=== PATIENT | male | born 1955 | race African-American/Black ===

== ENCOUNTER 2020-09-15 13:49 | Inpatient (IN) | payer MEDICARE, MEDICAID, SELFPAY ==
[2020-09-15] VITALS (44 sets, daily range): BP systolic 88–150; BP diastolic 43–114; PULSE 72–118; RESP 12–36; TEMP 34.8–36.4; O2SAT 68–100; BMI 25.8
--- NOTE | ~2020-09-15 | XR_ITS ---
EXAMINATION: XR chest ET placement DATE: 09/15/2020 16:50 INDICATION: Intubation. TECHNIQUE: A single frontal view of the chest was obtained. COMPARISON: Chest CT 09/15/2020 FINDINGS: There is mild atelectasis in the mid and lower lung zones. There is a diffuse interstitial pattern, consistent with mild pulmonary edema. No pleural effusion or pneumothorax. Cardiomegaly is n oted. The endotracheal tube tip is 4.3 cm above the royer. IMPRESSION: 1. Mild pulmonary edema. 2. Mild atelectasis in the mid and lower lung zones. 3. Cardiomegaly. Reviewed, dictated and finalized at location A.
--- NOTE | ~2020-09-15 | XR_ITS ---
EXAMINATION: XR chest 1V portable INDICATION: Respiratory failure TECHNIQUE: Portable AP chest at 0513 hours COMPARISON: 09/17/2020 FINDINGS: The endotracheal tube ends approximately 3.8 cm above the royer. Nasogastric tube is in th e stomach. Diffuse interstitial opacities persist in all lung zones, right greater than left, without significant change. Stable right basilar airspace opacities are noted. There is no pneumothorax. A s mall right pleural effusion persists. The left pleural effusion is no longer evident. Cardiomegaly is noted. IMPRESSION: 1. Cardiomegaly with stable pulmonary edema. 2. Stable right basilar airspace opacity, consistent with atelectasis versus pneumonia. Reviewed, dictated and finalized at location A. IMPRESSION: 1. Cardiomegaly with stable pulmonary edema. 2. Stable right basilar airspace opacity, consistent with atelectasis versus pn eumonia.
--- NOTE | ~2020-09-15 | XR_ITS ---
XR chest 1V portable 09/19/2020 05:26 Indication: Respiratory failure Procedure: AP portable chest Comparison: Comparison to multiple prior studies sequentially, with oldest reviewed study dated 08/2020. Findings: Cardiomegaly. Diffuse bilateral airspace disease. Small pleural effusions. No pneumothorax. Interval removal of endotracheal and NG tubes. Impression: 1: Progression of diffuse bilateral airspace disease, most likely edema versus pneumonia. 2: Small pleural effusions. 3: Cardiomegaly. Reviewed, dictated and finalized at location A. Impression: 1: Progression of diffuse bilateral airspace disease, most likely edema versus pneumonia. 2: Small pleural effusions. 3: Cardiomegaly.
--- NOTE | ~2020-09-15 | XR_ITS ---
EXAMINATION: XR chest 1V portable INDICATION: Respiratory failure TECHNIQUE: Portable AP chest at 0506 hours COMPARISON: 09/16/2020 FINDINGS: The endotracheal tube ends approximately 4.3 cm above the royer. The nasogastric tube is f ollowed as far as the stomach. Its tip is beyond the inferior margin of the radiograph. Diffuse inter stitial opacities persist with slight worsening. There are improved airspace opacities of the lower r ight lung base. A small right pleural effusion is decreased in size. There is a small left pleural ef fusion. No pneumothorax is identified. Cardiomegaly is noted. IMPRESSION: 1. Cardiomegaly with mild worsening of pulmonary edema. 2. Decreased right pleural effusion and new small left pleural effusion. 3. Improving right basilar airspace opacities, likely resolving atelectasis. Reviewed, dictated and finalized at location A.
--- NOTE | ~2020-09-15 | XR_ITS ---
EXAMINATION: XR abdomen NG/feed tube insert EXAM DATE: 09/16/2020 15:01 INDICATION: Orogastric tube insertion. TECHNIQUE: Frontal projection(s) of the abdomen for interpretation. Comparison is made to prior exami nation from 09/15/2020. FINDINGS: Feeding tube tip and side-port project over gastric bubble, adequate. Some scattered bibas ilar airspace disease with mild interval progression. And a small right pleural effusion has develope d. Nonobstructive upper abdominal bowel gas pattern. IMPRESSION: 1. Feeding tube in position. 2. Scattered bibasilar atelectasis or developing infection. 3. Development of small right pleural effusion. Reviewed, dictated and finalized at location B.
--- NOTE | ~2020-09-15 | CT_ITS ---
EXAMINATION: CTA chest PE abdomen pel DATE: 09/15/2020 16:04 INDICATION: Chest pain. Low abdominal pain. TECHNIQUE: Computed tomography angiography (CTA) of the chest was performed with 100 mL Omnipaque-350 intravenous contrast timed to evaluate the pulmonary arteries. Coronal maximum intensity projection 3D-reconstructions were created by the technologist. Computed tomography (CT) of the abdomen and pelv is was performed with intravenous contrast. Automated exposure control and iterative reconstruction t echnique were employed. The dose-length product was 609.79 mGy-cm. COMPARISON: CT abdomen 09/19/2006 FINDINGS: CTA chest: The lungs demonstrate smooth septal thickening, consistent with mild pulmonary edema. Ther e is mild atelectasis bilaterally. There are trace pleural effusions. Cardiomegaly is noted. No peric ardial effusion. There are coronary artery calcifications. There are calcifications of the aortic june ve. The central pulmonary arteries are enlarged, consistent with pulmonary arterial hypertension. The re is no pulmonary embolus. CT abdomen and pelvis: There is peripheral low attenuation in segment IVb of the liver. There is manager storage venkatesh pneumobilia, likely secondary to sphincterotomy. 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 The pancreas demonstrates heterogeneous attenuation and calcifications and adjacent fat stranding, consistent with zulyj-tt-mijnbbb pancreatitis. The spleen and adrenal gl ands are normal. The kidneys demonstrate striated nephrograms bilaterally with parenchymal volume los s. The prostate is mildly enlarged. There are no dilated loops of bowel. The appendix is normal. Ther e is mild gastrohepatic lymphadenopathy, likely reactive. There is trace pelvic ascites. There is mil d lumbar spondylosis. IMPRESSION: 1. No pulmonary embolus. 2. Mild pulmonary edema. 3. Acute and chronic pancreatitis. 4. Bilateral striated nephrograms with parenchymal volume loss, consistent with subacute infarcts jessi nichole pyelonephritis. 5. Ill-defined peripheral low-attenuation in the segment IVb of the liver, which may be infarct, hepa titis, or steatosis. 6. Mild gastrohepatic lymphadenopathy, likely reactive. Reviewed, dictated and finalized at location A. IMPRESSION: 1. No pulmonary embolus. 2. Mild pulmonary edema. 3. Acute and chronic pancreatitis. 4. Bilateral striated nephrograms with parenchymal volume loss, consistent with subacute infarcts versus pyelonephritis. 5. Ill-defined peripheral low-attenuation in the segment IVb of the liver, whic h may be infarct, hepatitis, or steatosis. 6. Mild gastrohepatic lymphadenopathy, likely reactive.
--- NOTE | ~2020-09-15 | XR_ITS ---
EXAMINATION: XR chest 1V portable INDICATION: Shortness of breath and weakness TECHNIQUE: Portable AP chest at 1512 hours COMPARISON: 09/19/2006 FINDINGS: There is chronic atelectasis of the lung bases. The heart size is upper limits of normal fo r technique. There is no pleural effusion or pneumothorax. IMPRESSION: 1. Chronic atelectasis of the lung bases. Reviewed, dictated and finalized at location A.
--- NOTE | ~2020-09-15 | XR_ITS ---
EXAMINATION: XR chest 1V portable INDICATION: Respiratory failure TECHNIQUE: Portable AP chest at 0505 hours COMPARISON: 09/15/2020 FINDINGS: The endotracheal tube ends approximately 3.5 cm above the royer. The nasogastric tube is f ollowed as far as the stomach. Its tip is beyond the inferior margin of the radiograph. A diffuse int erstitial pattern persists with slight worsening. Airspace opacity has developed at the right costoph renic angle. There is a small right pleural effusion. No pneumothorax is identified. Cardiomediastina l is noted. IMPRESSION: 1. Mild pulmonary edema with interval worsening. 2. Small right pleural effusion with right basilar airspace opacity, atelectasis versus pneumonia. Reviewed, dictated and finalized at location A. IMPRESSION: 1. Mild pulmonary edema with interval worsening. 2. Small right pleural effusion with right basilar airspace opacity, atelectasi s versus pneumonia.
--- NOTE | ~2020-09-15 | US_ITS ---
EXAMINATION: US abdomen limited EXAM DATE: 09/16/2020 09:38 INDICATION: Elevated liver function tests. TECHNIQUE: Multiple grayscale and Doppler images of the abdomen right upper quadrant were obtained (kirsten y a technologist who performed the scan) and subsequently reviewed. Correlation is made to CT abdomen from yesterday. FINDINGS: The pancreatic head and body are normal in appearance. The pancreatic tail is not visualized. There is echogenic liver parenchyma with poor penetration, hepatic steatosis. There are no focal liver le sions identified. There is no evidence of intrahepatic biliary duct dilation. Serpiginous anechoic structures at the benjamín hepatis probably collateralization from chronic portal vein thrombosis. Doppl er waveform within the portal vein demonstrates low resistance bidirectional flow. No thrombus identi fied on this study. No right-sided hydronephrosis. Common bile duct measures 3 mm, which is normal. The gallbladder fossa is unremarkable. IMPRESSION: 1. Serpiginous portal triad collateralization likely sequela from chronic prior portal vein thrombos is. 2. Abnormal bidirectional portal venous Doppler signal. Portal hypertension. 3. Hepatic steatosis. Reviewed, dictated and finalized at location B. IMPRESSION: 1. Serpiginous portal triad collateralization likely sequela from chronic prio r portal vein thrombosis. 2. Abnormal bidirectional portal venous Doppler signal. Portal hypertension. 3. Hepatic steatosis.
--- NOTE | ~2020-09-15 | XR_ITS ---
MODIFIED ESOPHAGRAM HISTORY: Evaluate for aspiration. TECHNIQUE: Modified barium esophagram was performed by speech pathologist under radiologist fluorosco pic guidance. This was recorded on tape. The exam was reviewed on 09/20/2020 10:57 CDT. The DAP for this procedure was 2.7 Gycm2. Fluoroscopy time is 3.6 minutes. One fluoroscopic image. FINDINGS: Lateral projection of the cervical spine demonstrates normal cervical alignment. There is normal swallowing function without penetration or aspiration. Persistent residual noted in the pirif orm sinuses and vallecula.. IMPRESSION: 1: Normal swallowing function without aspiration or penetration. 2: Please refer to speech pathologist report for additional detail. Reviewed, dictated and finalized at location A.
--- NOTE | ~2020-09-15 | XR_ITS ---
EXAMINATION: XR abdomen NG/feed tube insert DATE: 09/15/2020 20:17 INDICATION: Orogastric tube placement. TECHNIQUE: A supine view of the abdomen was obtained. COMPARISON: CT abdomen and pelvis 09/15/2020 FINDINGS: The lower abdomen is excluded. There are no dilated loops of bowel. The nasogastric tube ti p is in the stomach. There is mild atelectasis in left lower lung zone. There are interstitial opacit ies in the lungs, consistent with mild pulmonary edema. IMPRESSION: 1. Nasogastric tube tip in the stomach. 2. Mild pulmonary edema. Reviewed, dictated and finalized at location A.
--- NOTE | ~2020-09-15 | CT_ITS ---
EXAMINATION: CT brain wo con DATE: 09/15/2020 18:55 INDICATION: Unresponsive. TECHNIQUE: Computed tomography (CT) of the head was performed without intravenous contrast. The mA wa s adjusted according to patient size. Iterative reconstruction technique was employed. The dose-lengt h product was 681.00 mGy-cm. COMPARISON: None FINDINGS: Motion artifact is noted. There are scattered areas of low attenuation in the cerebral whit e matter. There is no intracranial hemorrhage, acute infarction, or abnormal intracranial mass lesion . The ventricles are normal in size. The orbits are normal. There is mucosal thickening in the parana nicolasa sinuses. The mastoid air cells are normal. IMPRESSION: 1. Moderate nonspecific cerebral white matter disease, which likely represents chronic small vessel i schemic disease. Reviewed, dictated and finalized at location A. IMPRESSION: 1. Moderate nonspecific cerebral white matter disease, which likely represents chronic small vessel ischemic disease.
--- NOTE | 2020-09-15 14:08 | ECG_ITS ---
Measurements Intervals [place] Rate: 103 P: 56 DE: 143 QRS: -35 QRSD: 94 T: 94 QT: 366 QTc: 480 Interpretive Statements SINUS TACHYCARDIA LEFT AXIS DEVIATION INCOMPLETE RIGHT BUNDLE BRANCH BLOCK BORDERLINE ST-T WAVE ABNORMALITY- DIFFUSE LEADS BASELINE ARTIFACT- I, II, AVR, AVL, AVF, V1-V2, V4-V6 BORDERLINE ECG Electronically Signed On 09-15-2020 14:46:47 CDT by Romulo Carrero D.O.
[2020-09-15 14:36] LABS: Anion Gap 31 mmol/L (8-16); Blood Urea Nitrogen 19 mg/dL (9-20); Calcium 9.5 mg/dL (8.4-10.2); Carbon Dioxide 6 mmol/L (22-30); Chloride 101 mmol/L (98-107); Estimated CRCL calculation 45 ml/min; Estimated Glomerular Filt Rate > 60; Glucose 97 mg/dL (75-110); Potassium 4.4 mmol/L (3.4-5.0); Sodium 138 mmol/L (137-145)
[2020-09-15 14:37] LABS: INR 2.2
[2020-09-15 14:38] LABS: Partial Thromboplastin Time 31.2 SECONDS (22.3-36.8)
--- NOTE | 2020-09-15 14:42 | ED.SOB ---
HPI - SOB/Dyspnea General Chief Complaint: Shortness of Breath/Dyspnea Stated Complaint: sob Time Seen by Provider: 09/15/20 13:53 Source: patient Mode of arrival: ambulatory Limitations: no limitations History of Present Illness HPI Narrative: This is a 65 year old male who presents for evaluation shortness of breath. On his arrival to triage he was found to have oxygen saturation 72% on room air. He states he has been short of breath for at least 2 weeks. He states he would have chest pain when he was performing activity at work. He denies having pain now. He also reports nonproductive cough and leg swelling. He has not been evaluated by a doctor in several years. He is unsure of fever or chills. He denies abdominal pain but reports intermittent nausea and vomiting. He states he had coffee ground emesis 4 days ago but denies any since. He denies melena. Denies issues urinating. HE also notes leg swelling. Related Data Home Medications Medication Instructions Recorded Confirmed No Home Medications 09/15/20 09/15/20 Allergies Allergy/AdvReac Type Severity Reaction Status Date / Time No Known Allergies Allergy Unknown Verified 09/15/20 14:05 Review of Systems Review of Systems: All systems reviewed & are unremarkable except as noted in HPI and below Constitutional: Constitutional: Denies chills and Denies fever(s) Cardiovascular: Cardiovascular: Reports chest pain and Denies radiating jaw, neck or arm pain Respiratory: Respiratory: Reports cough and Reports dyspnea Gastrointestinal: Gastrointestinal: Reports nausea and Reports vomiting Neurologic: Denies headache(s) [facility] Past Medical History Medical History (Updated 09/15/20 @ 21:56 by Lois Nix MD) PUD (peptic ulcer disease) Surgical History Surgical History (Updated 09/15/20 @ 14:43 by Lois Nix MD) H/O resection of small bowel Family History Family History (Updated 09/15/20 @ 20:42 by Leesa Glover RN) Other Unknown family medical history Social History Social History Smoking status: Unknown if ever smoked Alcohol intake: current Drinks per week: 28 Substance use: unknown Substance use type: unknown Gender identity (if verbalized by the patient): Male Spiritual care concerns: No Exam Const: General: no acute distress (mild), alert and ill appearing Orientation/consciousness: patient oriented x3 HENMT: Head: normocephalic and atraumatic Face and sinus: face symmetric Mouth: Yes lip normal, Yes oropharynx normal and Yes moist mucous membranes Eyes: Pupils: Equal, round and reactive pupils present EOM: EOMs intact bilaterally Chest: Chest palpation & inspection: normal inspection of the chest Resp: Effort & Inspection: not labored, no retractions, tachypneic and no use of accessory muscles Auscultation: clear to auscultation bilaterally Other: able to talk in complete sentences. Cardio: Rate: tachycardic Rhythm: regular rhythm Heart sounds: no murmurs GI: GI Palp: Yes Soft to palpation, Yes Tenderness to palpation present (GI) (epigastric, LUQ ), No Guarding due to palpation present (GI) and No Rigid due to palpation Auscultation: normal bowel sounds Other: brown stool guaic positive Skin: General skin exam: normal color Rashes: no rashes Neuro: General: patient oriented x3, moves all extremities and CN's II-XI intact bilaterally Psych: Mental Status: mental status grossly normal Affect: normal affect Course Reevaluation(s) Reevaluation #1: Patient appears to be breathing better. He is no longer tachypneic. I explained to patient and his brother that he has hemoglobin of 3 as likely cause of his critical condition. He is acidotic from. Pulse oximeter is not reading well but on ABG oxygenation appears to be okay. He is alert and oriented x 3. Date: 09/15/20 Time: 15:15 Reevaluation #2: Patient returned from CT scan obtunded. He was mumbling with arms c
[2020-09-15 14:44] LABS: Alveolar/Arterial O2 Gradient 452.4 mmHg; Base Excess ABG -19.2 mEq/l (+/-2.0); Fractional Inspired Oxygen 100 %; Oxygen Saturation ABG 99.5 % (95.0-100.0); Oxyhemoglobin 98.2 % THb (90.0-100.0); PO2 ABG 247.9 mmHg (80.0-100.0); PO2 FiO2 Ratio Arterial Blood 2.48 %; Reduced Hemoglobin 0.8 %THb (0-5.0)
[2020-09-15 14:45] LABS: PCO2 ABG 12.7 mmHg (35.0-45.0)
[2020-09-15 14:46] LABS: Device NON-REBREATHER MASK; Site Drawn RIGHT BRACHIAL; Total Hemoglobin 3.1 g/dL (12.0-18.0)
--- NOTE | 2020-09-15 14:48 | PC.NURSE ---
called lab, José, added on Hepatic, Lip, PT INR PTT [id number]
[2020-09-15 14:49] LABS: Lactic Acid Reflex 21.2 mmol/L (0.7-2.1)
[2020-09-15 14:54] LABS: NT Pro B Type Natriuretic Pept 3740 pg/mL (5-100); Troponin I 0.095 ng/mL (0.000-0.034)
[2020-09-15 14:58] LABS: Basophils Percent Auto 0.1 % (0.2-1.2); Immature Granulocyte Absolute 0.26 K/mm3 (0.00-0.031); Immature Granulocyte Percent A 1.6 % (0-0.5); Lymphocytes Absolute Auto 1.11 K/mm3 (0.9-3.2); Lymphocytes Percent Auto 6.9 % (18.3-44.2); Mean Corpuscular HGB Conc 22.3 g/dl (32-36); Mean Corpuscular Hemoglobin 17.8 pg (26-34); Mean Corpuscular Volume 79.6 fl (80-100); Mean Platelet Volume 10.3 fl (7.4-10.4); Monocytes Absolute Auto 1.1 K/mm3 (0.1-0.6); Neutrophils Absolute Auto 13.5 K/mm3 (1.3-6.7); Neutrophils Percent Auto 84.4 % (45.5-73.1); Nucleated Red Blood Cells Absolute Auto 0.3 K/mm3 (0.0-0.012); Nucleated Red Blood Cells Perc 2.1 % (0.0-0.2); Platelet Count Result 129 k/mm3 (150-375); Red Blood Count 1.52 M/mm3 (4.6-6.20); Red Cell Distribution Width 29.2 % (11.5-14.5)
[2020-09-15 15:07] LABS: Hematocrit 12.1 % (42.0-52.0); Hemoglobin 2.7 g/dL (14.0-18.0); INR 2.4; Prothrombin Time 26.8 Seconds (11.1-14.7)
[2020-09-15 15:08] LABS: Acanthocytes 1+ (NORMAL); Burr Cells 2+ (NORMAL); Hypochromasia 3+ (NORMAL); Partial Thromboplastin Time 26.3 SECONDS (22.3-36.8); Platelet Estimate Adequate (Adequate)
[2020-09-15 15:10] LABS: Albumin Level 3.6 g/dL (3.5-5.1); Alkaline Phosphatase 140 U/L (38-126); Bilirubin Direct 0.1 mg/dL (0-0.3); Lipase 513 U/L (23-300)
[2020-09-15 15:12] LABS: pH ABG 7.293 (7.350-7.450)
[2020-09-15 15:22] LABS: Alanine Aminotransferase 173 U/L (4-50); Aspartate Amino Transferase 385 U/L (17-59)
[2020-09-15] MEDS: PANTOPRAZOLE SODIUM IV 40 MG VIAL IV PUSH (15:30)
--- NOTE | 2020-09-15 16:10 | PC.NURSE ---
PT BACK FROM CT SCAN. BECAME RIGID AND GAZE TO LEFT WITH MOANING. DR OROSCO EMERGENTLY TO BEDSIDE.
--- NOTE | 2020-09-15 16:14 | PC.NURSE ---
EPI 1AMP GIVEN DEXTROSE 1AMP GIVEN
[2020-09-15] MEDS: SODIUM CHLORIDE 0.9% IV 1,000 ML 999 ML (16:15)
--- NOTE | 2020-09-15 16:15 | PC.NURSE ---
CPR INITIATED PER DR OROSCO REQUEST D/T PT'S EXTREME BRADYCARDIC EVENT.
--- NOTE | 2020-09-15 16:16 | PC.NURSE ---
1 AMP BICARB GIVEN
--- NOTE | 2020-09-15 16:16 | PC.NURSE ---
CPR IN PROGRESS
--- NOTE | 2020-09-15 16:17 | PC.NURSE ---
+PULSE WITH FEMORAL CHECK. CPR HELD. DR OROSCO AT BEDSIDE PREPARING TO INTUBATE.
--- NOTE | 2020-09-15 16:18 | PC.NURSE ---
8.0 ETT 26 @ LIP. +COLOR CHANGE.
--- NOTE | 2020-09-15 16:19 | PC.NURSE ---
PRBC BLOOD TO BEDSIDE TO INITIATE EMERGENTLY
[2020-09-15] MEDS: SODIUM CHLORIDE 0.9% IV 250 ML 30 ML IV CONT ×2 (16:25→20:00)
--- NOTE | 2020-09-15 16:30 | PC.NURSE ---
PT NOTED TO HAVE EYES DEVIATING TO THE L. DECORTICATE POSTURING FOR APPROX [address] OROSCO MADE AWARE.
[2020-09-15] MEDS: LORazepam INJ (*CRX) 2 MG/ML VIAL (16:37)
--- NOTE | 2020-09-15 16:40 | PC.NURSE ---
MAY CATH PLACED. SCANT AMOUNT URINE NOTED IN THE TUBE. PT LAURA WELL
--- NOTE | 2020-09-15 16:50 | PC.NURSE ---
PXCR IN PROGRESS AT THIS TIME.
[2020-09-15 16:55] LABS: Alveolar/Arterial O2 Gradient 90.1 mmHg; Base Excess ABG -28.6 mEq/l (+/-2.0); Fractional Inspired Oxygen 50 %; HCO3 ABG 2.7 mEq/l (22.0-26.0); Oxygen Content ABG 8.6 %vol (16.0-22.0); Oxygen Saturation ABG 98.9 % (95.0-100.0); Oxyhemoglobin 97.2 % THb (90.0-100.0); PO2 FiO2 Ratio Arterial Blood 4.96 %
[2020-09-15 16:57] LABS: Device VENTILATOR; Modified Allen's Test Pass; PCO2 ABG 16.4 mmHg (35.0-45.0); Site Drawn LEFT RADIAL; Total Hemoglobin 5.8 g/dL (12.0-18.0); pH ABG 6.833 (7.350-7.450)
[2020-09-15 16:58] LABS: Arterial Blood Gas PEEP 5 cmH2O; Arterial Blood Gas Tidal Volume 550 ml; Arterial Blood Gas Vent Mode CMV; Arterial Blood Gas Ventilator rate 14 /MIN
[2020-09-15 17:23] LABS: Reflex Lactic Acid Yes or No Add Lactic
[2020-09-15] MEDS: SODIUM BICARBONATE 8.4% 50 MEQ/50 ML SYRINGE IV PUSH ×3 (17:25→22:00)
--- NOTE | 2020-09-15 17:40 | PC.NURSE ---
CORA AT BEDSIDE TO PLACE TLC TO R FEMORAL.
--- NOTE | 2020-09-15 17:45 | P.PCNBED_ITS ---
Procedures Central Line Placement Right Femoral: Central Line Date: 09/15/20 <CHERRY Sheppard Last Filed: 09/15/20 18:21> Central Line Time: 17:45 <CHERRY Sheppard Last Filed: 09/15/20 18:21> Performed Emergently - Given emergent patient condition, temporal constraints may have precluded informed consent.: Yes <CHERRY Sheppard Last Filed: 09/15/20 18:21> Consent: Line placed under emergency circumstances. <SARAHI Sheppard Last Filed: 09/15/20 18:21> Time Out Performed: Yes <CHERRY Sheppard Last Filed: 09/15/20 18:21> Patient Position: supine <CHERRY Sheppard Last Filed: 09/15/20 18:21> Patient placed on monitor/pulse ox: Yes <CHERRY Sheppard Last Filed: 09/15/20 18:21> Provider Prep: mask, sterile gown, sterile gloves, Max. sterile barrier precautions, cap and hand hygiene with conventional soap/water or alcohol based hand rub <CHERRY Sheppard Last Filed: 09/15/20 18:21> Central line prep: 2% Chlorhexidine scrub <CHERRY Sheppard Last Filed: 09/15/20 18:21> Local anesthesia used: lidocaine 1% <CHERRY Sheppard Last Filed: 09/15/20 18:21> Amount of anesthesia used (ml): 5 <CHERRY Sheppard Last Filed: 09/15/20 18:21> Sterile US Technique with sterile gel/sterile probe covers: Yes <CHERRY Sheppard Last Filed: 09/15/20 18:21> Central line lumen inserted: triple <CHERRY Sheppard Last Filed: 09/15/20 18:21> Finnish: 7 <CHERRY Sheppard Last Filed: 09/15/20 18:21> Length (cm): 20 <CHERRY Sheppard Last Filed: 09/15/20 18:21> Post Procedure: sutured in place, good blood return, all ports aspirated, flushed, capped, transparent dressing, securement product and aseptic technique maintained throughout procedure <CHERRY Sheppard Last Filed: 09/15/20 18:21> Post procedure x-ray: other (n/a with femoral placement) <CHERRY Sheppard Last Filed: 09/15/20 18:21> Patient tolerated procedure: well <CHERRY Sheppard Last Filed: 09/15/20 18:21> Complications: none <CHERRY Sheppard Last Filed: 09/15/20 18:21> Additional comments: Line placed while patient was still in the emergency department. Attending ED physician, Dr. Lois Nix, available if needed. <CHERRY Sheppard Last Filed: 09/15/20 18:21>
[2020-09-15] MEDS: PHYTONADIONE ADULT INJ 10 MG in DEXTROSE 5% IN WATER 50 ML 100 MG IVPB (17:54)
--- NOTE | 2020-09-15 18:00 | PM.IMHP ---
H&P: HPI History of Present Illness Date/Time: 09/15/20 18:00 Chief Complaint: Shortness of breath. Narrative: This is a 65-year-old male who has not been to a doctor for several years with history of alcohol abuse, pancreatitis, and peptic ulcer disease who presented to the emergency department earlier today via private vehicle from home accompanied by his brother for evaluation of significant shortness of breath over the last 2 days. On arrival to triage his SpO2 was 72% on room air and he admitted that he had not been feeling well with increasing shortness of breath for the last 2 weeks. Reportedly he was having some chest pain while doing activities at work as well although he was not complaining of any chest pain today. He denied overt abdominal pain but has been having intermittent nausea and vomiting with reported coffee-ground emesis 4 days ago but none since that time. He was placed on oxygen had several labs drawn with pertinent results to include a hemoglobin and hematocrit of 2.7 and 12.1% respectively, lactic acid level of 21.2, prolonged coag studies, and an ABG with a pH of 7.293, pCO2 12.9, and bicarb 6.0. The patient returned from CT scan obtunded. He then became bradycardic and a pulse was unable to be palpated and CPR was initiated. He received 1 amp of epinephrine, an amp of D50, and 1 amp of bicarb with ROSC achieved within 3 minutes. He was intubated and shortly thereafter he had witnessed seizure-like activity. It is my understanding that he may have had alcohol withdrawal seizures before. Review of Systems Review of Systems: Narrative: A review of systems is unable to be obtained given his current clinical condition as above. [facility] Past Medical History Medical History (Updated 09/15/20 @ 23:42 by Jia Ochoa PA-C) Alcohol abuse Gastroesophageal reflux disease History of tobacco use Pancreatitis (~04/2003) Peptic ulcer disease Surgical History Surgical History (Updated 09/15/20 @ 23:28 by Jia Ochoa PA-C) History of chest tube placement History of esophagogastroduodenoscopy (~04/2003) EGD showed gastritis and edema of the duodenum with prominent veins in the gastric body though no true varices. History of resection of small bowel Related to peptic ulcer disease. Family History Family History Other Unknown family medical history Social History Social History (Updated 09/15/20 @ 23:30 by Jia Ochoa PA-C) Social History: The patient lives in [place]. EMR review shows that he previously smoked a pack of cigarettes per day although I am not certain whether he is currently smoking. He has a longstanding history of alcohol abuse, reportedly drinking 28 alcoholic beverages a week. Prior history of marijuana use. He has a brother who is his emergency contact. Meds Home Medications and Allergies Home Medications Medication Instructions Recorded Confirmed Type No Home Medications 09/15/20 09/15/20 History Allergies Allergy/AdvReac Type Severity Reaction Status Date / Time No Known Allergies Allergy Unknown Verified 09/15/20 14:05 Vital Signs Vital Signs - 24 hr 09/15/20 13:56 09/15/20 14:00 09/15/20 14:16 Temperature 96.6 F L Pulse Rate 115 H 103 H 101 H Respiratory Rate 36 H 23 H Blood Pressure 121/43 L 123/45 L Pulse Oximetry 72 L 85 L 09/15/20 14:31 09/15/20 15:01 09/15/20 15:17 Temperature Pulse Rate 103 H 104 H 102 H Respiratory Rate 31 H 24 H 26 H Blood Pressure 125/58 L 121/61 111/45 L Pulse Oximetry 09/15/20 15:35 09/15/20 15:39 09/15/20 16:20 Temperature 97 F L Pulse Rate 102 H 109 H 118 H Respiratory Rate 28 H 23 H 18 Blood Pressure 97/81 L 115/66 150/114 H Pulse Oximetry 09/15/20 16:25 09/15/20 16:45 09/15/20 16:46 Temperature 97 F L Pulse Rate 98 99 96 Respiratory Rate 22 H 21 H Blood Pressure 111/91 H 111/91 H Pulse Oximetry 100 10
[2020-09-15] MEDS: SODIUM BICARBONATE 8.4% 50 MEQ/50 ML VIAL (18:04)
[2020-09-15] MEDS: OCTREOTIDE ACETATE 50 MCG/ML VIAL IV PUSH (18:05)
[2020-09-15 18:24] LABS: Ammonia 56 umol/L (9-30)
[2020-09-15] MEDS: FENTANYL 2,500MCG/NS250ML(*CRX 2,500 MCG/250 ML BAG IV CONT (18:32)
[2020-09-15 18:35] LABS: Lactic Acid 21.4 mmol/L (0.7-2.1)
[2020-09-15] MEDS: MIDAZOLAM 100MG/NS 100ML(*CRX) 100 MG/100 ML BAG IV CONT (18:35)
--- NOTE | 2020-09-15 18:45 | PC.NURSE ---
PT TO CT FOR SCAN
[2020-09-15 19:00] LABS: Glucose Point of Care 63 (65-105)
--- NOTE | 2020-09-15 19:50 | ADMGEN ---
This patient, Gasper Correia, was admitted to Intensive Care Unit-2. Patient/family oriented to hospital policies and general routines including ID bracelet, bed and alarms, visiting hours, pain management, procedures, bathroom and other care routines, personal items, smoking policy, room service/diet, and visiting hours. Information on how to activate the Rapid Response Team has been discussed. Patient/Family are encouraged to report perceived risks to care and to ask questions if they do not understand what they are told or what they should do.
[2020-09-15 20:05] LABS: Fractional Inspired Oxygen 40 %; HCO3 ABG 9.5 mEq/l (22.0-26.0); Oxygen Content ABG 8.6 %vol (16.0-22.0); Oxygen Saturation ABG 97.6 % (95.0-100.0); Oxyhemoglobin 95.8 % THb (90.0-100.0); PO2 ABG 111.2 mmHg (80.0-100.0); PO2 FiO2 Ratio Arterial Blood 2.78 %
[2020-09-15 20:07] LABS: Device VENTILATOR; Modified Allen's Test Pass; PCO2 ABG 21.7 mmHg (35.0-45.0); Site Drawn RIGHT RADIAL; Total Hemoglobin 6.2 g/dL (12.0-18.0); pH ABG 7.261 (7.350-7.450)
[2020-09-15 20:08] LABS: Arterial Blood Gas PEEP 5 cmH2O; Arterial Blood Gas Tidal Volume 550 ml; Arterial Blood Gas Vent Mode CMV; Arterial Blood Gas Ventilator rate 14 /MIN
[2020-09-15 20:37] LABS: Partial Thromboplastin Time 35.2 SECONDS (22.3-36.8)
[2020-09-15 20:38] LABS: Anion Gap 26 mmol/L (8-16); Blood Urea Nitrogen 20 mg/dL (9-20); Calcium 8.5 mg/dL (8.4-10.2); Carbon Dioxide 12 mmol/L (22-30); Chloride 101 mmol/L (98-107); Estimated CRCL calculation 42 ml/min; Estimated Glomerular Filt Rate 57; Glucose 213 mg/dL (75-110); Magnesium 1.9 mg/dL (1.6-2.3); Potassium 3.9 mmol/L (3.4-5.0); Sodium 139 mmol/L (137-145)
[2020-09-15 20:50] LABS: Troponin I 0.161 ng/mL (0.000-0.034)
[2020-09-15] MEDS: SODIUM BICARBONATE 8.4% 150 MEQ in DEXTROSE 5% 1,000 ML 950 ML 50 MEQ IV CONT (21:25)
[2020-09-15] MEDS: CENTRAL LINE FLUSH 10 ML IV PUSH (22:07)
[2020-09-15 23:03] LABS: Lactic Acid Reflex 14.2 mmol/L (0.7-2.1)
[2020-09-16] VITALS (44 sets, daily range): BP systolic 89–117; BP diastolic 60–79; PULSE 72–100; RESP 12–27; TEMP 36.6–37.5; O2SAT 92–100; BMI 24.7
[2020-09-16] MEDS: THIAMINE HCL 200 MG/2 ML VIAL 100 MG IV PUSH ×2 (00:31→07:16)
[2020-09-16 03:44] LABS: Glucose Point of Care 321 (65-105)
[2020-09-16] MEDS: CENTRAL LINE FLUSH 10 ML IV PUSH ×4 (04:43→20:42)
[2020-09-16 04:45] LABS: Alveolar/Arterial O2 Gradient 179.5 mmHg; Base Excess ABG 3.1 mEq/l (+/-2.0); Fractional Inspired Oxygen 40 %; HCO3 ABG 24.9 mEq/l (22.0-26.0); Oxygen Content ABG 10.6 %vol (16.0-22.0); Oxygen Saturation ABG 96.9 % (95.0-100.0); Oxyhemoglobin 94.4 % THb (90.0-100.0); PCO2 ABG 27.2 mmHg (35.0-45.0); PO2 ABG 74.4 mmHg (80.0-100.0); PO2 FiO2 Ratio Arterial Blood 1.86 %
[2020-09-16 04:46] LABS: Device VENTILATOR; Modified Allen's Test Pass; Site Drawn RIGHT RADIAL; Total Hemoglobin 7.9 g/dL (12.0-18.0); pH ABG 7.579 (7.350-7.450)
[2020-09-16 04:47] LABS: Arterial Blood Gas PEEP 5 cmH2O; Arterial Blood Gas Tidal Volume 450 ml; Arterial Blood Gas Vent Mode CMV; Arterial Blood Gas Ventilator rate 20 /MIN
[2020-09-16 05:02] LABS: Basophils Percent Auto 0.3 % (0.2-1.2); Eosinophils Percent Auto 0.3 % (0-4.4); Hemoglobin 7.6 g/dL (14.0-18.0); Immature Granulocyte Absolute 0.12 K/mm3 (0.00-0.031); Immature Granulocyte Percent A 0.8 % (0-0.5); Immature Platelet Fraction Pct 5.3 % (0.9-11.2); Lymphocytes Absolute Auto 0.47 K/mm3 (0.9-3.2); Lymphocytes Percent Auto 3.2 % (18.3-44.2); Mean Corpuscular Hemoglobin 27.1 pg (26-34); Mean Corpuscular Volume 82.1 fl (80-100); Mean Platelet Volume 9.8 fl (7.4-10.4); Monocytes Absolute Auto 0.6 K/mm3 (0.1-0.6); Monocytes Percent Auto 4.1 % (2.6-8.5); Neutrophils Absolute Auto 13.3 K/mm3 (1.3-6.7); Neutrophils Percent Auto 91.3 % (45.5-73.1); Nucleated Red Blood Cells Absolute Auto 0.2 K/mm3 (0.0-0.012); Nucleated Red Blood Cells Perc 1.6 % (0.0-0.2); Platelet Count Result 65 k/mm3 (150-375); White Blood Count 14.6 K/mm3 (4.5-10.0)
[2020-09-16 05:12] LABS: Add Urine Microscopic? YES; Appearance Urine Cloudy (Clear); Bilirubin Urine Negative (Negative); Blood Urine 3+ (Negative); Color Urine Amber (Yellow); Glucose Urine UA Negative (Negative); Ketones Urine Trace mg/dL (Negative); Leukocyte Esterase Ur Negative LEU/UL (Negative); Mucus Urine Rare /lpf; Nitrate Urine Negative (Negative); Protein Urine 1+ mg/dL (Negative); RBC Urine 51-75 /hpf (0-2); Squamous Epithelial Cell Urine Rare /hpf (Few); WBC Urine 31-50 /hpf
[2020-09-16 05:17] LABS: Alanine Aminotransferase 200 U/L (4-50); Albumin Level 2.6 g/dL (3.5-5.1); Alkaline Phosphatase 102 U/L (38-126); Anion Gap 11 mmol/L (8-16); Aspartate Amino Transferase 625 U/L (17-59); Bilirubin,Total 2.3 mg/dL (0.2-1.3); Blood Urea Nitrogen 26 mg/dL (9-20); Calcium 8.2 mg/dL (8.4-10.2); Carbon Dioxide 29 mmol/L (22-30); Chloride 98 mmol/L (98-107); Creatine Kinase 121 U/L (55-170); Estimated CRCL calculation 45 ml/min; Estimated Glomerular Filt Rate > 60; Glucose 326 mg/dL (75-110); Lipase 1211 U/L (23-300); Magnesium 1.6 mg/dL (1.6-2.3); Potassium 3.3 mmol/L (3.4-5.0); Sodium 138 mmol/L (137-145)
[2020-09-16 05:19] LABS: Specific Grav Ur 1.047 (1.001-1.035)
[2020-09-16 05:27] LABS: Lactic Acid Reflex 4.6 mmol/L (0.7-2.1)
[2020-09-16 05:34] LABS: INR 1.8; Partial Thromboplastin Time 35.4 SECONDS (22.3-36.8); Prothrombin Time 21.3 Seconds (11.1-14.7)
[2020-09-16 05:50] LABS: Fibrinogen 152 mg/dl (215-510)
[2020-09-16 05:51] LABS: D Dimer 4.21 ug/mL (<0.48)
[2020-09-16 06:12] LABS: Hepatitis B Surface Antigen Negative (Negative)
[2020-09-16 06:17] LABS: HAV RESULT Negative (Negative); Hepatitis B Core IgM Result Negative (Negative)
[2020-09-16 06:29] LABS: Hepatitis C Virus Antibody Negative (Negative)
[2020-09-16] MEDS: FOLIC ACID 1 MG/0.2 ML INJ IV PUSH (07:15)
[2020-09-16 08:00] LABS: Reflex Lactic Acid Yes or No Add Lactic
[2020-09-16 08:14] LABS: Glucose Point of Care 404 (65-105)
[2020-09-16] MEDS: POTASSIUM CHLORIDE 20 MEQ PACKET (FOR LIQUID) 40 MEQ FEED TUBE (08:23)
[2020-09-16] MEDS: FUROSEMIDE INJ 40 MG/4 ML VIAL IV PUSH (08:23)
[2020-09-16] MEDS: SODIUM CHLORIDE 0.9% IV 250 ML 30 ML IV CONT (08:26)
[2020-09-16 08:34] LABS: Lactic Acid 2.4 mmol/L (0.7-2.1)
[2020-09-16] MEDS: INSULIN HUMAN REGULAR (*BKC) 100 UNITS/ML 10 UNITS IV PUSH (08:47)
[2020-09-16] MEDS: LACTULOSE 20 GM/30 ML UDC PO ×3 (08:56→23:15)
[2020-09-16] MEDS: PANTOPRAZOLE SODIUM IV 40 MG VIAL IV PUSH ×2 (08:56→20:42)
--- NOTE | 2020-09-16 09:15 | WPDCNINT ---
Assessment and Plan Assessment and plan (1) GI bleeding: Code(s): K92.2 - Gastrointestinal hemorrhage, unspecified Status: Acute Assessment and Plan: Patient with a history of peptic ulcer disease with reports of hematemesis 4 days ago, variceal bleed is also possibility Status post transfusion of 4 units PRBCs yesterday Monitor hemoglobin every 6 hours and transfuse as needed Continue IV Protonix and IV octreotide drip. Dr. Mac (Gastroenterology) consulted and plan for EGD today (2) Hemorrhagic shock: Code(s): R57.8 - Other shock Status: Acute Assessment and Plan: Initially patient was hypotensive and blood pressure is improved with blood transfusion and IV fluids Continue to monitor (3) Cardiac arrest: Code(s): I46.9 - Cardiac arrest, cause unspecified Status: Acute Assessment and Plan: Likely multifactorial in etiology to include profound acidosis and hemorrhagic shock. ROSC achieved within approximately 3 minute after receiving 1 amp each of epinephrine, sodium bicarbonate, and dextrose. He was making purposeful movement post intubation Pending Echocardiogram (4) Acute respiratory failure: Code(s): J96.00 - Acute respiratory failure, unspecified whether with hypoxia or hypercapnia Status: Acute Assessment and Plan: Chest x-ray ABG and ventilator settings reviewed Ventilator adjusted Lasix IV for pulmonary edema (5) Metabolic acidosis: Code(s): E87.2 - Acidosis Status: Acute Assessment and Plan: Patient is profoundly acidotic due to hypoperfusion and tissue hypoxemia given severe anemia. On IV bicarb infusion and given IV bicarb Acidosis has improved and IV bicarb has been discontinued (6) Alcohol abuse: Code(s): F10.10 - Alcohol abuse, uncomplicated Status: Acute Assessment and Plan: Patient reportedly had witnessed seizure activity post intubation and may have had an alcohol withdrawal seizure in the past. Currently sedated with Versed infusion Folate and thiamine supplementation. (7) Acute on chronic pancreatitis: Code(s): K85.90 - Acute pancreatitis without necrosis or infection, unspecified; K86.1 - Other chronic pancreatitis Status: Acute Assessment and Plan: Noted on CT today with a lipase of 513. Lipase elevation may be related to peptic ulcers as well. NPO at this time Monitor lipase (8) Abnormal abdominal CT scan: Code(s): R93.5 - Abnormal findings on diagnostic imaging of other abdominal regions, including retroperitoneum Status: Acute Assessment and Plan: In addition to acute on chronic pancreatitis there were also findings of subacute infarcts versus pyelonephritis in both kidneys as well as ill-defined peripheral low attenuation in segment 4B of the liver which may be infarct, hepatitis, or steatosis. Mild gastrohepatic lymphadenopathy also noted, likely reactive from pancreatitis and possible underlying peptic ulcers. No rule for anticoagulation if these are infarcts given profound anemia and GI bleed. (9) Elevated troponin: Code(s): R77.8 - Other specified abnormalities of plasma proteins Status: Acute Assessment and Plan: Likely secondary to shock anemia hemorrhage and sepsis Borderline ST waves in all leads, no ST elevation. Echocardiogram ordered (10) Transaminitis: Code(s): R74.01 - Elevation of levels of liver transaminase levels Status: Acute Assessment and Plan: Shock liver vs hepatitis or even possible infarct noted on CT today. Hepatitis panel negative Right upper quadrant ultrasound ordered and pending Continue to trend LFTs. (11) Coagulopathy: Code(s): D68.9 - Coagulation defect, unspecified Status: Acute Assessment and Plan: Likely secondary to deliver dysfunction. Patient received 3 units of FFP yesterday 10 mg of vitamin
[2020-09-16 11:08] LABS: Hematocrit 24.7 % (42.0-52.0); Hemoglobin 8.1 g/dL (14.0-18.0)
[2020-09-16 11:38] LABS: Glucose Point of Care 239 (65-105)
[2020-09-16] MEDS: INSULIN ASPART (*BKC) 100 UNITS/ML SUB-Q ×2 (11:41→15:33)
--- NOTE | 2020-09-16 14:17 | SUR.OPER ---
3 bottom teeth loose prior to EGD. 2 teeth came out after EGD with only 1 retrieved. used scope to look for tooth, it was not found in the mouth.
--- NOTE | 2020-09-16 14:48 | WPDGICN ---
Assessment and Plan Assessment and plan (1) GI bleeding: Code(s): K92.2 - Gastrointestinal hemorrhage, unspecified Status: Acute Assessment and Plan: s/p blood transfusion and iv protonix with octreotide he is an alcoholic, differential could be varices, ulcers, esophagitis, etc will proceed with urgent EGD to assess source of bleeding (2) Coffee ground emesis: Code(s): K92.0 - Hematemesis Status: Acute Assessment and Plan: noted by OGT, low BP improved after medical treatment (3) Severe anemia: Code(s): D64.9 - Anemia, unspecified Status: Acute Assessment and Plan: supportive care in icu with blood products, protonix, octreotide, etc EGD domonique continue to monitor counts (4) Shock liver: Code(s): K72.00 - Acute and subacute hepatic failure without coma Status: Acute Assessment and Plan: worsening liver enzymes probably due to severe anemia and shock, also underlying liver disease CT scan reviewed will get hepatitis panel he is an alcoholic (5) Hemorrhagic shock: Code(s): R57.8 - Other shock Status: Acute (6) Alcohol abuse: Code(s): F10.10 - Alcohol abuse, uncomplicated Status: Acute (7) Transaminitis: Code(s): R74.01 - Elevation of levels of liver transaminase levels Status: Acute (8) Seizure-like activity: Code(s): R56.9 - Unspecified convulsions Status: Acute Assessment and Plan: icu care thiamine, mvi, risk for DT's (9) Coagulopathy: Code(s): D68.9 - Coagulation defect, unspecified Status: Acute (10) Hepatic encephalopathy: Code(s): K72.90 - Hepatic failure, unspecified without coma Status: Acute (11) Metabolic acidosis: Code(s): E87.2 - Acidosis Status: Acute (12) Acute respiratory failure: Code(s): J96.00 - Acute respiratory failure, unspecified whether with hypoxia or hypercapnia Status: Acute Assessment and Plan: currently intubated (13) Cardiac arrest: Code(s): I46.9 - Cardiac arrest, cause unspecified Status: Acute Assessment and Plan: he received CPR yesterday prognosis is guarded GI Consult Note Consult date/time: 09/16/20 07:30 Reason for consult: GIB, coffee ground emesis, alcoholic HPI: Gasper Correia is a 65 year old male who is intubated in ICU (history obtained from records, no family right now). It seems that he has not been to a doctor for several years and he is an alcoholic (drinks 1 pint every other day based on RN report) with previous history of pancreatitis. Apparently he came with his brother for evaluation of significant shortness of breath over the last 2 days. He was hypoxic on arrival, also had chest pain with intermittent nausea and coffee ground emesis. He was found to have severe anemia with hb 2.7, platelet 65, inr 1.8, BUN 26, bili 2.3, transaminase 170-200, creat 1.5, lactic acid level of 21.2, ABG with a pH of 7.293, pCO2 12.9, and bicarb 6.0. He became bradycardic with no palpable pulse, received CPR with 1 amp of epinephrine, an amp of D50, and 1 amp of bicarb with ROSC achieved within 3 minutes. He was intubated and shortly thereafter he had witnessed seizure-like activity. OGT was placed that showed coffee ground material, also received blood transfusion and hb 7, lactic 2.4 now. He is on iv octreotide, protonix. He is not on pressors now. CT scan a/p reviewed No pulmonary embolus, mild pulmonary edema, Acute and chronic pancreatitis, bilateral striated nephrograms with parenchymal volume loss, consistent with subacute infarcts versus pyelonephritis. Review of Systems Review of Systems: ROS unobtainable: Yes unobtainable due to endotracheal tube, unobtainable due to medical condition and unobtainable due to mental status [facility] Past Medical History Medical History (Updated 09/16/20 @ 15:43 by Vahe Mac MD) Alcohol abuse Coffee ground emesis Gastr
--- NOTE | 2020-09-16 15:29 | PM.IMPN ---
Progress Note: A&P Assessment and Plan (1) Hemorrhagic shock: Code(s): R57.8 - Other shock Status: Acute Assessment and Plan: Hemoglobin and hematocrit are much better 2 improved to 8 (2) GI bleeding: Code(s): K92.2 - Gastrointestinal hemorrhage, unspecified Status: Acute Assessment and Plan: Patient with a history of peptic ulcer disease with reports of hematemesis 4 days ago. sp 4 units of blood On Protonix and octreotide drips. (Gastroenterology) consulted. (3) Cardiac arrest: Code(s): I46.9 - Cardiac arrest, cause unspecified Status: Acute Assessment and Plan: Likely multifactorial in etiology to include profound acidosis and hemorrhagic shock. (4) Acute respiratory failure: Code(s): J96.00 - Acute respiratory failure, unspecified whether with hypoxia or hypercapnia Status: Acute Assessment and Plan: Patient intubated post arrest. Vent management per Dr. Krishnamurthy (trade mark attorney). (5) Metabolic acidosis: Code(s): E87.2 - Acidosis Status: Acute Assessment and Plan: Patient is profoundly acidotic due to hypoperfusion and tissue hypoxemia given severe anemia. (6) Alcohol abuse: Code(s): F10.10 - Alcohol abuse, uncomplicated Status: Acute Assessment and Plan: Patient reportedly had witnessed seizure activity post intubation (7) Acute on chronic pancreatitis: Code(s): K85.90 - Acute pancreatitis without necrosis or infection, unspecified; K86.1 - Other chronic pancreatitis Status: Acute Assessment and Plan: lipase is 1211. Lipase elevation may be related to peptic ulcers as well. (8) Abnormal abdominal CT scan: Code(s): R93.5 - Abnormal findings on diagnostic imaging of other abdominal regions, including retroperitoneum Status: Acute Assessment and Plan: In addition to acute on chronic pancreatitis there were also findings of subacute infarcts versus pyelonephritis in both kidneys (9) Elevated troponin: Code(s): R77.8 - Other specified abnormalities of plasma proteins Status: Acute Assessment and Plan: Borderline ST waves in all leads, no ST elevation. (10) Transaminitis: Code(s): R74.01 - Elevation of levels of liver transaminase levels Status: Acute Assessment and Plan: Shock liver vs hepatitis or even possible infarct noted on CT today. (11) Coagulopathy: Code(s): D68.9 - Coagulation defect, unspecified Status: Acute Assessment and Plan: Repeat coags in a.m. (12) Seizure-like activity: Code(s): R56.9 - Unspecified convulsions Status: Acute Assessment and Plan: As above patient may have had an alcohol withdrawal seizure in the past. pt to have EEG today Subjective Date/time seen: 09/16/20 15:29 Review of Systems Review of Systems: All systems reviewed & are unremarkable except as noted in HPI and below Exam Narrative: Exam Narrative: General: Acutely ill-appearing male intubated. Neck: Supple. No JVD. Respiratory: Intubated and on mechanical ventilation. decreased BS BL Cardiovascular: Regular rate and rhythm with S1-S2. Gastrointestinal: Abdomen is soft, nontender, and nondistended with positive bowel sounds. Upper abdominal vertical midline scar. Genitourinary: Stephenson catheter contains dark yellow urine. Skin: Warm and dry. No rash or lesions on limited exam. Extremities: No cyanosis or clubbing. Neurological: Unresponsive and intubated. Psychiatric: Sedated Objective Data Vital Signs Vital Signs: Vital Signs - 24 hr 09/15/20 15:35 09/15/20 15:39 09/15/20 16:20 Temperature 36.1 C L Pulse Rate 102 H 109 H 118 H Respiratory Rate 28 H 23 H 18 Blood Pressure 97/81 L 115/66 150/114 H Pulse Oximetry 09/15/20 16:25 09/15/20 16:45 09/15/20 16:46 Temperature 36.1 C L Pulse Rate 9
[2020-09-16 15:34] LABS: Glucose Point of Care 271 (65-105)
[2020-09-16 16:36] LABS: Hematocrit 24.1 % (42.0-52.0); Hemoglobin 7.8 g/dL (14.0-18.0)
[2020-09-16 19:42] LABS: Glucose Point of Care 170 (65-105)
[2020-09-16 22:37] LABS: Hemoglobin 8.4 g/dL (14.0-18.0)
[2020-09-16 23:13] LABS: Glucose Point of Care 157 (65-105)
--- NOTE | 2020-09-16 23:56 | ECHO_ITS ---
Patient Info Name: Gasper Correia Age: 65 years : 1955 Gender: Male Ht: 68 in Wt: 169 lbs BSA: 1.93 m2 HR: 73 bpm BP: 91 / 61 mmHg Technical Quality: Good Exam Date: 09/16/2020 8:17 AM Exam Location: [facility] Patient Status: Inpatient Admit Date: 09/15/2020 Staff Ordering Physician: Jia Ochoa PA-C Brick Washer: Bhaskar August RDCS, RT Attending Provider: Gerry Thakur MD Referring Physician: Gabriela BATES; Exam Type: CA echo doppler color flow Study Info Indications I50.9 - Heart failure, unspecified Complete two-dimensional, color flow and Doppler transthoracic echocardiogram is performed. Strain analysis performed. Summary 1. Complete two-dimensional, color flow and Doppler transthoracic echocardiogram is performed. 2. Left ventricular chamber dimension is normal. 3. Left ventricular systolic function is normal, estimated at 60-65%. 4. Left ventricular septal wall motion is abnormal with septal motion related to bundle branch block. 5. The left ventricular diastolic function is abnormal. 6. E/e' 14 is mildly elevated. 7. Left atrial chamber dimension is mildly enlarged. 8. Right atrial chamber dimension is mildly enlarged. 9. There is moderate aortic valve sclerosis. 10. There is mild aortic valve stenosis with a peak velocity of 195 cm/s, mean gradient of 8 mmHg, and aortic valve area of 1.5 cm2. 11. There is mild to moderate mitral valve regurgitation. 12. There is mild tricuspid valve regurgitation. 13. Moderate pulmonary hypertension, estimated pulmonary arterial systolic pressure is 55 mmHg. 14. Dilated inferior vena cava with <50% collapse upon inspiration consistent with significantly elevated right atrial pressure, 15 mmHg. Left Ventricle E/e' 14 is mildly elevated. Left ventricular chamber dimension is normal. Left ventricular systolic function is normal, estimated at 60-65%. Left ventricular septal wall motion is abnormal with septal motion related to bundle branch block. The left ventricular diastolic function is abnormal. Right Ventricle Right ventricular systolic function is normal with normal TAPSE 1.7 cm.. Right ventricular chamber dimension is normal. Left Atria Left atrial chamber dimension is mildly enlarged. Right Atria Right atrial chamber dimension is mildly enlarged. Aortic Valve The aortic valve is trileaflet. There is moderate aortic valve sclerosis. There is mild aortic valve stenosis with a peak velocity of 195 cm/s, mean gradient of 8 mmHg, and aortic valve area of 1.5 cm2. There is no aortic valve regurgitation. Pulmonic Valve There is no pulmonic regurgitation. Mitral Valve There is no mitral valve stenosis. There is mild to moderate mitral valve regurgitation. Tricuspid Valve There is mild tricuspid valve regurgitation. Moderate pulmonary hypertension, estimated pulmonary arterial systolic pressure is 55 mmHg. Pericardium/Pleural There is no pericardial effusion. Inferior Vena Cava Dilated inferior vena cava with <50% collapse upon inspiration consistent with significantly elevated right atrial pressure, 15 mmHg. Aorta The aortic root size at the sinus of Valsalva is normal. Left Ventricular Outflow Tract Name Value Normal LVOT 2D
[2020-09-17] VITALS (30 sets, daily range): BP systolic 84–112; BP diastolic 59–77; PULSE 60–81; RESP 12–18; TEMP 36.4–37.2; O2SAT 96–100; BMI 24.9
[2020-09-17 03:08] LABS: Glucose Point of Care 139 (65-105)
[2020-09-17 05:04] LABS: Base Excess ABG 7.9 mEq/l (+/-2.0); Carboxyhemoglobin 0.3 % THb (0-2.0); Fractional Inspired Oxygen 40 %; HCO3 ABG 30.4 mEq/l (22.0-26.0); Methemoglobin ABG 0.4 %THb (0-1.5); Oxygen Content ABG 12.5 %vol (16.0-22.0); Oxygen Saturation ABG 97.5 % (95.0-100.0); Oxyhemoglobin 95.5 % THb (90.0-100.0); PCO2 ABG 34.3 mmHg (35.0-45.0); PO2 ABG 84.8 mmHg (80.0-100.0); PO2 FiO2 Ratio Arterial Blood 2.12 %; Reduced Hemoglobin 3.8 %THb (0-5.0); Total Hemoglobin 9.2 g/dL (12.0-18.0); pH ABG 7.566 (7.350-7.450)
[2020-09-17 05:05] LABS: Device VENTILATOR; Modified Allen's Test Pass; Site Drawn RIGHT RADIAL
[2020-09-17 05:06] LABS: Arterial Blood Gas PEEP 5 cmH2O; Arterial Blood Gas Tidal Volume 400 ml; Arterial Blood Gas Vent Mode CMV; Arterial Blood Gas Ventilator rate 16 /MIN
[2020-09-17] MEDS: CENTRAL LINE FLUSH 10 ML IV PUSH ×4 (05:36→20:04)
[2020-09-17 05:39] LABS: Hematocrit 26.3 % (42.0-52.0); Hemoglobin 8.4 g/dL (14.0-18.0); Immature Platelet Fraction Pct 6.2 % (0.9-11.2); Mean Corpuscular HGB Conc 31.9 g/dl (32-36); Mean Corpuscular Hemoglobin 26.8 pg (26-34); Mean Corpuscular Volume 83.8 fl (80-100); Platelet Count Result 47 k/mm3 (150-375); Red Blood Count 3.14 M/mm3 (4.6-6.20); Red Cell Distribution Width 21.9 % (11.5-14.5); White Blood Count 14.6 K/mm3 (4.5-10.0)
[2020-09-17 05:47] LABS: INR 1.8; Prothrombin Time 21.3 Seconds (11.1-14.7)
[2020-09-17 05:48] LABS: Partial Thromboplastin Time 35.1 SECONDS (22.3-36.8)
[2020-09-17 05:57] LABS: Alanine Aminotransferase 235 U/L (4-50); Albumin Level 2.4 g/dL (3.5-5.1); Alkaline Phosphatase 116 U/L (38-126); Anion Gap 2 mmol/L (8-16); Aspartate Amino Transferase 267 U/L (17-59); Bilirubin,Total 2.4 mg/dL (0.2-1.3); Blood Urea Nitrogen 19 mg/dL (9-20); Calcium 8.1 mg/dL (8.4-10.2); Carbon Dioxide 36 mmol/L (22-30); Chloride 100 mmol/L (98-107); Estimated CRCL calculation 69 ml/min; Estimated Glomerular Filt Rate > 60; Glucose 167 mg/dL (75-110); Magnesium 1.5 mg/dL (1.6-2.3); Potassium 2.8 mmol/L (3.4-5.0); Sodium 138 mmol/L (137-145)
[2020-09-17] MEDS: POTASSIUM CHLORIDE 20 MEQ PACKET (FOR LIQUID) 40 MEQ FEED TUBE (06:19)
[2020-09-17 08:32] LABS: Glucose Point of Care 115 (65-105)
[2020-09-17] MEDS: acetaZOLAMIDE SODIUM FOR INJ 500 MG VIAL IV PUSH (08:38)
[2020-09-17] MEDS: LACTULOSE 20 GM/30 ML UDC PO ×2 (08:38→17:58)
[2020-09-17] MEDS: MAGNESIUM SULF 2 GM/WATER 50ML 2 GM/50 ML BAG IVPB (08:38)
[2020-09-17] MEDS: FOLIC ACID 1 MG/0.2 ML INJ IV PUSH (08:38)
[2020-09-17] MEDS: THIAMINE HCL 200 MG/2 ML VIAL IV PUSH (08:39)
[2020-09-17] MEDS: PANTOPRAZOLE SODIUM IV 40 MG VIAL IV PUSH ×2 (08:39→20:05)
--- NOTE | 2020-09-17 09:33 | WPDINTPN ---
Progress Note: A&P Assessment and Plan (1) GI bleeding: Code(s): K92.2 - Gastrointestinal hemorrhage, unspecified Status: Acute Assessment and Plan: Patient with a history of peptic ulcer disease with reports of hematemesis 4 days ago, variceal bleed is also possibility Status post transfusion of 4 units PRBCs and hemoglobin now stable Patient underwent EGD which showed reflux esophagitis, gastritis, duodenitis Continue IV Protonix IV octreotide drip was discontinued Monitor hemoglobin but less frequently now (2) Hemorrhagic shock: Code(s): R57.8 - Other shock Status: Acute Assessment and Plan: Initially patient was hypotensive and blood pressure is improved with blood transfusion and IV fluids Continue to monitor (3) Cardiac arrest: Code(s): I46.9 - Cardiac arrest, cause unspecified Status: Acute Assessment and Plan: Likely multifactorial in etiology to include profound acidosis and hemorrhagic shock. ROSC achieved within approximately 3 minute after receiving 1 amp each of epinephrine, sodium bicarbonate, and dextrose. He was making purposeful movement post intubation Pending Echocardiogram (4) Acute respiratory failure: Code(s): J96.00 - Acute respiratory failure, unspecified whether with hypoxia or hypercapnia Status: Acute Assessment and Plan: Chest x-ray ABG and ventilator settings reviewed Ventilator adjusted for mixed alkalosis decreased rate to 14 and tidal volume to 350 Diamox and Lasix IV for pulmonary edema (5) Alcohol abuse: Code(s): F10.10 - Alcohol abuse, uncomplicated Status: Acute Assessment and Plan: Patient reportedly had witnessed seizure activity post intubation and may have had an alcohol withdrawal seizure in the past. Currently sedated with Versed infusion Folate and thiamine supplementation. (6) Acute on chronic pancreatitis: Code(s): K85.90 - Acute pancreatitis without necrosis or infection, unspecified; K86.1 - Other chronic pancreatitis Status: Acute Assessment and Plan: Noted on CT today with a lipase of 513. Lipase elevation may be related to peptic ulcers as well. NPO at this time Monitor lipase (7) Elevated troponin: Code(s): R77.8 - Other specified abnormalities of plasma proteins Status: Acute Assessment and Plan: Likely secondary to shock anemia hemorrhage and sepsis Borderline ST waves in all leads, no ST elevation. Echocardiogram ordered and is pending (8) Transaminitis: Code(s): R74.01 - Elevation of levels of liver transaminase levels Status: Acute Assessment and Plan: Shock liver vs hepatitis or even possible infarct noted on CT today. Hepatitis panel negative Right upper quadrant ultrasound IMPRESSION: 1. Serpiginous portal triad collateralization likely sequela from chronic prior portal vein thrombosis. 2. Abnormal bidirectional portal venous Doppler signal. Portal hypertension. 3. Hepatic steatosis. Continue to trend LFTs. (9) Coagulopathy: Code(s): D68.9 - Coagulation defect, unspecified Status: Acute Assessment and Plan: Likely secondary to deliver dysfunction. Patient received total 5 units of FFP and 10 mg of vitamin K was given Monitor coags (10) Seizure-like activity: Code(s): R56.9 - Unspecified convulsions Status: Acute Assessment and Plan: As above patient may have had an alcohol withdrawal seizure in the past. Continue seizure precautions. Currently sedated with Versed infusion Will consider EEG depending on neuro status. Head CT was negative Sedation holiday today (11) Sepsis: Code(s): A41.9 - Sepsis, unspecified organism Status: Acute Assessment and Plan: No clear source but patient met criteria for sepsis on presentation Patient was started on empiric vancomycin and cefepime which will be continu
--- NOTE | 2020-09-17 11:14 | PCDIET ---
Nutrition Assessment Complete: Inadequate oral intake related to inability to consume foods orally and GI bleed and mechanical vent as evidence by NPO order Total intake will meet estimated nutrition needs Goal: New goal established Additional Notes: If GI okay with enteral nutrition, recommend starting Vital 1.2 at 20ml/hr today for the next 24hrs. If tolerated, recommend advancing 10ml/hr Q 4 hrs to goal of 65ml/hr to provide 1716kcals, 107g protein and 1160ml of free water over 22hrs. If enteral nutrition is not appropriate in the next 24 hrs, recommend starting TPN with goal of 80ml/hr to provide 1863kcals, 96g protein, and 2170ml of free water. Following for feeding initiation, wt, labs, BMs, skin every T/F
[2020-09-17 12:53] LABS: Glucose Point of Care 144 (65-105)
[2020-09-17] MEDS: FUROSEMIDE INJ 40 MG/4 ML VIAL IV PUSH (13:54)
[2020-09-17] MEDS: POTASSIUM CHLORIDE 20 MEQ PACKET (FOR LIQUID) FEED TUBE (13:54)
[2020-09-17 14:20] LABS: Alveolar/Arterial O2 Gradient 125.8 mmHg; Fractional Inspired Oxygen 40 %; HCO3 ABG 29.1 mEq/l (22.0-26.0); Oxygen Content ABG 13.2 %vol (16.0-22.0); Oxygen Saturation ABG 98.3 % (95.0-100.0); Oxyhemoglobin 96.5 % THb (90.0-100.0); PCO2 ABG 40.9 mmHg (35.0-45.0); PO2 ABG 112.4 mmHg (80.0-100.0); PO2 FiO2 Ratio Arterial Blood 2.81 %; Total Hemoglobin 9.6 g/dL (12.0-18.0)
[2020-09-17 14:22] LABS: Device VENTILATOR; Modified Allen's Test Pass; Site Drawn LEFT RADIAL
[2020-09-17 14:23] LABS: Arterial Blood Gas PEEP 5 cmH2O; Arterial Blood Gas Pressure Support 5 cmH2O; Arterial Blood Gas Vent Mode SPONTANEOUS
--- NOTE | 2020-09-17 16:06 | PM.IMPN ---
Progress Note: A&P Assessment and Plan (1) Hemorrhagic shock: Code(s): R57.8 - Other shock Status: Acute Assessment and Plan: Hemoglobin and hematocrit is stable (2) GI bleeding: Code(s): K92.2 - Gastrointestinal hemorrhage, unspecified Status: Acute Assessment and Plan: Patient with a history of peptic ulcer disease with reports of hematemesis 4 days ago. sp 4 units of blood On Protonix and octreotide drips. (Gastroenterology) consulted. sp EGD (3) Cardiac arrest: Code(s): I46.9 - Cardiac arrest, cause unspecified Status: Acute Assessment and Plan: Likely multifactorial in etiology to include profound acidosis and hemorrhagic shock. (4) Acute respiratory failure: Code(s): J96.00 - Acute respiratory failure, unspecified whether with hypoxia or hypercapnia Status: Acute Assessment and Plan: Patient intubated post arrest. Vent management per Dr. Krishnamurthy (binder and wrapper packer). (5) Metabolic acidosis: Code(s): E87.2 - Acidosis Status: Acute Assessment and Plan: Patient is profoundly acidotic due to hypoperfusion and tissue hypoxemia given severe anemia. (6) Alcohol abuse: Code(s): F10.10 - Alcohol abuse, uncomplicated Status: Acute Assessment and Plan: Patient reportedly had witnessed seizure activity post intubation (7) Acute on chronic pancreatitis: Code(s): K85.90 - Acute pancreatitis without necrosis or infection, unspecified; K86.1 - Other chronic pancreatitis Status: Acute Assessment and Plan: Lipase elevation may be related to peptic ulcers as well. (8) Abnormal abdominal CT scan: Code(s): R93.5 - Abnormal findings on diagnostic imaging of other abdominal regions, including retroperitoneum Status: Acute Assessment and Plan: In addition to acute on chronic pancreatitis there were also findings of subacute infarcts versus pyelonephritis in both kidneys (9) Elevated troponin: Code(s): R77.8 - Other specified abnormalities of plasma proteins Status: Acute Assessment and Plan: Borderline ST waves in all leads, no ST elevation. (10) Transaminitis: Code(s): R74.01 - Elevation of levels of liver transaminase levels Status: Acute Assessment and Plan: Shock liver vs hepatitis or even possible infarct noted on CT today. (11) Coagulopathy: Code(s): D68.9 - Coagulation defect, unspecified Status: Acute Assessment and Plan: Repeat coags in a.m. (12) Seizure-like activity: Code(s): R56.9 - Unspecified convulsions Status: Acute Assessment and Plan: As above patient may have had an alcohol withdrawal seizure in the past. sp EEG Subjective Date/time seen: 09/17/20 16:06 Interval history: NO compliants stable on ventilator but still critical admitted with Hemorrhagic shock, CHF (congestive heart failure), GI bleeding, H/o Alcohol abuse. SP EGD and EEG, Weaning off, hopeful extubation tomorrow. No further GI bleeding Review of Systems Review of Systems: ROS unobtainable: Yes unobtainable due to endotracheal tube Exam Narrative: Exam Narrative: General: Acutely ill-appearing male intubated. Neck: Supple. No JVD. Respiratory: Intubated and on mechanical ventilation. decreased BS BL Cardiovascular: Regular rate and rhythm with S1-S2. Gastrointestinal: Abdomen is soft, nontender, and nondistended with positive bowel sounds. Upper abdominal vertical midline scar. Genitourinary: Stephenson catheter contains dark yellow urine. Skin: Warm and dry. No rash or lesions on limited exam. Extremities: No cyanosis or clubbing. Neurological: Unresponsive and intubated. Psychiatric: Sedated Objective Data Vital Signs Vital Signs: Vital Signs - 24 hr 09/16/20 17:15 09/16/20 17:16 09/16/20 17:59 Temperature Pulse Rate 81 79 81
--- NOTE | 2020-09-17 16:18 | WPDGIPROGNO ---
Progress Note: A&P Assessment and Plan (1) Gastric ulcer: Code(s): K25.9 - Gastric ulcer, unspecified as acute or chronic, without hemorrhage or perforation Status: Acute Assessment and Plan: continue with iv protonix bid egd yesterday, hb stable after blood transfusion (2) GI bleeding: Code(s): K92.2 - Gastrointestinal hemorrhage, unspecified Status: Acute Assessment and Plan: no more bleeding ok to start tube feeding by OGT (3) Severe anemia: Code(s): D64.9 - Anemia, unspecified Status: Acute Assessment and Plan: responded to blood transfusion and now stable (4) Shock liver: Code(s): K72.00 - Acute and subacute hepatic failure without coma Status: Acute Assessment and Plan: multifactorial, transaminases better today- he may have underlying liver disease (also alcoholic) hepatitis panel negative (5) Hepatic encephalopathy: Code(s): K72.90 - Hepatic failure, unspecified without coma Status: Acute Assessment and Plan: had cardiac arrest, 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 (6) Coagulopathy: Code(s): D68.9 - Coagulation defect, unspecified Status: Acute (7) Acute respiratory failure: Code(s): J96.00 - Acute respiratory failure, unspecified whether with hypoxia or hypercapnia Status: Acute Assessment and Plan: still intubated (8) Cardiac arrest: Code(s): I46.9 - Cardiac arrest, cause unspecified Status: Acute (9) Alcohol abuse: Code(s): F10.10 - Alcohol abuse, uncomplicated Status: Acute Subjective Date/time seen: 09/17/20 16:18 Interval history: no more report of bleeding, EGD yesterday showed diffuse non-bleeding ulcers still intubated without sedation and minimal response Review of Systems Review of Systems: All systems reviewed & are unremarkable except as noted in HPI and below Exam Const: General: ill appearing acutely Other: intubated HENMT: Other: 3 lower front tooth loose, ETT and OGT in place Eyes: Sclera: sclerae normal Neck: Neck: supple Resp: Auscultation: diminished lung sounds Cardio: Rate: regular rate GI: Inspection: non-distended GI Palp: No Guarding due to palpation present (GI) Auscultation: normal bowel sounds Urinary Catheter: Urinary Catheter: patent and draining Skin: General skin exam: no rashes or lesions noted Neuro: Other: minimal response Extrem: General: normal to inspection Objective Data Vital Signs Vital Signs: Vital Signs - 24 hr 09/16/20 17:15 09/16/20 17:16 09/16/20 17:59 Temperature Pulse Rate 81 79 81 Respiratory Rate 20 Blood Pressure Pulse Oximetry 97 09/16/20 18:00 09/16/20 19:45 09/16/20 20:00 Temperature 99.5 F Pulse Rate 84 80 80 Respiratory Rate 20 16 Blood Pressure 100/71 113/75 Pulse Oximetry 97 96 96 09/16/20 22:00 09/16/20 22:30 09/17/20 00:00 Temperature 99 F 98.8 F Pulse Rate 78 76 74 Respiratory Rate 14 14 Blood Pressure 117/79 112/77 Pulse Oximetry 100 99 100 09/17/20 01:45 09/17/20 01:56 09/17/20 02:00 Temperature 98.9 F Pulse Rate 70 69 69 Respiratory Rate 16 18 Blood Pressure 108/77 Pulse Oximetry 97 100 09/17/20 04:00 09/17/20 05:00 09/17/20 05:40 Temperature 98.5 F Pulse Rate 69 68 69 Respiratory Rate 16 18 Blood Pressure 110/73 Pulse Oximetry 100 100 09/17/20 05:41 09/17/20 06:00 09/17/20 08:00 Temperature 98.5 F 98.4 F Pulse Rate 60 67 66 Respiratory Rate 14 16 14 Blood Pressure 108/68 99/66 L Pulse Oximetry 100 100 09/17/20 08:22 09/17/20 08:23 09/17/20 10:00 Temperature 98.2 F Pulse Rate 77 71 81 Respiratory Rate 14 14 16 Blood Pressure 95/65 L Pulse Oximetry 100 100 09/17/20 10:40 09/17/20 12:00 09/17/20 13:28 Temperature Pulse Rate 77 74 75 Respiratory Rate Blood Pressure Pulse Oximetry 100 100 Intake/Output Intake/Output: Intake & Outpu
[2020-09-17 17:58] LABS: Glucose Point of Care 148 (65-105)
[2020-09-17 18:57] LABS: Hematocrit 27.4 % (42.0-52.0); Hemoglobin 8.7 g/dL (14.0-18.0); Mean Corpuscular HGB Conc 31.8 g/dl (32-36); Mean Corpuscular Hemoglobin 26.9 pg (26-34); Mean Corpuscular Volume 84.8 fl (80-100); Platelet Count Result 39 k/mm3 (150-375); Red Blood Count 3.23 M/mm3 (4.6-6.20); Red Cell Distribution Width 22.4 % (11.5-14.5)
[2020-09-17 19:07] LABS: Anion Gap 2 mmol/L (8-16); Blood Urea Nitrogen 18 mg/dL (9-20); Calcium 8.3 mg/dL (8.4-10.2); Carbon Dioxide 34 mmol/L (22-30); Chloride 102 mmol/L (98-107); Estimated CRCL calculation 62 ml/min; Estimated Glomerular Filt Rate > 60; Glucose 167 mg/dL (75-110); Magnesium 1.9 mg/dL (1.6-2.3); Potassium 3.2 mmol/L (3.4-5.0); Sodium 138 mmol/L (137-145)
[2020-09-17 20:07] LABS: Glucose Point of Care 144 (65-105)
[2020-09-17] MEDS: PROPOFOL IV EMULSION 100 ML 2.23 MG IV CONT (23:09)
[2020-09-18] VITALS (27 sets, daily range): BP systolic 90–138; BP diastolic 52–91; PULSE 61–96; RESP 13–26; TEMP 36.4–36.7; O2SAT 95–100
[2020-09-18] MEDS: LACTULOSE 20 GM/30 ML UDC PO ×2 (00:13→07:50)
[2020-09-18 00:16] LABS: Glucose Point of Care 160 (65-105)
[2020-09-18] MEDS: CENTRAL LINE FLUSH 10 ML IV PUSH ×4 (04:11→20:13)
[2020-09-18 04:35] LABS: Hematocrit 27.7 % (42.0-52.0); Hemoglobin 8.6 g/dL (14.0-18.0); Immature Platelet Fraction Pct 5.9 % (0.9-11.2); Mean Corpuscular Hemoglobin 27.1 pg (26-34); Mean Corpuscular Volume 87.4 fl (80-100); Platelet Count Result 38 k/mm3 (150-375); Red Blood Count 3.17 M/mm3 (4.6-6.20); Red Cell Distribution Width 22.4 % (11.5-14.5); White Blood Count 12.8 K/mm3 (4.5-10.0)
[2020-09-18 04:39] LABS: Alveolar/Arterial O2 Gradient 85.3 mmHg; Base Excess ABG 4.4 mEq/l (+/-2.0); Carboxyhemoglobin 0.3 % THb (0-2.0); Fractional Inspired Oxygen 30 %; HCO3 ABG 28.6 mEq/l (22.0-26.0); Methemoglobin ABG 0.5 %THb (0-1.5); Oxygen Content ABG 12.4 %vol (16.0-22.0); Oxygen Saturation ABG 96.4 % (95.0-100.0); Oxyhemoglobin 95.1 % THb (90.0-100.0); PO2 ABG 80.4 mmHg (80.0-100.0); PO2 FiO2 Ratio Arterial Blood 2.68 %; Reduced Hemoglobin 4.1 %THb (0-5.0); Total Hemoglobin 9.2 g/dL (12.0-18.0); pH ABG 7.461 (7.350-7.450)
[2020-09-18 04:40] LABS: Device VENTILATOR; Modified Allen's Test Pass; Site Drawn LEFT BRACHIAL
[2020-09-18 04:42] LABS: Ammonia < 9 umol/L (9-30)
[2020-09-18 04:43] LABS: Arterial Blood Gas PEEP 14 cmH2O; Arterial Blood Gas Tidal Volume 350 ml; Arterial Blood Gas Vent Mode CMV; Arterial Blood Gas Ventilator rate 14 /MIN
[2020-09-18 04:45] LABS: Alanine Aminotransferase 168 U/L (4-50); Albumin Level 2.4 g/dL (3.5-5.1); Alkaline Phosphatase 127 U/L (38-126); Anion Gap 2 mmol/L (8-16); Aspartate Amino Transferase 79 U/L (17-59); Bilirubin,Total 1.9 mg/dL (0.2-1.3); Blood Urea Nitrogen 16 mg/dL (9-20); Calcium 8.3 mg/dL (8.4-10.2); Carbon Dioxide 32 mmol/L (22-30); Chloride 105 mmol/L (98-107); Estimated CRCL calculation 62 ml/min; Estimated Glomerular Filt Rate > 60; Glucose 161 mg/dL (75-110); Lipase 229 U/L (23-300); Magnesium 1.9 mg/dL (1.6-2.3); Sodium 139 mmol/L (137-145)
[2020-09-18 07:48] LABS: Glucose Point of Care 171 (65-105)
[2020-09-18] MEDS: POTASSIUM CHLORIDE 20 MEQ PACKET (FOR LIQUID) 40 MEQ FEED TUBE (07:50)
[2020-09-18] MEDS: FUROSEMIDE INJ 40 MG/4 ML VIAL IV PUSH (07:50)
[2020-09-18] MEDS: PANTOPRAZOLE SODIUM IV 40 MG VIAL IV PUSH ×2 (07:51→20:13)
[2020-09-18] MEDS: THIAMINE HCL 200 MG/2 ML VIAL IV PUSH (07:51)
[2020-09-18] MEDS: FOLIC ACID 1 MG/0.2 ML INJ IV PUSH (07:51)
--- NOTE | 2020-09-18 08:19 | WPDCDIQUERY2 ---
CDI Query Clarification Request -Sepsis and No clear source but patient met criteria for sepsis on presentation has been documented -No infection documented -Infection must be present or suspected to meet sepsis criteria. Please clarify suspected source of infection or if sepsis has been ruled out.
[2020-09-18 08:56] LABS: Alveolar/Arterial O2 Gradient 145.5 mmHg; Base Excess ABG 3.5 mEq/l (+/-2.0); Fractional Inspired Oxygen 40 %; HCO3 ABG 27.5 mEq/l (22.0-26.0); Oxygen Content ABG 13.7 %vol (16.0-22.0); Oxygen Saturation ABG 97.5 % (95.0-100.0); Oxyhemoglobin 95.8 % THb (90.0-100.0); PCO2 ABG 39.7 mmHg (35.0-45.0); PO2 FiO2 Ratio Arterial Blood 2.35 %; Total Hemoglobin 10.1 g/dL (12.0-18.0); pH ABG 7.459 (7.350-7.450)
[2020-09-18 08:58] LABS: Device VENTILATOR; Modified Allen's Test Pass; Site Drawn LEFT RADIAL
[2020-09-18 08:59] LABS: Arterial Blood Gas PEEP 5 cmH2O; Arterial Blood Gas Pressure Support 5 cmH2O; Arterial Blood Gas Vent Mode SPONTANEOUS
--- NOTE | 2020-09-18 09:01 | WPDINTPN ---
Progress Note: A&P Assessment and Plan (1) GI bleeding: Code(s): K92.2 - Gastrointestinal hemorrhage, unspecified Status: Acute Assessment and Plan: Patient with a history of peptic ulcer disease with reports of hematemesis 4 days ago, variceal bleed is also possibility Status post transfusion of 4 units PRBCs and hemoglobin now stable Patient underwent EGD which showed reflux esophagitis, gastritis, duodenitis Continue IV Protonix IV octreotide drip was discontinued Monitor hemoglobin but less frequently now (2) Hemorrhagic shock: Code(s): R57.8 - Other shock Status: Acute Assessment and Plan: Initially patient was hypotensive and blood pressure is improved with blood transfusion and IV fluids Continue to monitor (3) Cardiac arrest: Code(s): I46.9 - Cardiac arrest, cause unspecified Status: Acute Assessment and Plan: Likely multifactorial in etiology to include profound acidosis and hemorrhagic shock. ROSC achieved within approximately 3 minute after receiving 1 amp each of epinephrine, sodium bicarbonate, and dextrose. He was making purposeful movement post intubation Echocardiogram Summary 1. Complete two-dimensional, color flow and Doppler transthoracic echocardiogram is performed. 2. Left ventricular chamber dimension is normal. 3. Left ventricular systolic function is normal, estimated at 60-65%. 4. Left ventricular septal wall motion is abnormal with septal motion related to bundle branch block. 5. The left ventricular diastolic function is abnormal. 6. E/e' 14 is mildly elevated. 7. Left atrial chamber dimension is mildly enlarged. 8. Right atrial chamber dimension is mildly enlarged. 9. There is moderate aortic valve sclerosis. 10. There is mild aortic valve stenosis with a peak velocity of 195 cm/s, mean gradient of 8 mmHg, and aortic valve area of 1.5 cm2. 11. There is mild to moderate mitral valve regurgitation. 12. There is mild tricuspid valve regurgitation. 13. Moderate pulmonary hypertension, estimated pulmonary arterial systolic pressure is 55 mmHg. 14. Dilated inferior vena cava with <50% collapse upon inspiration consistent with significantly elevated right atrial pressure, 15 mmHg. (4) Acute respiratory failure: Code(s): J96.00 - Acute respiratory failure, unspecified whether with hypoxia or hypercapnia Status: Acute Assessment and Plan: Chest x-ray ABG and ventilator settings reviewed Patient did well on weaning trial yesterday but was not extubated due to not being awake enough Patient placed on weaning trial again today. 5/5 PSV SBT done for more than 1 hour. RSBI, ABGI and Vitals acceptable. Pt awake and following commands. Will extubate and monitor. NPO for now. Patient has pulmonary edema on his chest x-ray and was given Lasix but may need Bipap PRN Continue Lasix IV for pulmonary edema (5) Alcohol abuse: Code(s): F10.10 - Alcohol abuse, uncomplicated Status: Acute Assessment and Plan: Patient reportedly had witnessed seizure activity post intubation and may have had an alcohol withdrawal seizure in the past. Currently sedated with Versed infusion Folate and thiamine supplementation. (6) Acute on chronic pancreatitis: Code(s): K85.90 - Acute pancreatitis without necrosis or infection, unspecified; K86.1 - Other chronic pancreatitis Status: Acute Assessment and Plan: Noted on CT today with a lipase of 513. Lipase elevation may be related to peptic ulcers as well. NPO at this time lipase level has normalized (7) Elevated troponin: Code(s): R77.8 - Other specified abnormalities of plasma proteins Status: Acute Assessment and Plan: Likely secondary to shock anemia hemorrhage and sepsis Borderline ST waves in all leads, no ST elevation. Echocardiogram ordered and reviewed (8) Transaminitis: Code(s): R74.01 - Elev
--- NOTE | 2020-09-18 11:47 | PCDIET ---
Nutrition Follow-Up Complete: Inadequate oral intake related to inability to consume foods orally and GI bleed and mechanical vent as evidence by NPO order Total intake will meet estimated nutrition needs Goal: Goal not met. Continue goal. Pt current nutrition is Vital 1.2 at 20ml/hr Nutrition recommendation: Recommend diet advancement to Low Na diet upon swallowing eval if appropriate Last recorded weight is 75.2 kg, up from assessed wt of 73.7kg (-418 I/O) Bowel Motility: No BM noted Labs Reviewed:WBC trending down 12.8, Glucose 161, AST/ALT 168/127 Meds Noted: Lactulose, Folic Acid, KCL, Protonix, Thiamin Additional Notes: Pt extubated. Pt was tolerating Vital 1.2 at 20. Recommend PO intake when appropriate of a low Na diet due to CHF. We will follow for adequate intake. If PO average intake below 50%, will offer Ensure compact BID to help meet needs. Following PO intake, wt, labs, BMs, skin every three days.
--- NOTE | 2020-09-18 12:32 | PM.IMPN ---
Progress Note: A&P Assessment and Plan (1) Hemorrhagic shock: Code(s): R57.8 - Other shock Status: Acute Assessment and Plan: Hemoglobin and hematocrit is stable at 8.6 acute blood loss anaemia (2) GI bleeding: Code(s): K92.2 - Gastrointestinal hemorrhage, unspecified Status: Acute Assessment and Plan: Patient with a history of peptic ulcer disease with reports of hematemesis 4 days ago. sp 4 units of blood On Protonix and octreotide drips. (Gastroenterology) consulted. sp EGD gi bleeding has stopped (3) Cardiac arrest: Code(s): I46.9 - Cardiac arrest, cause unspecified Status: Acute Assessment and Plan: Likely multifactorial in etiology to include profound acidosis and hemorrhagic shock. (4) Acute respiratory failure: Code(s): J96.00 - Acute respiratory failure, unspecified whether with hypoxia or hypercapnia Status: Resolved Assessment and Plan: Patient intubated post arrest. Vent management per Dr. Krishnamurthy (strategic account director). Extubated today. (5) Metabolic acidosis: Code(s): E87.2 - Acidosis Status: Resolved Assessment and Plan: Patient is profoundly acidotic due to hypoperfusion and tissue hypoxemia given severe anemia. (6) Alcohol abuse: Code(s): F10.10 - Alcohol abuse, uncomplicated Status: Acute Assessment and Plan: Patient reportedly had witnessed seizure activity post intubation, sp eeg, pt is on ciwa protocol and has thiamine (7) Acute on chronic pancreatitis: Code(s): K85.90 - Acute pancreatitis without necrosis or infection, unspecified; K86.1 - Other chronic pancreatitis Status: Acute Assessment and Plan: Lipase elevation may be related to peptic ulcers as well. continue protonix (8) Abnormal abdominal CT scan: Code(s): R93.5 - Abnormal findings on diagnostic imaging of other abdominal regions, including retroperitoneum Status: Acute Assessment and Plan: In addition to acute on chronic pancreatitis there were also findings of subacute infarcts versus pyelonephritis in both kidneys (9) Elevated troponin: Code(s): R77.8 - Other specified abnormalities of plasma proteins Status: Acute Assessment and Plan: Borderline ST waves in all leads, no ST elevation. (10) Transaminitis: Code(s): R74.01 - Elevation of levels of liver transaminase levels Status: Acute Assessment and Plan: Shock liver vs hepatitis or even possible infarct noted on CT today. (11) Coagulopathy: Code(s): D68.9 - Coagulation defect, unspecified Status: Acute Assessment and Plan: Repeat coags in a.m. plts and inr (12) Seizure-like activity: Code(s): R56.9 - Unspecified convulsions Status: Acute Assessment and Plan: As above patient may have had an alcohol withdrawal seizure in the past. sp EEG (13) Thrombocytopenia: Code(s): D69.6 - Thrombocytopenia, unspecified Status: Acute Assessment and Plan: platelets are low post bleed continue to monitor inr and plts Subjective Date/time seen: 09/18/20 12:32 Interval history: Pt admitted with Hemorrhagic shock, CHF (congestive heart failure), GI bleeding, H/o Alcohol abuse. Pt was extubated today but looks drowsy and still tired. No further GI bleeding. Review of Systems Review of Systems: All systems reviewed & are unremarkable except as noted in HPI and below Exam Narrative: Exam Narrative: General: Acutely ill-appearing male tired in the icu bed Neck: Supple. No JVD. Respiratory: Decreased BS BL Cardiovascular: Regular rate and rhythm with S1-S2. Gastrointestinal: Abdomen is soft, nontender, and nondistended with positive bowel sounds. Upper abdominal vertical midline scar. Genitourinary: Stephenson catheter contains dark yellow urine. Skin: Warm and dry. No rash o
[2020-09-18 13:40] LABS: Glucose Point of Care 209 (65-105)
[2020-09-18 13:40] LABS: Glucose Point of Care 182 (65-105)
--- NOTE | 2020-09-18 13:51 | WPDGIPROGNO ---
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 avoid more alcohol (3) Severe anemia: Code(s): D64.9 - Anemia, unspecified Status: Acute Assessment and Plan: hb low but stable after transfusion (4) Acute respiratory failure: Code(s): J96.00 - Acute respiratory failure, unspecified whether with hypoxia or hypercapnia Status: Resolved Assessment and Plan: extubated Subjective Date/time seen: 09/18/20 13:51 Interval history: extubated today, still drowsy, no signs of bleeding Review of Systems Review of Systems: All systems reviewed & are unremarkable except as noted in HPI and below Exam Const: Other: drowsy HENMT: General nose exam: Normal nares present Eyes: General: appearance normal, both eyes and all related structures Neck: Neck: supple Resp: Auscultation: diminished lung sounds Cardio: Rate: regular rate GI: Inspection: non-distended GI Palp: Yes Soft to palpation and No Firmness to palpation present (GI) Auscultation: normal bowel sounds Skin: General skin exam: no rashes or lesions noted Neuro: Other: drowsy Extrem: General: normal to inspection Objective Data Vital Signs Vital Signs: Vital Signs - 24 hr 09/17/20 14:00 09/17/20 16:00 09/17/20 16:45 Temperature 97.6 F 97.8 F Pulse Rate 74 77 75 Respiratory Rate 12 16 Blood Pressure 102/72 105/75 Pulse Oximetry 100 100 100 09/17/20 17:28 09/17/20 18:00 09/17/20 20:00 Temperature 98.3 F 98.2 F Pulse Rate 73 68 69 Respiratory Rate 14 16 Blood Pressure 95/66 L 94/68 L Pulse Oximetry 99 100 96 09/17/20 20:06 09/17/20 21:23 09/17/20 23:09 Temperature 98.1 F Pulse Rate 69 69 72 Respiratory Rate 16 14 Blood Pressure 96/66 L Pulse Oximetry 97 97 09/17/20 23:10 09/17/20 23:30 09/17/20 23:47 Temperature 98.2 F Pulse Rate 75 69 Respiratory Rate 14 Blood Pressure 84/59 L Pulse Oximetry 99 97 98 09/17/20 23:48 09/18/20 00:00 09/18/20 02:00 Temperature Pulse Rate 67 67 63 Respiratory Rate 14 14 Blood Pressure 95/52 L Pulse Oximetry 98 09/18/20 02:15 09/18/20 03:00 09/18/20 03:27 Temperature Pulse Rate 63 Respiratory Rate Blood Pressure Pulse Oximetry 99 98 97 09/18/20 03:32 09/18/20 03:37 09/18/20 04:00 Temperature 97.5 F L Pulse Rate 64 63 63 Respiratory Rate 14 14 Blood Pressure 99/65 L Pulse Oximetry 98 09/18/20 05:15 09/18/20 05:16 09/18/20 05:40 Temperature Pulse Rate 61 63 63 Respiratory Rate 13 14 Blood Pressure 90/62 L Pulse Oximetry 99 100 09/18/20 05:43 09/18/20 05:44 09/18/20 07:02 Temperature Pulse Rate 96 61 67 Respiratory Rate 14 Blood Pressure Pulse Oximetry 09/18/20 08:00 09/18/20 08:09 09/18/20 09:15 Temperature 97.6 F Pulse Rate 71 76 Respiratory Rate 22 H Blood Pressure 99/70 L Pulse Oximetry 98 97 95 09/18/20 10:00 Temperature 98.0 F Pulse Rate 76 Respiratory Rate 22 H Blood Pressure 99/67 L Pulse Oximetry 95 Intake/Output Intake/Output: Intake & Output 09/15/20 09/16/20 09/17/20 09/18/20 23:59 23:59 23:59 23:59 Intake Total 2863 1982.7 576.7 432 Output Total 1775 2400 850 Balance 2863 207.7 -1823.3 -418 Meds/Results Medications: Active Medications Generic Name Dose Route Start Last Admin Trade Name Freq PRN Reason Stop Dose Admin Acetaminophen 650 mg 09/16/20 19:01 Acetaminophen 325 Mg Tablet PO Q4H PRN Fever >101 Dextrose 12.5 gm 09/16/20 08:00 Dextrose 50% 25 Gm/50 Ml Syringe IV PUSH PRN PRN Hypoglycemia Protocol Folic
--- NOTE | 2020-09-18 14:31 | PCCPR ---
[facility] flyer was given to patient.
[2020-09-18 16:28] LABS: Glucose Point of Care 174 (65-105); Glucose Point of Care 203 (65-105)
[2020-09-18 20:18] LABS: Glucose Point of Care 177 (65-105)
[2020-09-18 23:22] LABS: Glucose Point of Care 145 (65-105)
[2020-09-19] VITALS (17 sets, daily range): BP systolic 110–138; BP diastolic 75–107; PULSE 75–111; RESP 16–28; TEMP 35.8–36.8; O2SAT 94–98
[2020-09-19] MEDS: CENTRAL LINE FLUSH 10 ML IV PUSH (03:46)
[2020-09-19 04:33] LABS: Alveolar/Arterial O2 Gradient 46.6 mmHg; Carboxyhemoglobin 0.3 % THb (0-2.0); Fractional Inspired Oxygen 24 %; HCO3 ABG 26.6 mEq/l (22.0-26.0); Methemoglobin ABG 0.3 %THb (0-1.5); Oxygen Content ABG 12.6 %vol (16.0-22.0); Oxygen Saturation ABG 95.4 % (95.0-100.0); PCO2 ABG 41.4 mmHg (35.0-45.0); PO2 ABG 75.3 mmHg (80.0-100.0); PO2 FiO2 Ratio Arterial Blood 3.14 %; Reduced Hemoglobin 5.4 %THb (0-5.0); Total Hemoglobin 9.5 g/dL (12.0-18.0); pH ABG 7.425 (7.350-7.450)
[2020-09-19 04:34] LABS: Device NASAL CANNULA; Modified Allen's Test Pass; Site Drawn LEFT RADIAL
[2020-09-19 05:42] LABS: Alanine Aminotransferase 132 U/L (4-50); Albumin Level 2.6 g/dL (3.5-5.1); Alkaline Phosphatase 139 U/L (38-126); Anion Gap 2 mmol/L (8-16); Aspartate Amino Transferase 42 U/L (17-59); Bilirubin,Total 1.5 mg/dL (0.2-1.3); Blood Urea Nitrogen 12 mg/dL (9-20); Calcium 8.8 mg/dL (8.4-10.2); Carbon Dioxide 28 mmol/L (22-30); Chloride 110 mmol/L (98-107); Estimated CRCL calculation 77 ml/min; Estimated Glomerular Filt Rate > 60; Glucose 161 mg/dL (75-110); Magnesium 1.7 mg/dL (1.6-2.3); Potassium 3.6 mmol/L (3.4-5.0); Sodium 140 mmol/L (137-145)
[2020-09-19 05:49] LABS: Hematocrit 27.4 % (42.0-52.0); Hemoglobin 8.3 g/dL (14.0-18.0); Immature Platelet Fraction Pct 6.7 % (0.9-11.2); Mean Corpuscular HGB Conc 30.3 g/dl (32-36); Mean Corpuscular Hemoglobin 26.4 pg (26-34); Mean Corpuscular Volume 87.3 fl (80-100); Platelet Count Result 38 k/mm3 (150-375); Red Blood Count 3.14 M/mm3 (4.6-6.20); Red Cell Distribution Width 22.2 % (11.5-14.5); White Blood Count 10.4 K/mm3 (4.5-10.0)
[2020-09-19] MEDS: THIAMINE HCL 200 MG/2 ML VIAL IV PUSH (08:25)
[2020-09-19] MEDS: PANTOPRAZOLE SODIUM IV 40 MG VIAL IV PUSH ×2 (08:25→20:18)
[2020-09-19] MEDS: FOLIC ACID 1 MG/0.2 ML INJ IV PUSH (08:25)
--- NOTE | 2020-09-19 10:16 | WPDINTPN ---
Progress Note: A&P Assessment and Plan (1) GI bleeding: Code(s): K92.2 - Gastrointestinal hemorrhage, unspecified Status: Acute Assessment and Plan: Patient with a history of peptic ulcer disease with reports of hematemesis 4 days ago, variceal bleed is also possibility Status post transfusion of 4 units PRBCs and hemoglobin now stable Patient underwent EGD which showed reflux esophagitis, gastritis, duodenitis Continue IV Protonix IV octreotide drip was discontinued Monitor hemoglobin daily (2) Hemorrhagic shock: Code(s): R57.8 - Other shock Status: Acute Assessment and Plan: Initially patient was hypotensive and blood pressure is improved with blood transfusion and IV fluids Continue to monitor (3) Cardiac arrest: Code(s): I46.9 - Cardiac arrest, cause unspecified Status: Acute Assessment and Plan: Likely multifactorial in etiology to include profound acidosis and hemorrhagic shock. ROSC achieved within approximately 3 minute after receiving 1 amp each of epinephrine, sodium bicarbonate, and dextrose. He was making purposeful movement post intubation Echocardiogram Summary 1. Complete two-dimensional, color flow and Doppler transthoracic echocardiogram is performed. 2. Left ventricular chamber dimension is normal. 3. Left ventricular systolic function is normal, estimated at 60-65%. 4. Left ventricular septal wall motion is abnormal with septal motion related to bundle branch block. 5. The left ventricular diastolic function is abnormal. 6. E/e' 14 is mildly elevated. 7. Left atrial chamber dimension is mildly enlarged. 8. Right atrial chamber dimension is mildly enlarged. 9. There is moderate aortic valve sclerosis. 10. There is mild aortic valve stenosis with a peak velocity of 195 cm/s, mean gradient of 8 mmHg, and aortic valve area of 1.5 cm2. 11. There is mild to moderate mitral valve regurgitation. 12. There is mild tricuspid valve regurgitation. 13. Moderate pulmonary hypertension, estimated pulmonary arterial systolic pressure is 55 mmHg. 14. Dilated inferior vena cava with <50% collapse upon inspiration consistent with significantly elevated right atrial pressure, 15 mmHg. (4) Acute respiratory failure: Code(s): J96.00 - Acute respiratory failure, unspecified whether with hypoxia or hypercapnia Status: Resolved Assessment and Plan: Patient was extubated yesterday after successful weaning trial. Now saturating well on nasal cannula Incentive spirometry and up in chair today Received Lasix for pulmonary edema (5) Alcohol abuse: Code(s): F10.10 - Alcohol abuse, uncomplicated Status: Acute Assessment and Plan: Patient reportedly had witnessed seizure activity post intubation and may have had an alcohol withdrawal seizure in the past. Currently sedated with Versed infusion Folate and thiamine supplementation. (6) Acute on chronic pancreatitis: Code(s): K85.90 - Acute pancreatitis without necrosis or infection, unspecified; K86.1 - Other chronic pancreatitis Status: Acute Assessment and Plan: Noted on CT today with a lipase of 513. Lipase elevation may be related to peptic ulcers as well. NPO at this time lipase level has normalized (7) Elevated troponin: Code(s): R77.8 - Other specified abnormalities of plasma proteins Status: Acute Assessment and Plan: Likely secondary to shock anemia hemorrhage and sepsis Borderline ST waves in all leads, no ST elevation. Echocardiogram ordered and reviewed (8) Transaminitis: Code(s): R74.01 - Elevation of levels of liver transaminase levels Status: Acute Assessment and Plan: Shock liver vs hepatitis or even possible infarct noted on CT today. Hepatitis panel negative Right upper quadrant ultrasound IMPRESSION: 1. Serpiginous portal triad collateralization likely sequela fr
[2020-09-19 12:36] LABS: Glucose Point of Care 124 (65-105)
--- NOTE | 2020-09-19 12:47 | PM.IMPN ---
Progress Note: A&P Assessment and Plan (1) Hemorrhagic shock: Code(s): R57.8 - Other shock Status: Acute Assessment and Plan: Hemoglobin and hematocrit is stable at 8.3 acute blood loss anaemia (2) GI bleeding: Code(s): K92.2 - Gastrointestinal hemorrhage, unspecified Status: Acute Assessment and Plan: Patient with a history of peptic ulcer disease with reports of hematemesis 4 days ago. sp 4 units of blood On Protonix iv (Gastroenterology) consulted. sp EGD Gi bleeding has stopped (3) Cardiac arrest: Code(s): I46.9 - Cardiac arrest, cause unspecified Status: Acute Assessment and Plan: Likely multifactorial in etiology to include profound acidosis and hemorrhagic shock. (4) Acute respiratory failure: Code(s): J96.00 - Acute respiratory failure, unspecified whether with hypoxia or hypercapnia Status: Resolved Assessment and Plan: Patient intubated post arrest. Vent management per Dr. Krishnamurthy (sustainability analyst). Extubated yesterday (5) Metabolic acidosis: Code(s): E87.2 - Acidosis Status: Resolved Assessment and Plan: Patient is profoundly acidotic due to hypoperfusion and tissue hypoxemia given severe anemia. (6) Alcohol abuse: Code(s): F10.10 - Alcohol abuse, uncomplicated Status: Acute Assessment and Plan: Patient reportedly had witnessed seizure activity post intubation, CT head is negative. pt is on ciwa protocol and has thiamine (7) Acute on chronic pancreatitis: Code(s): K85.90 - Acute pancreatitis without necrosis or infection, unspecified; K86.1 - Other chronic pancreatitis Status: Acute Assessment and Plan: Lipase elevation may be related to peptic ulcers as well. continue protonix (8) Abnormal abdominal CT scan: Code(s): R93.5 - Abnormal findings on diagnostic imaging of other abdominal regions, including retroperitoneum Status: Acute Assessment and Plan: In addition to acute on chronic pancreatitis there were also findings of subacute infarcts versus pyelonephritis in both kidneys (9) Elevated troponin: Code(s): R77.8 - Other specified abnormalities of plasma proteins Status: Acute Assessment and Plan: Borderline ST waves in all leads, no ST elevation. (10) Transaminitis: Code(s): R74.01 - Elevation of levels of liver transaminase levels Status: Acute Assessment and Plan: Shock liver vs hepatitis or even possible infarct noted on CT today. (11) Coagulopathy: Code(s): D68.9 - Coagulation defect, unspecified Status: Acute Assessment and Plan: Repeat coags in a.m. plts and inr (12) Seizure-like activity: Code(s): R56.9 - Unspecified convulsions Status: Acute Assessment and Plan: As above patient may have had an alcohol withdrawal seizure in the past. CT head negative, EEG never done. (13) Thrombocytopenia: Code(s): D69.6 - Thrombocytopenia, unspecified Status: Acute Assessment and Plan: Platelets are low post bleed continue to monitor inr and plts Subjective Date/time seen: 09/19/20 12:47 Interval history: Pt admitted with Hemorrhagic shock, CHF (congestive heart failure), GI bleeding, H/o Alcohol abuse. Pt was extubated yesterday, more alert today stable for transfer to the medical floor. No further bleeding, cough or seizures. Bp is stable. Review of Systems Review of Systems: All systems reviewed & are unremarkable except as noted in HPI and below Exam Narrative: Exam Narrative: General: Acutely ill-appearing male tired Neck: Supple. No JVD. Respiratory: Decreased BS BL Cardiovascular: Regular rate and rhythm with S1-S2. Gastrointestinal: Abdomen is soft, nontender, and nondistended with positive bowel sounds. Upper abdominal vertical midline scar. Genitourinary: Stephenson c
--- NOTE | 2020-09-19 14:50 | PC.NURSE ---
Received patient from ICU via bed with staff. Patient settled in room. No distress noted. No c/o pain. Patient arouses easily to name. nurse monitoring placed on patient. K rider infusing.
--- NOTE | 2020-09-19 15:05 | STIPEVAL ---
Thank you for referring Gasper Correia to Speech Therapy.? The Speech Evaluation is available in the medical record. Referring Physician Date Admitting Provider: Gerry Thakur MD Attending Provider: Gerry Thakur MD Referring Provider:
--- NOTE | 2020-09-19 15:54 | PC.NURSE ---
This patient, Gasper Correia, was transferred to [ 254] on 09/19/20 at 1554. Personal belongings sent with patient. Report given to [SONIA Faulkner ]. Appropriate documentation sent with patient.
[2020-09-19 18:15] LABS: Glucose Point of Care 158 (65-105)
[2020-09-19 20:23] LABS: Glucose Point of Care 183 (65-105)
[2020-09-19] MEDS: LORazepam (*CRX) 0.5 MG TABLET PO (23:58)
[2020-09-20] VITALS (14 sets, daily range): BP systolic 122–141; BP diastolic 77–84; PULSE 84–100; RESP 18–21; TEMP 36.2–38.1; O2SAT 93–100
[2020-09-20 05:59] LABS: INR 1.3; Prothrombin Time 16.4 Seconds (11.1-14.7)
[2020-09-20 06:06] LABS: Hematocrit 29.3 % (42.0-52.0); Hemoglobin 8.8 g/dL (14.0-18.0); Mean Corpuscular Hemoglobin 26.8 pg (26-34); Mean Corpuscular Volume 89.3 fl (80-100); Platelet Count Result 55 k/mm3 (150-375); Red Blood Count 3.28 M/mm3 (4.6-6.20); Red Cell Distribution Width 22.1 % (11.5-14.5); White Blood Count 12.7 K/mm3 (4.5-10.0)
[2020-09-20 06:17] LABS: Alanine Aminotransferase 100 U/L (4-50); Albumin Level 2.8 g/dL (3.5-5.1); Alkaline Phosphatase 161 U/L (38-126); Anion Gap 5 mmol/L (8-16); Aspartate Amino Transferase 40 U/L (17-59); Bilirubin,Total 1.5 mg/dL (0.2-1.3); Blood Urea Nitrogen 11 mg/dL (9-20); Calcium 9.1 mg/dL (8.4-10.2); Carbon Dioxide 25 mmol/L (22-30); Chloride 109 mmol/L (98-107); Estimated CRCL calculation 77 ml/min; Estimated Glomerular Filt Rate > 60; Glucose 160 mg/dL (75-110); Magnesium 1.7 mg/dL (1.6-2.3); Potassium 3.8 mmol/L (3.4-5.0); Sodium 139 mmol/L (137-145)
[2020-09-20 07:56] LABS: Glucose Point of Care 146 (65-105)
[2020-09-20] MEDS: PANTOPRAZOLE SODIUM IV 40 MG VIAL IV PUSH (09:38)
[2020-09-20] MEDS: LACTULOSE 20 GM/30 ML UDC PO (09:38)
[2020-09-20] MEDS: THIAMINE HCL 200 MG/2 ML VIAL IV PUSH (09:38)
--- NOTE | 2020-09-20 09:38 | PC.NURSE ---
call to pharmacy for missing dose of folic acid
--- NOTE | 2020-09-20 12:00 | PCSTNOTE ---
Please refer to the Modified Barium Swallow Evaluation in the EMR.
--- NOTE | 2020-09-20 12:29 | PM.IMPN ---
Progress Note: A&P Assessment and Plan (1) Hemorrhagic shock: Code(s): R57.8 - Other shock Status: Acute Assessment and Plan: Hemoglobin and hematocrit is stable at 8.8 acute blood loss anaemia (2) GI bleeding: Code(s): K92.2 - Gastrointestinal hemorrhage, unspecified Status: Resolved Assessment and Plan: Patient with a history of peptic ulcer disease with reports of hematemesis 4 days ago. sp 4 units of blood On Protonix iv change to oral (Gastroenterology) consulted. sp EGD Gi bleeding has stopped (3) Cardiac arrest: Code(s): I46.9 - Cardiac arrest, cause unspecified Status: Resolved Assessment and Plan: Likely multifactorial in etiology to include profound acidosis and hemorrhagic shock. (4) Acute respiratory failure: Code(s): J96.00 - Acute respiratory failure, unspecified whether with hypoxia or hypercapnia Status: Resolved Assessment and Plan: Patient intubated post arrest. Vent management per Dr. Krishnamurthy (cloud [employer] architect). Extubated yesterday (5) Metabolic acidosis: Code(s): E87.2 - Acidosis Status: Resolved Assessment and Plan: Patient is profoundly acidotic due to hypoperfusion and tissue hypoxemia given severe anemia. (6) Alcohol abuse: Code(s): F10.10 - Alcohol abuse, uncomplicated Status: Acute Assessment and Plan: Patient reportedly had witnessed seizure activity post intubation, CT head is negative. pt is on ciwa protocol and has thiamine (7) Acute on chronic pancreatitis: Code(s): K85.90 - Acute pancreatitis without necrosis or infection, unspecified; K86.1 - Other chronic pancreatitis Status: Acute Assessment and Plan: Lipase elevation may be related to peptic ulcers as well. continue protonix, continue to order lipase. (8) Abnormal abdominal CT scan: Code(s): R93.5 - Abnormal findings on diagnostic imaging of other abdominal regions, including retroperitoneum Status: Acute Assessment and Plan: In addition to acute on chronic pancreatitis there were also findings of subacute infarcts versus pyelonephritis in both kidneys (9) Elevated troponin: Code(s): R77.8 - Other specified abnormalities of plasma proteins Status: Acute Assessment and Plan: Borderline ST waves in all leads, no ST elevation. (10) Transaminitis: Code(s): R74.01 - Elevation of levels of liver transaminase levels Status: Acute Assessment and Plan: Shock liver vs hepatitis or even possible infarct noted on CT today. (11) Coagulopathy: Code(s): D68.9 - Coagulation defect, unspecified Status: Acute Assessment and Plan: Repeat coags in a.m. plts and inr (12) Seizure-like activity: Code(s): R56.9 - Unspecified convulsions Status: Acute Assessment and Plan: As above patient may have had an alcohol withdrawal seizure in the past. CT head negative, EEG never done. (13) Thrombocytopenia: Code(s): D69.6 - Thrombocytopenia, unspecified Status: Acute Assessment and Plan: Platelets are low post bleed continue to monitor inr and plts (14) Weakness: Code(s): R53.1 - Weakness Status: Acute Assessment and Plan: Both lower legs weak secondary to deconditioned state. Subjective Date/time seen: 09/20/20 12:30 Interval history: Pt admitted with Hemorrhagic shock, CHF (congestive heart failure), GI bleeding, H/o Alcohol abuse. Pt was extubated. Pt is presently on the medical floor. Pt is having purred diet appears more alert and more talkative today but is very weak. Pt had a fall while trying to stand today. Long discussion with patient regarding quitting drinking alcholol. Review of Systems Review of Systems: All systems reviewed & are unremarkable except as noted in HPI and below Exam Narrative: Exam Narrat
[2020-09-20 12:41] LABS: Glucose Point of Care 212 (65-105)
[2020-09-20] MEDS: INSULIN ASPART (*BKC) 100 UNITS/ML SUB-Q (13:03)
[2020-09-20 16:57] LABS: Glucose Point of Care 74 (65-105)
[2020-09-20 21:11] LABS: Glucose Point of Care 161 (65-105)
[2020-09-21] VITALS (10 sets, daily range): BP systolic 125–135; BP diastolic 80–88; PULSE 83–107; RESP 18–20; TEMP 36.1–36.7; O2SAT 98–99
--- NOTE | 2020-09-21 01:05 | ECG_ITS ---
Measurements Intervals [place] Rate: 102 P: 56 NE: 132 QRS: -52 QRSD: 92 T: 188 QT: 383 QTc: 501 Interpretive Statements SINUS TACHYCARDIA LEFT AXIS DEVIATION T WAVE ABNORMALITY IN ANTEROLATERAL LEADS- CONSIDER ISCHEMIA BASELINE ARTIFACT- I, II, AVR ABNORMAL ECG Electronically Signed On 09-21-2020 7:05:59 CDT by Romulo Carrero D.O.
[2020-09-21] MEDS: OLANZapine 10 MG INJ VIAL 2.5 MG IM (01:35)
--- NOTE | 2020-09-21 03:21 | PC.NURSE ---
Pt is confused. He wants to go home. He is getting agitated and hard to redirect. He keeps trying to get out of bed. He is hallucinating. Watching closely. Bed exit alarm activated.
--- NOTE | 2020-09-21 04:14 | PC.NURSE ---
Pt is trying to get out of bed. He wants to leave. He is confused and anxious. Watching closely. Bed exit alarm activated.
[2020-09-21 05:57] LABS: Hematocrit 28.3 % (42.0-52.0); Hemoglobin 8.5 g/dL (14.0-18.0); Immature Platelet Fraction Pct 10.5 % (0.9-11.2); Mean Corpuscular Hemoglobin 26.8 pg (26-34); Mean Corpuscular Volume 89.3 fl (80-100); Platelet Count Result 80 k/mm3 (150-375); Red Blood Count 3.17 M/mm3 (4.6-6.20); Red Cell Distribution Width 22.6 % (11.5-14.5); White Blood Count 15.8 K/mm3 (4.5-10.0)
[2020-09-21 06:03] LABS: Alanine Aminotransferase 81 U/L (4-50); Albumin Level 2.9 g/dL (3.5-5.1); Alkaline Phosphatase 170 U/L (38-126); Anion Gap 6 mmol/L (8-16); Aspartate Amino Transferase 43 U/L (17-59); Bilirubin,Total 1.3 mg/dL (0.2-1.3); Blood Urea Nitrogen 10 mg/dL (9-20); Calcium 9.1 mg/dL (8.4-10.2); Carbon Dioxide 23 mmol/L (22-30); Chloride 110 mmol/L (98-107); Estimated CRCL calculation 77 ml/min; Estimated Glomerular Filt Rate > 60; Glucose 137 mg/dL (75-110); INR 1.3; Magnesium 1.5 mg/dL (1.6-2.3); Potassium 3.6 mmol/L (3.4-5.0); Prothrombin Time 16.5 Seconds (11.1-14.7); Sodium 139 mmol/L (137-145)
[2020-09-21 06:49] LABS: Glucose Point of Care 134 (65-105)
[2020-09-21 08:02] LABS: Glucose Point of Care 126 (65-105)
[2020-09-21] MEDS: THIAMINE HCL 100 MG TABLET PO (08:37)
[2020-09-21] MEDS: FOLIC ACID 1 MG TABLET PO (08:37)
[2020-09-21] MEDS: PANTOPRAZOLE 40 MG TABLET PO (08:37)
[2020-09-21] MEDS: LACTULOSE 20 GM/30 ML UDC PO (08:37)
[2020-09-21 11:44] LABS: Glucose Point of Care 191 (65-105)
--- NOTE | 2020-09-21 11:56 | PCNFU ---
Nutrition Follow-Up Complete: Inadequate oral intake related to inability to consume foods orally and GI bleed and mechanical vent as evidence by NPO order Goal: total intake will meet estimated nutrition needs Progressing towards goal. WE will continue current goal. Pt current nutrition is Soft and Bite Sized, Level 6 Last recorded weight is 71.5 kg,down from Bowel Motility:BM reported 09/18. Labs Reviewed:Alb 2.9,Glu 137, Hgb 8.5,Hct 28.3. Meds Noted: Thiamine,Folic Acid, Protonix, Novolog, Lactulose. Additional Notes: Nutrition follow up. MBS: Patient upgraded 09/20 to a soft and bite sized, Level 6 diet. Oral Intake fair: 45-75% of meals. Recommend: ensure compact BID providing an additional 220 kcals and 9 gms protein. Monitoring: wt, labs, BMs, every 5 days.
--- NOTE | 2020-09-21 12:18 | PCSTNOTE ---
Please refer to the Modified Barium Swallow Evaluation in the EMR.
--- NOTE | 2020-09-21 12:19 | PCSTNOTE ---
Please refer to the Modified Barium Swallow Evaluation in the EMR.
--- NOTE | 2020-09-21 12:28 | PM.IMPN ---
Progress Note: A&P Assessment and Plan (1) Hemorrhagic shock: Code(s): R57.8 - Other shock Status: Acute Assessment and Plan: Hemoglobin and hematocrit is stable at 8.5 acute blood loss anaemia (2) GI bleeding: Code(s): K92.2 - Gastrointestinal hemorrhage, unspecified Status: Resolved Assessment and Plan: Patient with a history of peptic ulcer disease with reports of hematemesis 4 days ago. sp 4 units of blood On Protonix iv change to oral (Gastroenterology) consulted. sp EGD Gi bleeding has stopped (3) Cardiac arrest: Code(s): I46.9 - Cardiac arrest, cause unspecified Status: Resolved Assessment and Plan: Likely multifactorial in etiology to include profound acidosis and hemorrhagic shock. (4) Acute respiratory failure: Code(s): J96.00 - Acute respiratory failure, unspecified whether with hypoxia or hypercapnia Status: Resolved Assessment and Plan: Patient intubated post arrest. Vent management per Dr. Krishnamurthy (manager leasing). Extubated doing well on room air (5) Metabolic acidosis: Code(s): E87.2 - Acidosis Status: Resolved Assessment and Plan: Patient is profoundly acidotic due to hypoperfusion and tissue hypoxemia given severe anemia. (6) Alcohol abuse: Code(s): F10.10 - Alcohol abuse, uncomplicated Status: Acute Assessment and Plan: Patient reportedly had witnessed seizure activity post intubation, CT head is negative. pt is on ciwa protocol and has thiamine (7) Acute on chronic pancreatitis: Code(s): K85.90 - Acute pancreatitis without necrosis or infection, unspecified; K86.1 - Other chronic pancreatitis Status: Acute Assessment and Plan: Lipase elevation may be related to peptic ulcers as well. continue protonix, continue to order lipase. Pt is tolerating a diet (8) Abnormal abdominal CT scan: Code(s): R93.5 - Abnormal findings on diagnostic imaging of other abdominal regions, including retroperitoneum Status: Acute Assessment and Plan: In addition to acute on chronic pancreatitis there were also findings of subacute infarcts versus pyelonephritis in both kidneys (9) Elevated troponin: Code(s): R77.8 - Other specified abnormalities of plasma proteins Status: Acute Assessment and Plan: Borderline ST waves in all leads, no ST elevation. (10) Transaminitis: Code(s): R74.01 - Elevation of levels of liver transaminase levels Status: Acute Assessment and Plan: Shock liver vs hepatitis or even possible infarct noted on CT today. (11) Coagulopathy: Code(s): D68.9 - Coagulation defect, unspecified Status: Acute Assessment and Plan: Repeat coags in a.m. plts and inr (12) Seizure-like activity: Code(s): R56.9 - Unspecified convulsions Status: Acute Assessment and Plan: As above patient may have had an alcohol withdrawal seizure in the past. CT head negative, EEG never done. (13) Thrombocytopenia: Code(s): D69.6 - Thrombocytopenia, unspecified Status: Acute Assessment and Plan: Platelets are low post bleed continue to monitor inr and plts (14) Weakness: Code(s): R53.1 - Weakness Status: Acute Assessment and Plan: Both lower legs weak secondary to deconditioned state. Continue PT in hospital, pt does not want to go to a placement. (15) Leucocytosis: Code(s): D72.829 - Elevated white blood cell count, unspecified Status: Acute Assessment and Plan: Wcc is high, ? stress reaction pt does not appear with infection Subjective Date/time seen: 09/21/20 12:28 Interval history: Pt admitted with Hemorrhagic shock, CHF (congestive heart failure), GI bleeding, H/o Alcohol abuse. Pt was extubated. Pt is presently on the medical floor. Pt is having purred diet appears more
[2020-09-21 17:32] LABS: Glucose Point of Care 170 (65-105)
[2020-09-21 17:57] LABS: Glucose Point of Care 178 (65-105)
[2020-09-21 19:19] LABS: SARS-CoV-2 RNA PCR Negative
[2020-09-21] MEDS: QUEtiapine FUMARATE 25 MG TABLET PO (20:29)
[2020-09-21 20:37] LABS: Glucose Point of Care 163 (65-105)
[2020-09-21] MEDS: ACETAMINOPHEN 325 MG TABLET 650 MG PO (22:28)
[2020-09-21] MEDS: ALPRAZolam (*CRX) 0.25 MG TABLET PO (22:28)
[2020-09-22 00:37] VITALS: BP 128/80; PULSE 94; RESP 18; TEMP 36.4; O2SAT 99
[2020-09-22 05:11] VITALS: BP 134/80; PULSE 88; RESP 18; TEMP 36.6; O2SAT 96
[2020-09-22 05:44] LABS: Hematocrit 25.4 % (42.0-52.0); Hemoglobin 7.9 g/dL (14.0-18.0); Mean Corpuscular HGB Conc 31.1 g/dl (32-36); Mean Corpuscular Hemoglobin 27.1 pg (26-34); Platelet Count Result 106 k/mm3 (150-375); Red Blood Count 2.92 M/mm3 (4.6-6.20); Red Cell Distribution Width 22.9 % (11.5-14.5); White Blood Count 15.3 K/mm3 (4.5-10.0)
[2020-09-22 05:52] LABS: Anion Gap 5 mmol/L (8-16); Blood Urea Nitrogen 7 mg/dL (9-20); Calcium 9.1 mg/dL (8.4-10.2); Carbon Dioxide 23 mmol/L (22-30); Chloride 110 mmol/L (98-107); Estimated CRCL calculation 87 ml/min; Estimated Glomerular Filt Rate > 60; Glucose 124 mg/dL (75-110); Potassium 3.4 mmol/L (3.4-5.0); Sodium 138 mmol/L (137-145)
[2020-09-22 07:40] LABS: Glucose Point of Care 125 (65-105)
[2020-09-22] MEDS: PANTOPRAZOLE 40 MG TABLET PO (08:04)
[2020-09-22] MEDS: THIAMINE HCL 100 MG TABLET PO (08:04)
[2020-09-22] MEDS: LACTULOSE 20 GM/30 ML UDC PO (08:04)
[2020-09-22] MEDS: FOLIC ACID 1 MG TABLET PO (08:04)
--- NOTE | 2020-09-22 08:26 | PM.IMPN ---
Progress Note: A&P Assessment and Plan (1) Hemorrhagic shock: Code(s): R57.8 - Other shock Status: Acute Assessment and Plan: Secondary to GI bleed was treated with 4 unit blood transfusion Protonix drip octreotide drip IV fluid (2) GI bleeding: Code(s): K92.2 - Gastrointestinal hemorrhage, unspecified Status: Resolved Assessment and Plan: Patient with a history of peptic ulcer disease with reports of hematemesis 4 days ago. sp 4 units of blood On Protonix (Gastroenterology) consulted recommendation appreciated. sp EGD Gi bleeding has stopped (3) Cardiac arrest: Code(s): I46.9 - Cardiac arrest, cause unspecified Status: Resolved Assessment and Plan: Secondary to hemorrhagic shock. (4) Acute respiratory failure: Code(s): J96.00 - Acute respiratory failure, unspecified whether with hypoxia or hypercapnia Status: Resolved Assessment and Plan: Patient intubated post arrest. Extubated doing well on room air (5) Metabolic acidosis: Code(s): E87.2 - Acidosis Status: Resolved Assessment and Plan: Patient is profoundly acidotic due to hypoperfusion and tissue hypoxemia given severe anemia and hemorrhagic shock resolved. (6) Alcohol abuse: Code(s): F10.10 - Alcohol abuse, uncomplicated Status: Acute Assessment and Plan: Patient reportedly had witnessed seizure activity post intubation, CT head is negative. pt is on ciwa protocol and has thiamine Probably related to shock no antiepileptic medication for now continue to monitor seizure precaution (7) Acute on chronic pancreatitis: Code(s): K85.90 - Acute pancreatitis without necrosis or infection, unspecified; K86.1 - Other chronic pancreatitis Status: Acute Assessment and Plan: Treated with IV hydration, (8) Abnormal abdominal CT scan: Code(s): R93.5 - Abnormal findings on diagnostic imaging of other abdominal regions, including retroperitoneum Status: Acute Assessment and Plan: In addition to acute on chronic pancreatitis there were also findings of subacute infarcts versus pyelonephritis in both kidneys (9) Elevated troponin: Code(s): R77.8 - Other specified abnormalities of plasma proteins Status: Acute Assessment and Plan: Borderline ST waves in all leads, no ST elevation. (10) Transaminitis: Code(s): R74.01 - Elevation of levels of liver transaminase levels Status: Acute Assessment and Plan: Shock liver vs hepatitis or even possible infarct noted on CT today. (11) Coagulopathy: Code(s): D68.9 - Coagulation defect, unspecified Status: Acute Assessment and Plan: Continue to monitor (12) Seizure-like activity: Code(s): R56.9 - Unspecified convulsions Status: Acute Assessment and Plan: As above patient may have had an alcohol withdrawal seizure in the past. CT head negative with no driving for 6 months (13) Thrombocytopenia: Code(s): D69.6 - Thrombocytopenia, unspecified Status: Acute Assessment and Plan: Most likely related to chronic alcoholism (14) Weakness: Code(s): R53.1 - Weakness Status: Acute Assessment and Plan: Both lower legs weak secondary to deconditioned state. Continue PT in hospital, pt does not want to go to a placement. (15) Leucocytosis: Code(s): D72.829 - Elevated white blood cell count, unspecified Status: Acute Assessment and Plan: Wcc is high, ? stress reaction pt does not appear with infection continue to monitor Subjective Date/time seen: 09/22/20 08:26 Interval history: Pt admitted with Hemorrhagic shock, CHF (congestive heart failure), GI bleeding, H/o Alcohol abuse. Pt was extubated. Patient had the EGD shows esophagitis gastritis patient had 4 units blood transfusion treated with octreoti
[2020-09-22 10:00] VITALS: BP 125/84; PULSE 103; RESP 18; TEMP 36.8; O2SAT 100
[2020-09-22] MEDS: ACETAMINOPHEN 325 MG TABLET 650 MG PO (11:39)
[2020-09-22 11:50] LABS: Glucose Point of Care 169 (65-105)
[2020-09-22 13:56] LABS: Add Urine Microscopic? YES; Appearance Urine Cloudy (Clear); Bilirubin Urine 1+ (Negative); Blood Urine 3+ (Negative); Color Urine Amber (Yellow); Glucose Urine UA Negative (Negative); Hyaline Casts Urine 15-19 /lpf; Ketones Urine Negative (Negative); Leukocyte Esterase Ur 1+ LEU/UL (Negative); Mucus Urine Few /lpf; Nitrate Urine Negative (Negative); Protein Urine 1+ mg/dL (Negative); RBC Urine >75 /hpf (0-2); Specific Grav Ur 1.024 (1.001-1.035); Squamous Epithelial Cell Urine Rare /hpf (Few); WBC Urine 31-50 /hpf
[2020-09-22 14:00] VITALS: BP 133/87; PULSE 99; RESP 18; TEMP 36.6; O2SAT 100
--- NOTE | 2020-09-22 14:01 | WPDCN ---
Assessment and Plan Assessment and plan (1) Leucocytosis: Code(s): D72.829 - Elevated white blood cell count, unspecified Status: Acute (2) Weakness: Code(s): R53.1 - Weakness Status: Acute (3) Thrombocytopenia: Code(s): D69.6 - Thrombocytopenia, unspecified Status: Acute (4) Gastric ulcer: Code(s): K25.9 - Gastric ulcer, unspecified as acute or chronic, without hemorrhage or perforation Status: Acute (5) Electrolyte abnormality: Code(s): E87.8 - Other disorders of electrolyte and fluid balance, not elsewhere classified Status: Acute (6) Severe anemia: Code(s): D64.9 - Anemia, unspecified Status: Acute (7) Shock liver: Code(s): K72.00 - Acute and subacute hepatic failure without coma Status: Acute (8) Coffee ground emesis: Code(s): K92.0 - Hematemesis Status: Acute (9) Hyperglycemia: Code(s): R73.9 - Hyperglycemia, unspecified Status: Acute (10) Hepatic encephalopathy: Code(s): K72.90 - Hepatic failure, unspecified without coma Status: Acute (11) Sepsis: Code(s): A41.9 - Sepsis, unspecified organism Status: Acute (12) Seizure-like activity: Code(s): R56.9 - Unspecified convulsions Status: Acute (13) Coagulopathy: Code(s): D68.9 - Coagulation defect, unspecified Status: Acute (14) Transaminitis: Code(s): R74.01 - Elevation of levels of liver transaminase levels Status: Acute (15) Elevated troponin: Code(s): R77.8 - Other specified abnormalities of plasma proteins Status: Acute (16) Abnormal abdominal CT scan: Code(s): R93.5 - Abnormal findings on diagnostic imaging of other abdominal regions, including retroperitoneum Status: Acute (17) Acute on chronic pancreatitis: Code(s): K85.90 - Acute pancreatitis without necrosis or infection, unspecified; K86.1 - Other chronic pancreatitis Status: Acute (18) Metabolic acidosis: Code(s): E87.2 - Acidosis Status: Resolved (19) Acute respiratory failure: Code(s): J96.00 - Acute respiratory failure, unspecified whether with hypoxia or hypercapnia Status: Resolved (20) Cardiac arrest: Code(s): I46.9 - Cardiac arrest, cause unspecified Status: Resolved (21) Alcohol abuse: Code(s): F10.10 - Alcohol abuse, uncomplicated Status: Acute (22) Hemorrhagic shock: Code(s): R57.8 - Other shock Status: Acute (23) CHF (congestive heart failure): Code(s): I50.9 - Heart failure, unspecified Status: Acute (24) GI bleeding: Code(s): K92.2 - Gastrointestinal hemorrhage, unspecified Status: Resolved (25) Alcohol abuse: Code(s): F10.10 - Alcohol abuse, uncomplicated Status: Acute Additional Plan 65-year-old gentleman who looks older than his stated age with medically complicated hospital course that includes GI bleeding, cardiac arrest, respiratory failure, acute on chronic pancreatitis, metabolic acidosis, hemorrhagic shock, acute on chronic hallucinations, and generalized weakness. Patient lives with his sister who is epileptic and a brother who recently . Sister will not be able to assist patient if he returns home. Other family members may be able to take turns staying at the house to assist both the brother and sister ( unknown how long this arrangement can go on) Family members state that patient has been having hallucinations for over 6 months. Patient was hallucinating at time of my exam and examiner. Please see my exam for details. Discharge planning and ability to attend to task and not have hallucination that would impact acute rehab program is a concern. Patient would benefit from ongoing PT OT ST but may not meet acute rehab criteria. Other option for Gasper to receive PT OT ST is at SNF. Will continue to follow. Thank you HPI Data of Consult
[2020-09-22 17:44] LABS: Glucose Point of Care 160 (65-105)
[2020-09-22 18:00] VITALS: BP 130/82; PULSE 80; RESP 18; TEMP 36.4; O2SAT 100
[2020-09-22] MEDS: QUEtiapine FUMARATE 25 MG TABLET PO (21:06)
[2020-09-22 22:00] VITALS: BP 148/80; PULSE 100; RESP 20; TEMP 36.4; O2SAT 98
[2020-09-22 23:01] LABS: Glucose Point of Care 133 (65-105)
[2020-09-23 00:45] VITALS: BP 134/77; PULSE 95; RESP 20; TEMP 36.9; O2SAT 100
[2020-09-23 06:00] VITALS: BP 148/78; PULSE 97; RESP 20; TEMP 37.1; O2SAT 98
[2020-09-23] MEDS: FOLIC ACID 1 MG TABLET PO (08:17)
[2020-09-23] MEDS: PANTOPRAZOLE 40 MG TABLET PO (08:17)
[2020-09-23] MEDS: LACTULOSE 20 GM/30 ML UDC PO (08:17)
[2020-09-23] MEDS: THIAMINE HCL 100 MG TABLET PO (08:17)
[2020-09-23 08:21] LABS: Glucose Point of Care 117 (65-105)
--- NOTE | 2020-09-23 09:35 | PM.DS ---
DS: Admitting Diagnosis Admitting Diagnosis Admitting Diagnosis: Acute pancreatitis DS: Discharge Diagnosis Discharge Diagnosis (1) Hemorrhagic shock: Code(s): R57.8 - Other shock Status: Acute Assessment and Plan: Secondary to GI bleed was treated with 4 unit blood transfusion Protonix drip octreotide drip IV fluid patient will be discharged on oral Protonix follow-up with GI in 2 weeks (2) GI bleeding: Code(s): K92.2 - Gastrointestinal hemorrhage, unspecified Status: Resolved Assessment and Plan: Patient with a history of peptic ulcer disease with reports of hematemesis 4 days ago. sp 4 units of blood On Protonix (Gastroenterology) consulted recommendation appreciated. sp EGD Gi bleeding has stopped Follow-up with GI in 2 weeks (3) Cardiac arrest: Code(s): I46.9 - Cardiac arrest, cause unspecified Status: Resolved Assessment and Plan: Secondary to hemorrhagic shock. t (4) Acute respiratory failure: Code(s): J96.00 - Acute respiratory failure, unspecified whether with hypoxia or hypercapnia Status: Resolved Assessment and Plan: Patient intubated post arrest. Extubated doing well on room air (5) Metabolic acidosis: Code(s): E87.2 - Acidosis Status: Resolved Assessment and Plan: Patient is profoundly acidotic due to hypoperfusion and tissue hypoxemia given severe anemia and hemorrhagic shock resolved. (6) Alcohol abuse: Code(s): F10.10 - Alcohol abuse, uncomplicated Status: Acute Assessment and Plan: Patient reportedly had witnessed seizure activity post intubation, CT head is negative. pt is on ciwa protocol and has thiamine Probably related to shock no antiepileptic medication for now continue to monitor seizure precaution (7) Acute on chronic pancreatitis: Code(s): K85.90 - Acute pancreatitis without necrosis or infection, unspecified; K86.1 - Other chronic pancreatitis Status: Acute Assessment and Plan: Treated with IV hydration, (8) Abnormal abdominal CT scan: Code(s): R93.5 - Abnormal findings on diagnostic imaging of other abdominal regions, including retroperitoneum Status: Acute Assessment and Plan: In addition to acute on chronic pancreatitis there were also findings of subacute infarcts versus pyelonephritis in both kidneys (9) Elevated troponin: Code(s): R77.8 - Other specified abnormalities of plasma proteins Status: Acute Assessment and Plan: Borderline ST waves in all leads, no ST elevation. Follow-up with cardiology as outpatient most likely NSTEMI type 2 secondary to demand ischemia secondary to hemorrhagic shock (10) Transaminitis: Code(s): R74.01 - Elevation of levels of liver transaminase levels Status: Acute Assessment and Plan: Shock liver follow-up with GI in 2 weeks (11) Coagulopathy: Code(s): D68.9 - Coagulation defect, unspecified Status: Acute Assessment and Plan: Continue to monitor (12) Seizure-like activity: Code(s): R56.9 - Unspecified convulsions Status: Acute Assessment and Plan: As above patient may have had an alcohol withdrawal seizure in the past. CT head negative with no driving for 6 months (13) Thrombocytopenia: Code(s): D69.6 - Thrombocytopenia, unspecified Status: Acute Assessment and Plan: Most likely related to chronic alcoholism (14) Weakness: Code(s): R53.1 - Weakness Status: Acute Assessment and Plan: Both lower legs weak secondary to deconditioned state. Continue PT in hospital, pt does not want to go to a placement. (15) Leucocytosis: Code(s): D72.829 - Elevated white blood cell count, unspecified Status: Acute Assessment and Plan: Probable UTI patient will be discharged on oral antibiotics hemodynamically stable
[2020-09-23 10:00] VITALS: BP 129/76; PULSE 106; RESP 20; TEMP 36.8; O2SAT 99
[2020-09-23] MEDS: ACETAMINOPHEN 325 MG TABLET 650 MG PO (10:40)
[2020-09-23] MEDS: CEFDINIR 300 MG CAPSULE PO (10:40)
[2020-09-23 11:24] VITALS: O2SAT 99
[2020-09-23 12:25] LABS: Glucose Point of Care 172 (65-105)
--- NOTE | 2020-09-23 16:41 | WPDGIPROGNO ---
Progress Note: A&P Assessment and Plan (1) GI bleeding: Code(s): K92.2 - Gastrointestinal hemorrhage, unspecified Status: Resolved Assessment and Plan: resolved, had severe gastritis hb stable since blood transfusion he can be discharged with ppi bid follow-up office in few more weeks (2) Hemorrhagic shock: Code(s): R57.8 - Other shock Status: Acute Assessment and Plan: resolved (3) Alcohol abuse: Code(s): F10.10 - Alcohol abuse, uncomplicated Status: Acute (4) Cardiac arrest: Code(s): I46.9 - Cardiac arrest, cause unspecified Status: Resolved (5) Seizure-like activity: Code(s): R56.9 - Unspecified convulsions Status: Acute (6) Portal vein thrombosis: Code(s): I81 - Portal vein thrombosis Status: Acute Assessment and Plan: chronic finding no need of anticoagulation (also presented with hemorrhagic shock and severe anemia), alcohol abuse, non-compliance Subjective Date/time seen: 09/23/20 13:00 Interval history: eating ok (passed swallow test), no more bleeding Review of Systems Review of Systems: All systems reviewed & are unremarkable except as noted in HPI and below Exam Const: General: no acute distress Other: awake, alert, chronically ill appearing HENMT: General nose exam: Normal nares present Eyes: General: appearance normal, both eyes and all related structures Neck: Neck: supple Resp: Auscultation: diminished lung sounds Cardio: Rate: regular rate GI: Inspection: non-distended GI Palp: Yes Soft to palpation and No Firmness to palpation present (GI) Auscultation: normal bowel sounds Skin: General skin exam: no rashes or lesions noted Neuro: Speech: normal speech Extrem: General: normal to inspection Psych: Affect: No Hostile affect present Objective Data Vital Signs Vital Signs: Vital Signs - 24 hr 09/22/20 18:00 09/22/20 22:00 09/23/20 00:45 Temperature 97.6 F 97.6 F 98.5 F Pulse Rate 80 100 95 Respiratory Rate 18 20 20 Blood Pressure 130/82 148/80 H 134/77 Pulse Oximetry 100 98 100 09/23/20 06:00 09/23/20 10:00 09/23/20 11:24 Temperature 98.7 F 98.3 F Pulse Rate 97 106 H Respiratory Rate 20 20 Blood Pressure 148/78 H 129/76 Pulse Oximetry 98 99 99 Intake/Output Intake/Output: Intake & Output 09/20/20 09/21/20 09/22/20 09/23/20 23:59 23:59 23:59 23:59 Intake Total 984 638 1227 560 Output Total 300 350 150 Balance 300 430 860 560 Meds/Results Radiology Results: ITS Impressions Chest/Abdomen/Pelvis CTA 09/15/20 16:05 IMPRESSION: 1. No pulmonary embolus. 2. Mild pulmonary edema. 3. Acute and chronic pancreatitis. 4. Bilateral striated nephrograms with parenchymal volume loss, consistent with subacute infarcts versus pyelonephritis. 5. Ill-defined peripheral low-attenuation in the segment IVb of the liver, which may be infarct, hepatitis, or steatosis. 6. Mild gastrohepatic lymphadenopathy, likely reactive. Head CT 09/15/20 18:56 IMPRESSION: 1. Moderate nonspecific cerebral white matter disease, which likely represents chronic small vessel ischemic disease. Abdomen Ultrasound 09/16/20 09:43 IMPRESSION: 1. Serpiginous portal triad collateralization likely sequela from chronic prior portal vein thrombosis. 2. Abnormal bidirectional portal venous Doppler signal. Portal hypertension. 3. Hepatic steatosis. Abdomen X-Ray 09/16/20 15:02 IMPRESSION: 1. Feeding tube in position. 2. Scattered bibasilar atelectasis or developing infection. 3. Development of small right pleural effusion. Chest X-Ray 09/19/20 07:34 Impression: 1: Progression of diffuse bilateral airspace disease, most likely edema versus pneumonia. 2: Small pleural effusions. 3: Cardiomegaly. Modified Barium Swallow 09/20/20 10:57 IMPRESSION: 1: Normal swallowing function without aspiration or penetration. 2: Please refer to speech patholo
--- NOTE | 2020-09-23 16:55 | WPDNEURORHBP ---
Subjective Date/time seen: 09/23/20 16:55 Patient is more alert. Ataxia persists. Functional Status Ambulation Ability Ambulation Assistive Devices: None and Walker, Wheeled Transfers Ability Ability to Transfer In/Out of Chair: Minimum Assistance X 1 Exam Narrative: Exam Narrative: patient is more alert head is normocephalic. Eyes are bulging. Speech is clear with occasional clearing of throat. Coughing is noted. Heart rate and rhythm is regular. Lungs are coarse and distant. Abdomen is soft nontender. Transfers are at contact guard to standby assistance. Gait with a walker is at contact guard supervision. Gait without a walker with hand-held assistance is Min assist with the tendency to lean forward and shuffle. Patient is clearly safer with a walker. Objective Data Vital Signs Vital Signs: Vital Signs - 24 hr 09/22/20 18:00 09/22/20 22:00 09/23/20 00:45 Temperature 36.4 C 36.4 C 36.9 C Pulse Rate 80 100 95 Respiratory Rate 18 20 20 Blood Pressure 130/82 148/80 H 134/77 Pulse Oximetry 100 98 100 09/23/20 06:00 09/23/20 10:00 09/23/20 11:24 Temperature 37.1 C 36.8 C Pulse Rate 97 106 H Respiratory Rate 20 20 Blood Pressure 148/78 H 129/76 Pulse Oximetry 98 99 99 Intake/Output Intake/Output: Intake & Output 09/20/20 09/21/20 09/22/20 09/23/20 23:59 23:59 23:59 23:59 Intake Total 636 503 7368 560 Output Total 300 350 150 Balance 300 430 860 560 Meds/Results Radiology Results: ITS Impressions Chest/Abdomen/Pelvis CTA 09/15/20 16:05 IMPRESSION: 1. No pulmonary embolus. 2. Mild pulmonary edema. 3. Acute and chronic pancreatitis. 4. Bilateral striated nephrograms with parenchymal volume loss, consistent with subacute infarcts versus pyelonephritis. 5. Ill-defined peripheral low-attenuation in the segment IVb of the liver, which may be infarct, hepatitis, or steatosis. 6. Mild gastrohepatic lymphadenopathy, likely reactive. Head CT 09/15/20 18:56 IMPRESSION: 1. Moderate nonspecific cerebral white matter disease, which likely represents chronic small vessel ischemic disease. Abdomen Ultrasound 09/16/20 09:43 IMPRESSION: 1. Serpiginous portal triad collateralization likely sequela from chronic prior portal vein thrombosis. 2. Abnormal bidirectional portal venous Doppler signal. Portal hypertension. 3. Hepatic steatosis. Abdomen X-Ray 09/16/20 15:02 IMPRESSION: 1. Feeding tube in position. 2. Scattered bibasilar atelectasis or developing infection. 3. Development of small right pleural effusion. Chest X-Ray 09/19/20 07:34 Impression: 1: Progression of diffuse bilateral airspace disease, most likely edema versus pneumonia. 2: Small pleural effusions. 3: Cardiomegaly. Modified Barium Swallow 09/20/20 10:57 IMPRESSION: 1: Normal swallowing function without aspiration or penetration. 2: Please refer to speech pathologist report for additional detail. Labs Labs: Laboratory Results - last 24 hr 09/22/20 09/22/20 09/23/20 17:29 22:57 08:16 POC Capillary Glucose 160 H 133 H 117 H 09/23/20 12:13 POC Capillary Glucose 172 H Progress Note: A&P Assessment and Plan (1) Portal vein thrombosis: Code(s): I81 - Portal vein thrombosis Status: Acute (2) Leucocytosis: Code(s): D72.829 - Elevated white blood cell count, unspecified Status: Acute (3) Weakness: Code(s): R53.1 - Weakness Status: Acute (4) Thrombocytopenia: Code(s): D69.6 - Thrombocytopenia, unspecified Status: Acute (5) Gastric ulcer: Code(s): K25.9 - Gastric ulcer, unspecified as acute or chronic, without hemorrhage or perforation Status: Acute (6) Electrolyte abnormality: Code(s): E87.8 - Other disorders of electrolyte and fluid balance, not elsewhere classified Status: Acute (7) Severe anemia: Code(s): D64.9 - Anemia, unspecified Status: Acute (8) Sh
== END 2020-09-23 15:20 | DRG 208 ==
LOC: ANHED 14:27 → ANHICU 20:50 → ANH2MED 09-22 14:20 → ANHICU 09-24 14:25
PROVIDERS: Family Medicine; Internal Medicine; Internal Medicine Gastroenterology; Physician Assistant; Admitting Provider Family Medicine; Emergency Provider General Practice; Visit Provider Internal Medicine
PROC: 0DJ08ZZ Inspection of Upper Intestinal Tract, Via Natural or Artificial Opening Endoscopic (ICD-10-PCS; CPT 43235; principal; 2020-09-16 15:15)
DX: J96.01 Acute respiratory failure with hypoxia (principal); I46.9 Cardiac arrest, cause unspecified; K27.4 Chronic or unspecified peptic ulcer, site unspecified, with hemorrhage; R57.8 Other shock; K85.90 Acute pancreatitis without necrosis or infection, unspecified; I81 Portal vein thrombosis; K72.00 Acute and subacute hepatic failure without coma; E87.2 Acidosis; K86.1 Other chronic pancreatitis; D68.9 Coagulation defect, unspecified; D69.6 Thrombocytopenia, unspecified; Z20.822 Contact with and (suspected) exposure to COVID-19; K29.70 Gastritis, unspecified, without bleeding; K21.00 Gastro-esophageal reflux disease with esophagitis, without bleeding; K29.80 Duodenitis without bleeding; D50.0 Iron deficiency anemia secondary to blood loss (chronic); I50.9 Heart failure, unspecified; F10.10 Alcohol abuse, uncomplicated; E11.9 Type 2 diabetes mellitus without complications; R93.5 Abnormal findings on diagnostic imaging of other abdominal regions, including retroperitoneum; R77.8 Other specified abnormalities of plasma proteins; R74.01 Elevation of levels of liver transaminase levels; R56.9 Unspecified convulsions; E87.8 Other disorders of electrolyte and fluid balance, not elsewhere classified; D72.829 Elevated white blood cell count, unspecified; R53.1 Weakness; R27.0 Ataxia, unspecified; Z91.19 Patient's noncompliance with other medical treatment and regimen
CPT/HCPCS: 36415; 36430; 36600; 70450; 71045; 71275; 74177; 76705; 80048; 80053; 80074; 80076; 81001; 82140; 82375; 82550; 82805; 82948; 83050; 83605; 83690; 83735; 83880; 84443; 84484; 85014; 85018; 85025; 85027; 85055; 85380; 85384; 85610; 85730; 86850; 86900; 86901; 86920; 87040; 87086; 88305; 92526; 92610; 92611; 93005; 93306; 94003; 96361; 96374; 96375; 97110; 97116; 97161; 97166; 97530; 97535; 99285; A9270; C1751; C9113; C9803; J0171; J0692; J1120; J1815; J1940; J2060; J2250; J2354; J2704; J3010; J3370; J3411; J3430; J3475; J3480; J7030; J7050; J7060; J7070; P9016; P9017; Q9967; U0003; U0005

== ENCOUNTER 2020-12-16 20:34 | Observation (INO) | payer MEDICARE, MEDICAID, SELFPAY ==
[2020-12-16] VITALS (7 sets, daily range): BP systolic 132–153; BP diastolic 67–81; PULSE 73–95; RESP 16–23; TEMP 36.1–36.6; O2SAT 93–100; BMI 21.7
[2020-12-16 21:25] LABS: Basophils Percent Auto 0.5 % (0.2-1.2); Eosinophils Absolute Auto 0.1 K/mm3 (0-0.3); Eosinophils Percent Auto 0.8 % (0-4.4); Hematocrit 22.8 % (42.0-52.0); Immature Granulocyte Absolute 0.03 K/mm3 (0.00-0.031); Immature Granulocyte Percent A 0.4 % (0-0.5); Lymphocytes Percent Auto 14.7 % (18.3-44.2); Mean Corpuscular HGB Conc 28.5 g/dl (32-36); Mean Corpuscular Hemoglobin 23.2 pg (26-34); Mean Corpuscular Volume 81.4 fl (80-100); Mean Platelet Volume 9.3 fl (7.4-10.4); Monocytes Absolute Auto 0.9 K/mm3 (0.1-0.6); Monocytes Percent Auto 11.3 % (2.6-8.5); Neutrophils Absolute Auto 5.4 K/mm3 (1.3-6.7); Neutrophils Percent Auto 72.3 % (45.5-73.1); Platelet Count Result 225 k/mm3 (150-375); Red Cell Distribution Width 25.7 % (11.5-14.5); White Blood Count 7.5 K/mm3 (4.5-10.0)
[2020-12-16 21:36] LABS: Hemoglobin 6.5 g/dL (14.0-18.0)
[2020-12-16 21:37] LABS: Platelet Estimate Adequate (Adequate)
[2020-12-16 21:38] LABS: Hypochromasia 1+ (NORMAL); Ovalocytes 1+ (NORMAL)
[2020-12-16 21:44] LABS: Alanine Aminotransferase 9 U/L (4-50); Albumin Level 3.8 g/dL (3.5-5.1); Alkaline Phosphatase 119 U/L (38-126); Anion Gap 11 mmol/L (8-16); Aspartate Amino Transferase 34 U/L (17-59); Bilirubin,Total 0.9 mg/dL (0.2-1.3); Blood Urea Nitrogen 16 mg/dL (9-20); Calcium 8.2 mg/dL (8.4-10.2); Carbon Dioxide 26 mmol/L (22-30); Chloride 95 mmol/L (98-107); Estimated CRCL calculation 57 ml/min; Estimated Glomerular Filt Rate > 60; Glucose 112 mg/dL (65-110); Potassium 2.7 mmol/L (3.4-5.0); Sodium 132 mmol/L (137-145)
--- NOTE | 2020-12-16 22:50 | ED.GENADULT ---
HPI - General Adult General Chief complaint: Recheck/Abnormal Lab/Rx Stated complaint: dr gimenez - anemia Time Seen by Provider: 12/16/20 21:46 History of Present Illness HPI narrative: Patient is a 65-year-old gentleman who presents the emergency department chief complaint of abnormal labs. Patient has history of anemia and had a previous GI bleed that was complicated with a cardiac arrest. The patient states that his primary doctor ordered labs on him and called him this afternoon and told him his hemoglobin was very low and he should go to the emergency department. Patient reports he had a little bit of shortness of breath when he gets up and walks around. Patient denies abdominal pain denies black stools denies being on current blood thinners. Related Data Allergies Allergy/AdvReac Type Severity Reaction Status Date / Time No Known Allergies Allergy Unknown Verified 09/15/20 14:05 Review of Systems Review of Systems: A 10 system review of systems was completed on the patient and is negative except for what is stated in the HPI. Nursing and ancillary documentation was reviewed. [facility] Past Medical History Medical History Alcohol abuse Coffee ground emesis Gastric ulcer Gastroesophageal reflux disease History of tobacco use Pancreatitis (~04/2003) Peptic ulcer disease Portal vein thrombosis Severe anemia Shock liver Surgical History Surgical History History of chest tube placement History of esophagogastroduodenoscopy (~04/2003) EGD showed gastritis and edema of the duodenum with prominent veins in the gastric body though no true varices. History of resection of small bowel Related to peptic ulcer disease. Family History Family History Other Unknown family medical history Social History Social History Social History: The patient lives in [place] with his sister who is epileptic. They both help each other at the house. A brother who lived with them has recently and family members took turns caring for him before he passed. Patient admits to ongoing smoking of a pack per day. Patient admits to drinking up to a fifth to pint of various alcohol per day. He has a longstanding history of alcohol abuse, reportedly drinking 28 alcoholic beverages a week. Prior history of marijuana use. He has a brother who is his emergency contact. Spiritual care concerns: No Exam Narrative: GENERAL: Well-appearing, well-nourished, and in no acute distress. HEAD: Normocephalic, atraumatic. EYES: PERRLA and EOMI. ENT: Nares clear, no rhinorrhea or epistaxis. Mucous membranes moist. NECK: Supple. CHEST: Clear to auscultation. No respiratory distress. HEART: Regular rate and rhythm. No murmur heard. Normal peripheral pulses. ABDOMEN: Soft, nontender, nondistended, normal active bowel sounds. : The patient has guaiac negative stool EXTREMITIES: Normal range of motion. No edema. SKIN: Warm, dry, no rash. NEURO: No focal deficits. Alert and oriented x3. PSYCH: Normal mood and affect. Course Course Emergency Course: Due to the patient's prior history of GI bleeds and cardiac arrest secondary to GI bleed patient is currently guaiac negative the patient will be admitted for observation overnight, patient will receive potassium replacement and a unit of packed red blood cells. Vital Signs Vital signs: Vital Signs Temperature 36.1 C L 12/16/20 21:09 Pulse Rate 95 12/16/20 21:09 Respiratory Rate 16 12/16/20 21:09 Blood Pressure 138/72 12/16/20 21:09 Pulse Oximetry 100 12/16/20 21:09 Temperature 36.6 C 12/16/20 21:26 Pulse Rate 87 12/16/20 21:26 Respiratory Rate 18 12/16/20 21:26 Blood Pressure 139/67 12/16/20 21:26 Pulse Oximetry 9
[2020-12-16 23:05] LABS: Magnesium 1.1 mg/dL (1.6-2.3)
[2020-12-16] MEDS: SODIUM CHLORIDE 0.9% IV 250 ML 30 ML IV CONT (23:29)
[2020-12-17] VITALS (15 sets, daily range): BP systolic 132–159; BP diastolic 65–86; PULSE 66–91; RESP 16–18; TEMP 36.5–37.1; O2SAT 98–100; BMI 21.7
--- NOTE | 2020-12-17 00:01 | PC.NURSE ---
This patient, Gasper Correia, was admitted to Medical Room 348-01. Patient/family oriented to hospital policies and general routines including ID bracelet, bed and alarms, visiting hours, pain management, procedures, bathroom and other care routines, personal items, smoking policy, room service/diet, and visiting hours. Information on how to activate the Rapid Response Team has been discussed. Patient/Family are encouraged to report perceived risks to care and to ask questions if they do not understand what they are told or what they should do.
[2020-12-17] MEDS: MAGNESIUM SULF 2 GM/WATER 50ML 2 GM/50 ML BAG IVPB (01:31)
--- NOTE | 2020-12-17 02:47 | PM.IMHP ---
H&P: HPI History of Present Illness Date/Time: 12/17/20 02:47 Chief Complaint: low hemoglobin Narrative: This is a 65-year-old male with past medical history significant for alcohol dependence, peptic ulcer disease, patient presented to the emergency room after routinely performed lab work showed a hemoglobin of 6.5 his primary care physician asked him to come to the emergency room. UPON ARRIVAL TO THE EMERGENCY ROOM REPEAT LAB WORK WHICH REDEMONSTRATED A HEMOGLOBIN OF 6.5. patient denies any hematemesis but his had couple episodes of melena within the last week or so. patient was supposed to be on pantoprazole for peptic ulcer that was found earlier in September. patient denies any cough sputum production abdominal pain nausea vomiting diarrhea no bright red blood per rectum however he has been feeling increasingly fatigued with low stamina and shortness of breath with minimal exertion. Review of Systems Review of Systems: abnormal lab work Constitutional: Constitutional: Denies chills, Denies fever(s), Reports lethargy, Denies malaise and Denies weakness Eyes: Eyes: Denies change in vision ENT: Denies dysphagia and Denies odynophagia Cardiovascular: Cardiovascular: Denies chest pain, Denies irregular heart rhythm, Denies lightheadedness, Denies radiating jaw, neck or arm pain, Denies palpitations and Reports dyspnea Respiratory: Respiratory: Denies cough Gastrointestinal: Gastrointestinal: Denies abdominal pain, Reports melena, Denies diarrhea, Denies nausea and Denies vomiting Genitourinary: Genitourinary: Reports no additional male genitourinary complaints Musculoskeletal: Musculoskeletal: Reports no additional musculoskeletal complaints Integumentary/Breasts: Skin/Breast: Reports system reviewed and no additional complaints, except as docu Neurologic: Reports system reviewed and no additional complaints, except as documented Psychiatric: Psychiatric: Reports no additional psychiatric complaints Endocrine: Endocrine: Reports no additional endocrine complaints Hematologic/Lymphatic: Hematologic/Lymphatic: Reports no additional hematologic/lymphatic complaints Allergic/Immunologic: Allergic/Immunologic: Reports no additional allergic/immunologic complaints PENDING SALE TO [facility] Past Medical History Medical History Alcohol abuse Coffee ground emesis Gastric ulcer Gastroesophageal reflux disease History of tobacco use Pancreatitis (~04/2003) Peptic ulcer disease Portal vein thrombosis Severe anemia Shock liver Surgical History Surgical History History of chest tube placement History of esophagogastroduodenoscopy (~04/2003) EGD showed gastritis and edema of the duodenum with prominent veins in the gastric body though no true varices. History of resection of small bowel Related to peptic ulcer disease. Family History Family History Other Unknown family medical history Social History Social History Social History: The patient lives in [place] with his sister who is epileptic. They both help each other at the house. A brother who lived with them has recently and family members took turns caring for him before he passed. Patient admits to ongoing smoking of a pack per day. Patient admits to drinking up to a fifth to pint of various alcohol per day. He has a longstanding history of alcohol abuse, reportedly drinking 28 alcoholic beverages a week. Prior history of marijuana use. He has a brother who is his emergency contact. Smoking packs per day: 0.5 Smoking cigarettes per day: 10.0 Years smoked: 48 Smoking pack-years: 24.00 Smoking status: Heavy tobacco smoker Tobacco type: cigarettes Second hand tobacco smoke exposure: Yes Alcohol intake: former Drinks per
[2020-12-17] MEDS: SODIUM CHLORIDE 0.9% IV 250 ML 30 ML (05:25)
[2020-12-17] MEDS: THIAMINE HCL INJ 100 MG, FOLIC ACID INJ 1 MG, MULTIVITAMINS-12 INJ VIAL 1 5 ML, MULTIVI... IV CONT (06:08)
[2020-12-17 07:17] LABS: Basophils Percent Auto 0.7 % (0.2-1.2); Eosinophils Absolute Auto 0.1 K/mm3 (0-0.3); Hematocrit 26.6 % (42.0-52.0); Hemoglobin 7.7 g/dL (14.0-18.0); Immature Granulocyte Absolute 0.02 K/mm3 (0.00-0.031); Immature Granulocyte Percent A 0.3 % (0-0.5); Lymphocytes Absolute Auto 0.96 K/mm3 (0.9-3.2); Lymphocytes Percent Auto 16.4 % (18.3-44.2); Mean Corpuscular HGB Conc 28.9 g/dl (32-36); Mean Corpuscular Volume 82.9 fl (80-100); Mean Platelet Volume 9.9 fl (7.4-10.4); Monocytes Absolute Auto 0.7 K/mm3 (0.1-0.6); Monocytes Percent Auto 12.6 % (2.6-8.5); Platelet Count Result 213 k/mm3 (150-375); Red Blood Count 3.21 M/mm3 (4.6-6.20); Red Cell Distribution Width 24.1 % (11.5-14.5); White Blood Count 5.9 K/mm3 (4.5-10.0)
[2020-12-17 07:26] LABS: Anion Gap 11 mmol/L (8-16); Blood Urea Nitrogen 12 mg/dL (9-20); Calcium 8.1 mg/dL (8.4-10.2); Carbon Dioxide 22 mmol/L (22-30); Chloride 99 mmol/L (98-107); Estimated CRCL calculation 82 ml/min; Estimated Glomerular Filt Rate > 60; Glucose 111 mg/dL (65-110); Potassium 3.2 mmol/L (3.4-5.0); Sodium 132 mmol/L (137-145)
[2020-12-17 08:22] LABS: Platelet Estimate Adequate (Adequate)
[2020-12-17 08:23] LABS: Anisocytosis 1+ (NORMAL); Hypochromasia 1+ (NORMAL); Poikilocytosis 1+ (NORMAL)
[2020-12-17 08:38] LABS: Glucose Point of Care 92 mg/dl (65-105)
[2020-12-17] MEDS: THIAMINE HCL 100 MG TABLET PO (09:12)
[2020-12-17] MEDS: PANTOPRAZOLE SODIUM IV 40 MG VIAL IV PUSH (09:12)
[2020-12-17] MEDS: FOLIC ACID 1 MG TABLET PO (09:12)
[2020-12-17 10:14] LABS: Magnesium 1.7 mg/dL (1.6-2.3)
[2020-12-17] MEDS: POTASSIUM CHLORIDE 20 MEQ TABLET PO ×2 (11:20→13:00)
--- NOTE | 2020-12-17 11:43 | PM.IMPN ---
Progress Note: A&P Assessment and Plan (1) Acute anemia: Code(s): D64.9 - Anemia, unspecified Status: Acute Assessment and Plan: Had routine labs as an outpatient, hemoglobin noted to be low at 6.5. He was relatively asymptomatic. Transfused 1 unit pRBC this a.m. Hemoglobin 7.7 following transfusion Repeat H&H this afternoon to ensure remaining stable No evidence of ongoing blood loss. Vital signs are stable. Transfuse as needed with goal hemoglobin 7.0 or greater (2) GI bleeding: Code(s): K92.2 - Gastrointestinal hemorrhage, unspecified Status: Resolved Assessment and Plan: Concern for GI bleed given history of recent gastritis Most likely slow blood loss related to his recent gastritis as he has been asymptomatic and hemodynamically stable Consult to GI appreciated; consider EGD and colonoscopy Continue IV Protonix Fecal occult blood test pending. Await results. (3) Gastritis: Code(s): K29.70 - Gastritis, unspecified, without bleeding Status: Acute Assessment and Plan: EGD September 2020 with severe patchy gastritis with ulcerative changes likely source of bleeding/anemia. See above (4) Acute hypokalemia: Code(s): E87.6 - Hypokalemia Status: Acute Assessment and Plan: Etiology for this unclear at this time. Reported he had diarrhea about a week that has resolved. Possibly poor p.o. intake. Potassium 2.7 at presentation. Improved with supplementation. Potassium 3.2 this morning. Administer 40 mEq KCl Magnesium also low and has been supplemented. 1.7 this morning. Will give an additional 1 g IV mag sulfate in addition to mag given with his fluids. Monitor labs. (5) Alcohol abuse: Code(s): F10.10 - Alcohol abuse, uncomplicated Status: Acute Assessment and Plan: Reports last drink was 2 weeks ago Do not anticipate any issues with alcohol withdrawal given timing since last drink, however will initiate CIWA protocol for monitoring. Ativan prn CIWA >8. Thiamine and folic acid Continue to encourage alcohol cessation (6) Tobacco abuse: Code(s): Z72.0 - Tobacco use Status: Acute Assessment and Plan: Smokes 1/2 ppd. Declines need for nicotine patch at this time. Continue to encourage smoking cessation Subjective Date/time seen: 12/17/20 11:43 Interval history: date of service: 12/17/2020 Gasper Correia is 65-year-old male with a history of gastritis, alcohol abuse, and tobacco abuse who is seen in follow-up for anemia, concerning for GI bleeding. He is feeling well today. He has no real complaints and feels in his usual state of health. He has been having regular bowel movements and denies melena or hematochezia. He denies abdominal pain. No epigastric pain. No GERD symptoms. Denies shortness of breath, dizziness, lightheadedness, chest pain, or palpitations. He is eating well. No urinary symptoms. Reports that his last drink was 2 weeks ago. Denies any alcohol withdrawal symptoms. Denies cigarette cravings. No agitation or restlessness. He has no other complaints at this time and is in good spirits. Review of Systems Review of Systems: All systems reviewed & are unremarkable except as noted in HPI and below Exam Narrative: Mr. Correia is a 65-year-old male who is lying supine in bed. He appears comfortable and is in NARD. Neuro: awake, alert and oriented x4, speech clear, no focal neuro deficits noted HEENMT: normocephalic, atraumatic, EOMI, sclerae slightly icteric, moist oral mucosa Neck: supple, no lymphadenopathy Respiratory: clear to auscultation bilaterally, nonlabored breathing Cardio: regular rate, regular rhythm with S1-S2 Abdomen: nondistended, normoactive bowel sounds, soft, nontender to palpation, no epigastric tenderness Extremities: no edema, erythema, cyanosis, clubbing, or tenderness to palpation Skin: no rashes o
[2020-12-17 12:22] LABS: Hematocrit 25.5 % (42.0-52.0); Hemoglobin 7.6 g/dL (14.0-18.0)
[2020-12-17 13:09] LABS: Glucose Point of Care 161 mg/dl (65-105)
[2020-12-17] MEDS: MAGNESIUM SULF 1 GM/D5W 100 ML 1 GM/100 ML BAG IVPB (13:35)
[2020-12-17 17:14] LABS: Glucose Point of Care 119 mg/dl (65-105)
[2020-12-17] MEDS: BISACODYL 5 MG TABLET EC 20 MG PO (17:17)
[2020-12-17] MEDS: polyethylene glycoL 3350 238 GM BOTTLE PO (17:17)
[2020-12-17 20:48] LABS: Hemoglobin 8.4 g/dL (14.0-18.0)
[2020-12-17 20:52] LABS: Glucose Point of Care 81 mg/dl (65-105)
[2020-12-18 03:57] LABS: IFOB Positive Control Positive; Immunochemical Fecal Occult Bl Negative (N)
[2020-12-18] MEDS: MAGNESIUM CITRATE 300 ML BTL PO (04:15)
[2020-12-18 05:45] VITALS: BP 157/83; PULSE 77; RESP 16; TEMP 35.9; O2SAT 100
[2020-12-18 05:56] LABS: Hematocrit 28.1 % (42.0-52.0); Hemoglobin 8.1 g/dL (14.0-18.0)
[2020-12-18 06:11] LABS: Anion Gap 7 mmol/L (8-16); Blood Urea Nitrogen 3 mg/dL (9-20); Calcium 9.1 mg/dL (8.4-10.2); Carbon Dioxide 21 mmol/L (22-30); Chloride 104 mmol/L (98-107); Estimated CRCL calculation 95 ml/min; Estimated Glomerular Filt Rate > 60; Glucose 95 mg/dL (65-110); Magnesium 1.8 mg/dL (1.6-2.3); Potassium 3.4 mmol/L (3.4-5.0); Sodium 132 mmol/L (137-145)
[2020-12-18 08:15] LABS: Glucose Point of Care 93 mg/dl (65-105)
[2020-12-18] MEDS: PANTOPRAZOLE SODIUM IV 40 MG VIAL IV PUSH (08:27)
[2020-12-18 12:21] LABS: Glucose Point of Care 91 mg/dl (65-105)
--- NOTE | 2020-12-18 13:06 | WPDANESEPPF ---
Anes - Initial Pre Proc Eval Procedure: Operation Date: 12/18/20 14:45 Proposed Procedures p Esophagogastroduodenoscopy & Colonoscopy - Vahe Mac MD <Tj Cantu MD - Last Filed: 12/28/20 06:44> Date/Time: 12/18/20 13:06 <Tj Cantu MD - Last Filed: 12/28/20 06:44> Surgeon: Sury Newby PA-C <Tj Cantu MD - Last Filed: 12/28/20 06:44> Pre Op Diagnosis: anemia, hypokalemia <Tj Cantu MD - Last Filed: 12/28/20 06:44> Patient Data Age: 65 Gender: M Height: 1.73 m Weight: 65 kg <Tj Cantu MD - Last Filed: 12/28/20 06:44> Last Vital Signs Temp 35.9 C L 12/18/20 05:45 Pulse 77 12/18/20 05:45 Resp 16 12/18/20 05:45 BP 157/83 H 12/18/20 05:45 Pulse Ox 100 12/18/20 05:45 <Tj Cantu MD - Last Filed: 12/28/20 06:44> Allergies Allergy/AdvReac Type Severity Reaction Status Date / Time No Known Allergies Allergy Unknown Verified 12/18/20 14:19 <Tj Cantu MD - Last Filed: 12/28/20 06:44> Home Medications Medication Instructions Recorded Confirmed Type folic acid 1 mg PO QAM #30 tablet 09/23/20 12/17/20 Rx glipizide 5 mg PO DAILY #30 tablet 09/23/20 12/17/20 Rx pantoprazole 40 mg PO QAM #30 tablet 09/23/20 12/17/20 Rx thiamine HCl (vitamin B1) [Vitamin 100 mg PO QAM #30 tablet 09/23/20 12/17/20 Rx B-1] <Tj Cantu MD - Last Filed: 12/28/20 06:44> Laboratory Tests 12/17/20 12/17/20 12/17/20 13:04 15:36 17:12 Hgb Hct Sodium Potassium Chloride Carbon Dioxide Anion Gap BUN Creatinine Estim Creat Clear Calc Estimated GFR Glucose POC Capillary Glucose 161 mg/dl H mg/dl 119 mg/dl H mg/dl (65-105) (65-105) Calcium Magnesium Stl Occult Blood (IFOB) Negative (N) 12/17/20 12/17/20 12/18/20 20:32 20:40 05:33 Hgb 8.4 g/dL L g/dL 8.1 g/dL L g/dL (14.0-18.0) (14.0-18.0) Hct 29.0 % L % 28.1 % L % (42.0-52.0) (42.0-52.0) Sodium Potassium Chloride Carbon Dioxide Anion Gap BUN Creatinine Estim Creat Clear Calc Estimated GFR Glucose POC Capillary Glucose 81 mg/dl mg/dl (65-105) Calcium Magnesium Stl Occult Blood (IFOB) 12/18/20 12/18/20 12/18/20 05:33 08:12 12:17 Hgb Hct Sodium 132 mmol/L L mmol/L (137-145) Potassium 3.4 mmol/L mmol/L (3.4-5.0) Chloride 104 mmol/L mmol/L (98-107) Carbon Dioxide 21 mmol/L L mmol/L (22-30) Anion Gap 7 mmol/L L mmol/L (8-16) BUN 3 mg/dL L D mg/dL (9-20) Creatinine 0.60 mg/dL L mg/dL (0.7-1.3) Estim Creat Clear Calc 95 ml/min ml/min Estimated GFR > 60 (59 - ) Glucose 95 mg/dL mg/dL (65-110) POC Capillary Glucose 93 mg/dl mg/dl 91 mg/dl mg/dl (65-105) (65-105) Calcium 9.1 mg/dL mg/dL (8.4-10.2) Magnesium 1.8 mg/dL mg/dL (1.6-2.3) Stl Occult Blood (IFOB) <Tj Cantu MD - Last Filed: 12/28/20 06:44> Other Studies: Summary 1. Complete two-dimensional, color flow and Doppler transthoracic echocardiogram is performed. 2. Left ventricular chamber dimension is normal. 3. Left ventricular systolic function is normal, estimated at 60-65%. 4. Left ventricular septal wall motion is abnormal with septal motion related to bundle branch block. 5. The left ventricular diastolic function is abnormal. 6. E/e' 14 is mildly elevated. 7. Left atrial chamber dimension is mildly enlarged. 8. Right atrial chamber dimension is mildly enlarged.
--- NOTE | 2020-12-18 14:08 | WPDGICN ---
Assessment and Plan Assessment and plan (1) Acute on chronic blood loss anemia: Code(s): D62 - Acute posthemorrhagic anemia Status: Acute Assessment and Plan: we are going to proceed with egd (he had PUD last time- not taking ppi) and also colonoscopy since last one more than 10 years ago more recommendations after scopes (2) GI bleeding: Code(s): K92.2 - Gastrointestinal hemorrhage, unspecified Status: Resolved Assessment and Plan: trend h/h and continue with protonix (3) Alcohol abuse: Code(s): F10.10 - Alcohol abuse, uncomplicated Status: Acute Assessment and Plan: says that abstinent for 2 weeks (4) Tobacco abuse: Code(s): Z72.0 - Tobacco use Status: Acute Assessment and Plan: quit smoking GI Consult Note Consult date/time: 12/18/20 14:08 Reason for consult: acute on chronic blood loss anemia HPI: Gasper Correia is a 65 year old male who I met during recent hospitalization earlier this year after he had respiratory distress, intubated and melena. EGD found to have duodenal ulcers with severe gastritis. He is an alcoholic with last time drinking about 2 week ago and he has not been using his PPI. He went to see his PCP recently and had lab work that showed a hemoglobin of 6.5 therefore told to come to ER. He says that had couple episodes of melena within the last week or so. No nausea or hematemesis, no BRBPR. Last colonoscopy 10-12 years ago. Review of Systems Constitutional: Constitutional: Reports fatigue Eyes: Eyes: Denies blurry vision ENT: Reports Normal hearing present Cardiovascular: Cardiovascular: Denies chest pain Respiratory: Respiratory: Denies cough Gastrointestinal: Gastrointestinal: Denies nausea and Denies vomiting Genitourinary: Genitourinary: Denies dysuria Musculoskeletal: Musculoskeletal: Denies neck pain Integumentary/Breasts: Skin/Breast: Denies dry skin Neurologic: Denies headache(s) Psychiatric: Psychiatric: Denies behavioral changes [facility] Past Medical History Medical History (Updated 12/18/20 @ 17:49 by Vahe Mac MD) Acute on chronic blood loss anemia Acute on chronic pancreatitis Alcohol abuse Cardiac arrest CHF (congestive heart failure) Coagulopathy Coffee ground emesis Gastric ulcer Gastritis Gastroesophageal reflux disease Hepatic encephalopathy History of tobacco use Pancreatitis (~04/2003) Peptic ulcer disease Portal vein thrombosis Severe anemia Shock liver Thrombocytopenia Tobacco abuse Transaminitis Surgical History Surgical History History of chest tube placement History of esophagogastroduodenoscopy (~04/2003) EGD showed gastritis and edema of the duodenum with prominent veins in the gastric body though no true varices. History of resection of small bowel Related to peptic ulcer disease. Family History Family History Other Unknown family medical history Social History Social History Social History: The patient lives in [place] with his sister who is epileptic. They both help each other at the house. A brother who lived with them has recently and family members took turns caring for him before he passed. Patient admits to ongoing smoking of a pack per day. Patient admits to drinking up to a fifth to pint of various alcohol per day. He has a longstanding history of alcohol abuse, reportedly drinking 28 alcoholic beverages a week. Prior history of marijuana use. He has a brother who is his emergency contact. Smoking packs per day: 0.5 Smoking cigarettes per day: 10.0 Years smoked: 48 Smoking pack-years: 24.00 Smoking status: Heavy tobacco smoker Tobacco type: cigarettes Second hand tobacco smoke exposure: Yes Alcohol intake: former Drinks per week: 35 Subs
[2020-12-18 14:24] VITALS: BP 172/80; PULSE 74; RESP 18; TEMP 36.1; O2SAT 99
[2020-12-18] MEDS: LACTATED RINGERS 1,000 ML 150 ML IV CONT (14:29)
[2020-12-18] MEDS: BENZOCAINE (*SP) 60 ML SPRAY CAN (HURRICAINE) 1 SPRAY MUCOUS MEM (14:59)
[2020-12-18 15:41] VITALS: BP 93/49; PULSE 66; RESP 17; O2SAT 100
[2020-12-18 15:51] VITALS: BP 124/69; PULSE 84; RESP 22; O2SAT 94
[2020-12-18 16:01] VITALS: BP 138/84; PULSE 80; RESP 21; O2SAT 100
[2020-12-18 16:40] VITALS: BP 167/86; PULSE 86; RESP 18; TEMP 36.2; O2SAT 100
--- NOTE | 2020-12-18 16:56 | PM.DS ---
DS: Admitting Diagnosis Admitting Diagnosis anemia DS: Discharge Diagnosis Discharge Diagnosis (1) Acute anemia: Code(s): D64.9 - Anemia, unspecified Status: Acute Assessment and Plan: Had routine labs as an outpatient, hemoglobin noted to be low at 6.5. He was relatively asymptomatic. Transfused 1 unit pRBC on 12/17/2020. Hemoglobin improved following and remained stable at baseline Repeat H&H in 1 week Source of anemia felt to be gastric AVM as described below. (2) GI bleeding: Code(s): K92.2 - Gastrointestinal hemorrhage, unspecified Status: Resolved Assessment and Plan: Concern for GI bleed given history of recent gastritis and he had not been taking PPI. he was seen in consultation by Gastroenterology. Stool occult blood test negative. Underwent EGD and colonoscopy. Colonoscopy with few polyps and internal hemorrhoids with recommendations for repeat colonoscopy in 5 years. EGD showed multiple AVMs in the stomach that were not actively bleeding but likely the source of anemia. Lesions were cauterized. Continue daily Protonix. Follow-up with GI as an outpatient as needed. (3) Gastric AVM: Code(s): K31.819 - Angiodysplasia of stomach and duodenum without bleeding Status: Acute Assessment and Plan: See above. (4) Acute hypokalemia: Code(s): E87.6 - Hypokalemia Status: Acute Assessment and Plan: Potassium 2.7 at presentation and improved with supplementation. Magnesium was also supplemented. Continue with regular diet. (5) Alcohol abuse: Code(s): F10.10 - Alcohol abuse, uncomplicated Status: Acute Assessment and Plan: Reports last drink was 2 weeks ago. No Alcohol withdrawal symptoms. CIWA score is 0 throughout admission. Continue thiamine and folic acid. Encouraged continued avoidance of alcohol. (6) Tobacco abuse: Code(s): Z72.0 - Tobacco use Status: Acute Assessment and Plan: Smokes 1/2 ppd. Declined need for nicotine patch during hospital stay. He was educated on smoking cessation and verbalized understanding. He does not intend to quit smoking at this time. DS: Summary Hospital Course Hospital Course: date of admission: 12/16/2020 date of discharge: 12/18/2020 Gasper Correia is 65-year-old male with a history of gastritis, alcohol abuse, and tobacco abuse who presented to the emergency department on 12/16/2020 at the instruction of his primary care provider due to low hemoglobin which was noted on routine labs. He did complain of some dyspnea on exertion but had no other complaints. upon presentation to the emergency department, his vital signs were stable, he is afebrile, hemoglobin 6.5, hematocrit 22.8, sodium 132, potassium 2.7, and additional electrolytes stable. he was admitted to the hospitalist service for further evaluation and management and seen in consultation by Gastroenterology. Please see above for further details. He underwent EGD and colonoscopy which did demonstrate evidence of AVM on EGD which was likely source of bleeding. This was cauterized and he had no evidence of ongoing blood loss. He was feeling in his usual state of health and was very eager for discharge home. Given his overall improvement, he was determined to no longer require inpatient care and was felt to be stable for discharge. We discussed worrisome signs and symptoms for which returning was educated on his medications. He will continue with daily Protonix and follow-up with his PCP for further monitoring. Repeat H&H in 1 week. He was discharged in hemodynamically stable condition 12/18/2020. Status at Discharge Functional status at discharge: independent ambulation Overall status at discharge: patient is back to baseline Time Spent with Patient Time attestation: Total time spent providing and/or coordinating discharge services: 45 minutes Time spent: Greater than 30 minut
[2020-12-18 17:18] LABS: Glucose Point of Care 80 mg/dl (65-105)
== END 2020-12-18 18:15 | disposition home or self-care (01) ==
LOC: ANHED 22:53 → ANH3MED 23:51
PROVIDERS: Family Medicine; Internal Medicine Gastroenterology; Physician Assistant; Admitting Provider Internal Medicine; Emergency Provider Emergency Medicine; PCP Family Medicine; Visit Provider Internal Medicine
PROC: 0DJ08ZZ Inspection of Upper Intestinal Tract, Via Natural or Artificial Opening Endoscopic (ICD-10-PCS; CPT 43235; principal; 2020-12-18 14:45)
DX: D62 Acute posthemorrhagic anemia (principal); K92.2 Gastrointestinal hemorrhage, unspecified; K31.819 Angiodysplasia of stomach and duodenum without bleeding; D12.0 Benign neoplasm of cecum; D12.4 Benign neoplasm of descending colon; K64.8 Other hemorrhoids; E87.6 Hypokalemia; F10.10 Alcohol abuse, uncomplicated; F17.210 Nicotine dependence, cigarettes, uncomplicated
CPT/HCPCS: 43270; 45385; 36415; 36430; 80048; 80053; 82274; 82948; 83735; 85014; 85018; 85025; 86850; 86900; 86901; 86920; 88305; 96361; 96365; 96366; 96367; 96368; 96375; 96376; 99285; A9270; C9113; G0378; J2704; J3411; J3475; J3480; J7030; J7050; J7060; J7120; P9016

== ENCOUNTER 2022-11-13 20:10 | Inpatient (IN) | payer MEDICARE, MEDICAID, SELFPAY ==
[2022-11-13] VITALS (20 sets, daily range): BP systolic 117–137; BP diastolic 62–84; PULSE 96–108; RESP 12–27; TEMP 36.7–37.2; O2SAT 93–99
--- NOTE | ~2022-11-13 | XR_ITS ---
Portable chest x-ray Comparison: 09/19/2020 Clinical History: Dizziness, recent falls Findings: COPD pattern of the lungs is present. No consolidation or pleural effusion. No pneumothora x evident. Bilateral nipple shadows noted. Cardiomediastinal silhouette is stable. Bones and soft t issues are unremarkable. Impression: COPD. Reviewed, dictated and finalized at location . Impression: COPD.
--- NOTE | ~2022-11-13 | XR_ITS ---
Right wrist Technique: PA, oblique, lateral, and ulnar deviation views were obtained. Clinical History: Pain Findings: No acute fracture or dislocation is seen. There is moderate degenerative change of the mid carpal articulations. Soft tissues are unremarkable. Impression: Moderate degenerative change of the mid carpal articulations. No acute fracture or dislocation evident. Reviewed, dictated and finalized at location . Impression: Moderate degenerative change of the mid carpal articulations. No acute fracture or dislocation evident.
--- NOTE | ~2022-11-13 | XR_ITS ---
EXAMINATION: XR hand RT min 3V DATE: 11/13/2022 21:12 INDICATION: Pain and swelling at the posterior right hand post fall TECHNIQUE: Posteroanterior, oblique and lateral views of the right hand were obtained. COMPARISON: None. FINDINGS: Diffuse osteopenia. Bone alignment is normal. No fracture. Polyarticular osteoarthritis, severe at th e lunocapitate articulation of the midcarpal joint, moderate severity at the first interphalangeal, s econd and third distal interphalangeal and third proximal interphalangeal joints and mild at the dist al radioulnar, triscaphe, first carpometacarpal, first-third metacarpophalangeal and at the remaining interphalangeal joints. Juxta articular erosion with thin sclerotic margins and overhanging edges at the radial head of the second middle phalanx suggestive of gout. There is soft tissue swelling dorsa l to the carpal and metacarpal region of the hand. Couple subtle calcifications both the midcarpal niesha int which does not appear to represent fracture fragments which are most likely either dystrophic omar cifications or degenerative loose bodies. IMPRESSION: 1. No fracture although sensitivity for nondisplaced fractures mildly decreased by diffuse osteopenia . 2. Polyarticular osteoarthritis, severe at the midcarpal joint and moderate at several of the interph alangeal joints. 3. Juxta articular erosion at the head of the second middle phalanx with appearance suggestive of gou t. Reviewed, dictated and finalized at location A. IMPRESSION: 1. No fracture although sensitivity for nondisplaced fractures mildly decreased by diffuse osteopenia. 2. Polyarticular osteoarthritis, severe at the midcarpal joint and moderate at several of the interphalangeal joints. 3. Juxta articular erosion at the head of the second middle phalanx with appear ance suggestive of gout.
--- NOTE | 2022-11-13 20:25 | ECG_ITS ---
Measurements Intervals Tangent Rate: 101 P: 79 OK: 159 QRS: -38 QRSD: 99 T: 17 QT: 352 QTc: 458 Interpretive Statements SINUS TACHYCARDIA LEFT AXIS DEVIATION BORDERLINE T WAVE ABNORMALITY- ANTEROLAT/INF LEADS BORDERLINE ECG COMPARED TO ECG 09/21/2020 01:16:09 T WAVE ABNORMALITY IMPROVED Electronically Signed On 11-13-2022 21:32:42 CDT by Romulo Carrero D.O.
[2022-11-13 20:50] LABS: Basophils Percent Auto 0.3 % (0.2-1.2); Immature Granulocyte Absolute 0.09 K/mm3 (0.00-0.031); Immature Granulocyte Percent A 0.6 % (0-0.5); Lymphocytes Absolute Auto 0.74 K/mm3 (0.9-3.2); Lymphocytes Percent Auto 5.1 % (18.3-44.2); Mean Corpuscular HGB Conc 30.6 g/dl (32-36); Mean Corpuscular Hemoglobin 26.7 pg (26-34); Mean Corpuscular Volume 87.3 fl (80-100); Mean Platelet Volume 9.9 fl (7.4-10.4); Monocytes Absolute Auto 2.3 K/mm3 (0.1-0.6); Monocytes Percent Auto 16.1 % (2.6-8.5); Neutrophils Absolute Auto 11.3 K/mm3 (1.3-6.7); Neutrophils Percent Auto 77.9 % (45.5-73.1); Nucleated Red Blood Cells Perc 0.2 % (0.0-0.2); Platelet Count Result 439 k/mm3 (150-375); Red Blood Count 2.21 M/mm3 (4.6-6.20); Red Cell Distribution Width 27.9 % (11.5-14.5); White Blood Count 14.5 K/mm3 (4.5-10.0)
[2022-11-13 21:00] LABS: Alanine Aminotransferase 27 U/L (6-50); Albumin Level 2.9 g/dL (3.5-5.1); Alkaline Phosphatase 177 U/L (38-126); Anion Gap 3 mmol/L (8-16); Aspartate Amino Transferase 40 U/L (17-59); Bilirubin,Total 1.1 mg/dL (0.2-1.3); Blood Urea Nitrogen 14 mg/dL (9-20); Calcium 8.1 mg/dL (8.4-10.2); Carbon Dioxide 29 mmol/L (22-30); Chloride 99 mmol/L (98-107); Estimated CRCL calculation 40 ml/min; Estimated Glomerular Filt Rate > 60; Glucose 127 mg/dL (65-110); Potassium 3.5 mmol/L (3.4-5.0); Sodium 131 mmol/L (137-145)
[2022-11-13 21:13] LABS: Hematocrit 19.3 % (42.0-52.0); Hemoglobin 5.9 g/dL (14.0-18.0)
[2022-11-13 21:15] LABS: Anisocytosis 1+ (NORMAL); Hypochromasia 2+ (NORMAL); Platelet Estimate Adequate (Adequate); Poikilocytosis 1+ (NORMAL); Schistocytes None Seen (NORMAL); Target Cells 1+ (NORMAL)
--- NOTE | 2022-11-13 21:16 | ED.DIZZY ---
HPI - Dizziness General Chief Complaint: Dizziness Stated Complaint: dizziness, fall Time Seen by Provider: 11/13/22 21:16 Source: patient and family Limitations: no limitations History of Present Illness HPI Narrative: 67 years old -[place] male lives with his sister, been [place] for the last 4 days, plus having diarrhea unknown number for the last 2 days, of yellow stool. Patient had a fall 1 week ago and 4 days ago, complaining of right wrist pain. Denies head injury. Patient is full code, denies antiplatelet or anticoagulant medication, history of GERD and peptic ulcer disease and alcoholism. Last alcohol intake was 2 weeks ago. Related Data Allergies Allergy/AdvReac Type Severity Reaction Status Date / Time No Known Allergies Allergy Unknown Verified 12/18/20 14:19 Review of Systems Review of Systems: All systems reviewed & are unremarkable except as noted in HPI and below PMFSH Past Medical History Medical History Acute on chronic blood loss anemia Acute on chronic pancreatitis Alcohol abuse Cardiac arrest CHF (congestive heart failure) Coagulopathy Coffee ground emesis Gastric ulcer Gastritis Gastroesophageal reflux disease Hepatic encephalopathy History of tobacco use Pancreatitis (~04/2003) Peptic ulcer disease Portal vein thrombosis Severe anemia Shock liver Thrombocytopenia Tobacco abuse Transaminitis Surgical History Surgical History History of chest tube placement History of esophagogastroduodenoscopy (~04/2003) EGD showed gastritis and edema of the duodenum with prominent veins in the gastric body though no true varices. History of resection of small bowel Related to peptic ulcer disease. Family History Family History Other Unknown family medical history Social History Social History Social History: The patient lives in [place] with his sister who is epileptic. They both help each other at the house. A brother who lived with them has recently and family members took turns caring for him before he passed. Patient admits to ongoing smoking of a pack per day. Patient admits to drinking up to a fifth to pint of various alcohol per day. He has a longstanding history of alcohol abuse, reportedly drinking 28 alcoholic beverages a week. Prior history of marijuana use. He has a brother who is his emergency contact. Smoking packs per day: 0.5 Smoking cigarettes per day: 10.0 Years smoked: 48 Smoking pack-years: 24.00 Smoking status: Heavy tobacco smoker Tobacco type: cigarettes Second hand tobacco smoke exposure: Yes Alcohol intake: former Drinks per week: 35 Substance use: current Substance use type: marijuana Gender identity (if verbalized by the patient): Male Spiritual care concerns: No Exam Narrative: General appearance: Well-developed, well-nourished Skin: Normal color Head: Normocephalic, nontraumatic Eyes: Clear conjunctiva ENT: Oropharynx normal, ears normal, nose normal Neck: Supple, nontender Chest and respiratory: Airway patent, no respiratory distress, no accessory muscle use Heart: Regular rate/rhythm Abdomen: Soft, nontender, no organomegaly, quiet bowel sounds, rectal exam showed yellow stool,, guaiac negative Vascular: Normal peripheral pulses, normal capillary refill. Musculoskeletal: Right wrist with diffuse pain with deformity Neurologic: Alert and oriented ?3, METAL TESTER is normal as tested, no gross motor deficit Course Reevaluation(s)
[2022-11-13 22:00] LABS: INR 1.5; Prothrombin Time 19.3 Seconds (11.1-14.7)
[2022-11-13 22:01] LABS: Partial Thromboplastin Time 35.3 SECONDS (22.3-36.8)
[2022-11-13] MEDS: SODIUM CHLORIDE 0.9% IV 250 ML 30 ML IV CONT (23:20)
[2022-11-13] MEDS: PANTOPRAZOLE SODIUM IV 40 MG VIAL IV PUSH (23:22)
[2022-11-13] MEDS: SODIUM CHLORIDE 0.9% IV 1,000 ML 999 ML IV CONT (23:24)
[2022-11-14] VITALS (13 sets, daily range): BP systolic 123–154; BP diastolic 70–95; PULSE 73–101; RESP 16–27; TEMP 36.4–37.3; O2SAT 92–100; BMI 18.3
[2022-11-14 03:16] LABS: Appearance Urine Clear (Clear); Bacteria Urine None Seen /hpf; Bilirubin Urine 1+ (Negative); Blood Urine Negative (Negative); Color Urine Dark Yellow (Yellow); Glucose Urine UA Negative (Negative); Hyaline Casts Urine Present /lpf; Ketones Urine Trace mg/dL (Negative); Leukocyte Esterase Ur Trace LEU/UL (Negative); Need Manual Microscopic Reviewed; Nitrate Urine Negative (Negative); Protein Urine Negative (Negative); RBC Urine 0-2 /hpf (0-2); Specific Grav Ur 1.017 (1.001-1.035); Squamous Epithelial Cell Urine None seen /hpf (Few); Urobilinogen Urine 0.2 mg/dL (<2.0); WBC Urine 0-5 /hpf; pH Urine 5.5 (5.0-9.0)
[2022-11-14 03:18] LABS: Add Urine Microscopic? YES
--- NOTE | 2022-11-14 07:57 | PM.IMHP ---
H&P: HPI History of Present Illness Date/Time: 11/14/22 07:57 Chief Complaint: This is a 67 year old gentleman with a PMH of ETOH abuse, CHF, GERD, PUD, and anemia who presents to the ED after having 4 days of diarrhea. He also reports two falls within the last 2 weeks resulting in right wrist pain. On admission he was found to have a hemoglobin of 5.9/19.3, WBC 14.5, NA 131, Cr 1.40, PT 19.3, and Alk phos 177. His urine and chest x-ray were negative for infectious process. He received a bolus of NS and was started on maintenance fluids at 150 ml per hour, he received 3 units of packed cells, and was started on Protonix. GI has been consulted for concerns of GI bleed. 11/14:Patient seen today resting in bed. he says that his right wrist hurts. He states that he has had a couple falls in the last 1-2 weeks and this last time he fell he he landed on his right wrist. He has been feeling dizzy, short of breath with exertion, and weak. He also states that he has had a poor appetite as of late. He denies any blood in his stool, says it appears brown and is normal. Denies nausea, vomiting and abdominal tenderness. I reviewed with him his past medical history. He states that he has a drinker of alcohol, drinking 1-2 beers in 1-2 shots every 3-4 days. He states he has never had any withdrawal wall admitted to the hospital. He has had a rehab stay before for his alcoholism and during 1 of the stays he says he received some medication that caused him to go into cardiac arrest. He was resuscitated and transferred to a hospital at that time. He says that was about 4 years ago. Other history includes pancreatitis, GERD, and peptic ulcer disease. patient states that he had a similar presentation a couple of years ago when he was diagnosed with peptic ulcer disease. He was not taking his Protonix as he should and he developed bloody vomiting and had black stools because of to present to the hospital. He was seen by GI at that time and was found to have AVMs on EGD and colonoscopy just showed polyps and hemorrhoids. Right now his biggest concern is the pain he has in his right wrist, as well as limited mobility. X-rays were obtained in the ER and were negative for fracture. Will treat conservatively as a wrist sprain. Will obviously avoid NSAIDs with concerns for bleeding, but will add [place], ice packs, and elevation. Otherwise he continues on IV fluids, is NPO, and hemoglobin has increased to 12 after 3 units of PRBCs. Continue with serial labs. Review of Systems Review of Systems: All systems reviewed & are unremarkable except as noted in HPI and below PMFSH Past Medical History Medical History Acute on chronic blood loss anemia Acute on chronic pancreatitis Alcohol abuse Cardiac arrest CHF (congestive heart failure) Coagulopathy Coffee ground emesis Gastric ulcer Gastritis Gastroesophageal reflux disease Hepatic encephalopathy History of tobacco use Pancreatitis (~04/2003) Peptic ulcer disease Portal vein thrombosis Severe anemia Shock liver Thrombocytopenia Tobacco abuse Transaminitis Surgical History Surgical History History of chest tube placement History of esophagogastroduodenoscopy (~04/2003) EGD showed gastritis and edema of the duodenum with prominent veins in the gastric body though no true varices. History of resection of small bowel Related to peptic ulcer disease. Family History Family History Other Unknown family medical history Social History Social History Social History: The patient lives in [place] with his sister who is epileptic. They both help each other at the house. A brother who lived with them has recently and family members took turns caring for him before he passed.
[2022-11-14] MEDS: SODIUM CHLORIDE 0.9% IV 1,000 ML 75 ML IV CONT ×2 (08:07→20:11)
[2022-11-14 09:24] LABS: Alanine Aminotransferase 23 U/L (6-50); Albumin Level 2.5 g/dL (3.5-5.1); Alkaline Phosphatase 150 U/L (38-126); Anion Gap 6 mmol/L (8-16); Aspartate Amino Transferase 35 U/L (17-59); Basophils Absolute Auto 0.1 K/mm3 (0.0-0.1); Basophils Percent Auto 0.6 % (0.2-1.2); Bilirubin,Total 2.7 mg/dL (0.2-1.3); Blood Urea Nitrogen 12 mg/dL (9-20); Calcium 7.2 mg/dL (8.4-10.2); Carbon Dioxide 24 mmol/L (22-30); Chloride 106 mmol/L (98-107); Eosinophils Percent Auto 0.1 % (0-4.4); Estimated CRCL calculation 44 ml/min; Estimated Glomerular Filt Rate > 60; Glucose 95 mg/dL (65-110); Hematocrit 39.1 % (42.0-52.0); Hemoglobin 12.2 g/dL (14.0-18.0); Immature Granulocyte Absolute 0.11 K/mm3 (0.00-0.031); Immature Granulocyte Percent A 0.9 % (0-0.5); Lymphocytes Absolute Auto 0.91 K/mm3 (0.9-3.2); Lymphocytes Percent Auto 7.6 % (18.3-44.2); Mean Corpuscular HGB Conc 31.2 g/dl (32-36); Mean Corpuscular Hemoglobin 28.8 pg (26-34); Mean Corpuscular Volume 92.4 fl (80-100); Mean Platelet Volume 10.9 fl (7.4-10.4); Monocytes Absolute Auto 2.2 K/mm3 (0.1-0.6); Neutrophils Absolute Auto 8.7 K/mm3 (1.3-6.7); Neutrophils Percent Auto 72.8 % (45.5-73.1); Nucleated Red Blood Cells Perc 0.3 % (0.0-0.2); Platelet Count Result 349 k/mm3 (150-375); Potassium 3.6 mmol/L (3.4-5.0); Red Blood Count 4.23 M/mm3 (4.6-6.20); Sodium 136 mmol/L (137-145)
[2022-11-14 09:31] LABS: Iron 63 ug/dL (49-181)
[2022-11-14 09:40] LABS: Percent Iron Saturation 25 % (20-50)
[2022-11-14] MEDS: FOLIC ACID 1 MG TABLET PO (09:47)
[2022-11-14] MEDS: THIAMINE HCL 50 MG TABLET PO (09:47)
[2022-11-14] MEDS: THERAPEUTIC MULTIVITAMINS/MINERALS TAB (*BKC) 1 TABLET PO (09:47)
[2022-11-14] MEDS: PANTOPRAZOLE SODIUM IV 40 MG VIAL IV PUSH ×2 (09:47→20:07)
[2022-11-14 10:21] LABS: Lactate Dehydrogenase 324 U/L (120-246)
[2022-11-14] MEDS: HYDROcodone/acetaminophen (*CRX) 5-325 MG TABLET 1 TAB PO ×2 (10:34→20:07)
[2022-11-14 10:41] LABS: Folic Acid > 20.0 ng/mL (2.76->20); Vitamin B12 > 1000.0 pg/mL (239-931)
[2022-11-14 12:40] LABS: IFOB Positive Control Positive; Immunochemical Fecal Occult Bl Negative (N)
--- NOTE | 2022-11-14 13:41 | WPDGICN ---
Assessment and Plan Assessment and plan (1) Anemia: Qualifiers: Anemia type: other cause Other causes of anemia: other cause, not classified Qualified Code(s): D64.89 - Other specified anemias Code(s): D64.9 - Anemia, unspecified Status: Acute Assessment and Plan: Review of labs reveal the patient appears to have a chronic anemia. Etiology somewhat unclear. He currently has Hemoccult-negative stool suggesting no acute bleeding. Endoscopy within the last 2 years revealed gastric AVMs which likely could be recurrent. Will plan elective EGD to evaluate and follow up more thoroughly. Patient also has elevated bilirubin and elevated LDH suggesting he may have hemolysis. Hematology consult may be of some benefit this regard. Lab tests also show that at the time of admission initial hemoglobin was too low and follow-up hemoglobin after transfusion was too high a. This suggests that 1 of these lab values with spurious. Typically after transfusion hemoglobin with usually respond by 1 g for every unit of blood transfused. I suspect that one of these lab findings is spurious. (2) Gastric AVM: Code(s): K31.819 - Angiodysplasia of stomach and duodenum without bleeding Status: Acute Assessment and Plan: Several gastric angiodysplasias were cauterized in December of 2020. As stools are Hemoccult negative this is not actively bleeding but potentially could have a slow trickle caudate contributing to his chronic anemia. Iron studies currently are normal suggesting this may not be the case. GI Consult Note Consult date/time: 11/14/22 13:41 Reason for consult: Anemia HPI: Gasper Correia is a 67 year old male I am asked to see at the request the hospitalist service because of anemia. Patient has a long history of alcohol abuse. He states he has decrease this intake over recent years. He continues to drink intermittently in rather heavily. Patient apparently felt somewhat dizzy and for this reason went to the emergency room. He was found to have a low hemoglobin. Stools Hemoccult negative. No obvious bleeding was identified. Review of old records reveals the patient did have a history of a peptic ulcer some years ago. In December of 2020 EGD revealed multiple gastric AVMs. Patient also had several benign tubular adenomas on colonoscopy at that time. patient denies any abdominal pain. Family history noncontributory. Review of Systems Review of Systems: Review of systems noncontributory. FORMERLY [facility], [facility] Past Medical History Medical History Acute on chronic blood loss anemia Acute on chronic pancreatitis Alcohol abuse Cardiac arrest CHF (congestive heart failure) Coagulopathy Coffee ground emesis Gastric ulcer Gastritis Gastroesophageal reflux disease Hepatic encephalopathy History of tobacco use Pancreatitis (~04/2003) Peptic ulcer disease Portal vein thrombosis Severe anemia Shock liver Thrombocytopenia Tobacco abuse Transaminitis Surgical History Surgical History History of chest tube placement History of esophagogastroduodenoscopy (~04/2003) EGD showed gastritis and edema of the duodenum with prominent veins in the gastric body though no true varices. History of resection of small bowel Related to peptic ulcer disease. Family History Family History Other Unknown family medical history Social History Social History Social History: The patient lives in [place] with his sister who is epileptic. They both help each other at the house. A brother who lived with them has recently and family members took turns caring for him before he passed. Patient admits to ongoing smoking of a pack per day. Patient admits to drinking up to a fifth to
[2022-11-14 14:24] LABS: Bilirubin Indirect 1.4 mg/dL (0-1.1); Bilirubin,Total 2.3 mg/dL (0.2-1.3)
[2022-11-14 17:19] LABS: Hematocrit 32.4 % (42.0-52.0); Hemoglobin 10.8 g/dL (14.0-18.0)
[2022-11-14 23:49] LABS: Hematocrit 36.3 % (42.0-52.0); Hemoglobin 11.9 g/dL (14.0-18.0)
[2022-11-15] VITALS (10 sets, daily range): BP systolic 83–170; BP diastolic 55–95; PULSE 80–89; RESP 14–26; TEMP 36.2–36.6; O2SAT 93–100
[2022-11-15] MEDS: LACTATED RINGERS 1,000 ML 150 ML IV CONT (06:51)
[2022-11-15 07:02] LABS: Glucose Point of Care 72 mg/dl (65-105)
--- NOTE | 2022-11-15 07:15 | WPDANESEPPF ---
Anes - Initial Pre Proc Eval Procedure: Operation Date: 11/15/22 07:30 Proposed Procedures p Esophagogastroduodenoscopy EGD - Berhane Connor MD Date/Time: 11/15/22 07:15 Surgeon: Jammie Moran MD Pre Op Diagnosis: Anemia/Diarrhea/KAT Patient Data Age: 67 Gender: M Height: 1.73 m Weight: 54.8 kg Last Vital Signs Temp 36.6 C 11/15/22 06:42 Pulse 81 11/15/22 06:42 Resp 16 11/15/22 06:42 BP 164/95 H 11/15/22 06:42 Pulse Ox 100 11/15/22 06:42 O2 Del Method Room Air 11/15/22 06:42 Allergies Allergy/AdvReac Type Severity Reaction Status Date / Time No Known Allergies Allergy Unknown Verified 11/15/22 06:37 Home Medications Medication Instructions Recorded Confirmed Type folic acid 1 mg tablet 1 mg PO QAM #30 tabs 09/23/20 11/14/22 Rx glipizide 5 mg tablet 5 mg PO DAILY #30 tabs 09/23/20 11/14/22 Rx pantoprazole 40 mg tablet,delayed 40 mg PO QAM #30 tabs 09/23/20 11/14/22 Rx release thiamine HCl (vitamin B1) 100 mg 100 mg PO QAM #30 tabs 09/23/20 11/14/22 Rx tablet (Vitamin B-1) Laboratory Tests 11/13/22 11/13/22 11/14/22 20:45 21:44 08:49 WBC RBC Hgb Hct MCV MCH MCHC RDW Plt Count MPV Immature Gran % (Auto) Neut % (Auto) Lymph % (Auto) Mcleod % (Auto) Eos % (Auto) Baso % (Auto) Lymph # (Auto) Mcleod # (Auto) Eos # (Auto) Baso # (Auto) Abs Immat Gran (auto) Absolute Neuts (auto) Absolute Nucleated RBC Nucleated RBC % Sodium Potassium Chloride Carbon Dioxide Anion Gap BUN Creatinine Estim Creat Clear Calc Estimated GFR Glucose POC Capillary Glucose Hemoglobin A1c TNP Calcium Iron TIBC % Saturation Ferritin Total Bilirubin 2.3 H mg/dL (0.2-1.3) Direct Bilirubin 0.0 mg/dL (0-0.3) Indirect Bilirubin 1.4 H mg/dL (0-1.1) AST ALT Alkaline Phosphatase Lactate Dehydrogenase 324 H U/L (120-246) Total Protein Albumin Vitamin B12 Folate Stl Occult Blood (IFOB) Ref Lab Test Name Pending Ref Lab Test Result Pending Crossmatch See Detail 11/14/22 11/14/22 11/14/22 08:55 11:56 17:13 WBC 12.0 H K/mm3 (4.5-10.0) RBC 4.23 L M/mm3 (4.6-6.20) Hgb 12.2 L D g/dL 10.8 L g/dL (14.0-18.0) (14.0-18.0) Hct 39.1 L % 32.4 L % (42.0-52.0) (42.0-52.0) MCV 92.4 D fl (80-100) MCH 28.8 D pg (26-34) MCHC 31.2 L g/dl (32-36) RDW 21.0 H % (11.5-14.5) Plt Count 349 k/mm3 (150-375) MPV 10.9 H fl (7.4-10.4) Immature Gran % (Auto) 0.9 H % (0-0.5) Neut % (Auto) 72.8 % (45.5-73.1) Lymph % (Auto) 7.6 L % (18.3-44.2) Mcleod % (Auto) 18.0 H % (2.6-8.5) Eos % (Auto) 0.1 % (0-4.4) Baso % (Auto) 0.6 % (0.2-1.2) Lymph # (Auto) 0.91 K/mm3 (0.9-3.2) Mcleod # (Auto) 2.2 H K/mm3 (0.1-0.6) Eos # (Auto) 0.0 K/mm3 (0-0.3) Baso # (Auto) 0.1 K/mm3 (0.0-0.1) Abs Immat Gran (auto) 0.11 H K/mm3 (0.00-0.031) Absolute Neuts (auto) 8.7 H K/mm3 (1.3-6.7) Absolute Nucleated RBC 0.0 K/mm3 (0.0-0.012) Nucleated RBC % 0.3 H % (0.0-0.2) Sodium 136 L mmol/L (137-145) Potassium 3.6 mmol/L (3.4-5.0) Chloride 106 mmol/L (98-107) Carbon Harvey
--- NOTE | 2022-11-15 08:20 | PC.NURSE ---
Returned from GI Lab. Report received from Ana Luisa.
[2022-11-15] MEDS: FOLIC ACID 1 MG TABLET PO (08:33)
[2022-11-15] MEDS: THIAMINE HCL 50 MG TABLET PO (08:33)
[2022-11-15] MEDS: PANTOPRAZOLE SODIUM IV 40 MG VIAL IV PUSH ×2 (08:33→20:43)
[2022-11-15] MEDS: THERAPEUTIC MULTIVITAMINS/MINERALS TAB (*BKC) 1 TABLET PO (08:33)
--- NOTE | 2022-11-15 09:19 | PM.IMPN ---
Progress Note: A&P Assessment and Plan (1) Anemia: Qualifiers: Anemia type: other cause Other causes of anemia: other cause, not classified Qualified Code(s): D64.89 - Other specified anemias Code(s): D64.9 - Anemia, unspecified Status: Acute Assessment and Plan: -Hemoglobin 5.9 on admission, today 11.6. Received 3 units of pRBCs. -Monitor stools for blood. Stool guaiac was negative in the ED. -Patient had a similar presentation in December 2020 with low H/H but then accompanied by melena and hematemesis. He was diagnosed with PUD in July of 2020 but was not taking his PPI as prescribed. He was seen by GI during that stay and underwent EGD and colonoscopy. Colonoscopy showed polyps and hemorrhoids and EGD showed AVM's that were thought to be contributory to his anemia. -GI consult this admission. Patient had EGD today which showed multiple gastric and duodenal AVMs. None actively bleeding however they went ahead and visualized were cauterized with APC cautery. She had a plans conservative management with intermittent monitoring of hemoglobin. Recommends chronic iron replacement. Anemia labs were sent however this was after 3 units PRBCs so results are skewed. Will add daily iron b.i.d., multivitamin. Continue monitoring hemoglobin throughout today if patient appears well tomorrow hemoglobin is stable and his blood pressures are maintained he will discharge home. (2) KAT (acute kidney injury): Code(s): N17.9 - Acute kidney failure, unspecified Status: Acute Assessment and Plan: -Cr 1.4 likely from low H/H. -s/p 3 units pRBC, 1 L NS, and now on maintenance fluids. I decreased his rate from 150 ml per hour to 75 ml per hour as he is slightly HTN likely from fluids. (3) Dizziness: Code(s): R42 - Dizziness and giddiness Status: Acute Assessment and Plan: -Likely related to dehydration and anemia (4) Alcohol abuse: Code(s): F10.10 - Alcohol abuse, uncomplicated Status: Acute Assessment and Plan: -Weekly drinker. Says he has 1-2 beers and 1-2 shots every three to to four days. Denies ever withdrawaling from ETOH while admitted. -CIWA -Started on b1, folic acid, and multivitamin (5) Right wrist injury: Code(s): S69.91XA - Unspecified injury of right wrist, hand and finger(s), initial encounter Status: Acute Assessment and Plan: -injury sustained after a fall this last week -xr on admission shows no obvious fracture or dislocation. -Cannot have NSAIDs because of bleeding risk. Will add norco and manage with standard sprain care: ice, elevated, and susanne wrap for comfort. Plan Monitor for hemoglobin today. Anticipate discharge tomorrow as long as labs look okay. Subjective Date/time seen: 11/15/22 09:19 Interval history: Chief Complaint: This is a 67 year old gentleman with a PMH of ETOH abuse, CHF, GERD, PUD, and anemia who presents to the ED after having 4 days of diarrhea. He also reports two falls within the last 2 weeks resulting in right wrist pain. On admission he was found to have a hemoglobin of 5.9/19.3, WBC 14.5, NA 131, Cr 1.40, PT 19.3, and Alk phos 177. His urine and chest x-ray were negative for infectious process. He received a bolus of NS and was started on maintenance fluids at 150 ml per hour, he received 3 units of packed cells, and was started on Protonix. GI has been consulted for concerns of GI bleed. 11/14:Patient seen today resting in bed.? he says that his right wrist hurts. ? He states that he has had a couple falls in the last 1-2 weeks and this last time he fell he he landed on his right wrist.? He has been feeling dizzy, short of breath with exertion, and weak. ? He also states that he has had a poor appetite as of late.? He denies any blood in his stool, says it appears brown and is normal.? Denies nausea, vomiting and abdominal tenderness. ? I reviewed with him his past medical history.? He states that he
[2022-11-15 09:44] LABS: Basophils Percent Auto 0.3 % (0.2-1.2); Eosinophils Percent Auto 0.1 % (0-4.4); Hematocrit 35.5 % (42.0-52.0); Hemoglobin 11.6 g/dL (14.0-18.0); Immature Granulocyte Absolute 0.08 K/mm3 (0.00-0.031); Immature Granulocyte Percent A 0.6 % (0-0.5); Lymphocytes Percent Auto 6.4 % (18.3-44.2); Mean Corpuscular HGB Conc 32.7 g/dl (32-36); Mean Corpuscular Hemoglobin 27.9 pg (26-34); Mean Corpuscular Volume 85.3 fl (80-100); Mean Platelet Volume 9.6 fl (7.4-10.4); Monocytes Percent Auto 14.2 % (2.6-8.5); Neutrophils Absolute Auto 11.1 K/mm3 (1.3-6.7); Neutrophils Percent Auto 78.4 % (45.5-73.1); Platelet Count Result 428 k/mm3 (150-375); Red Blood Count 4.16 M/mm3 (4.6-6.20); Red Cell Distribution Width 20.8 % (11.5-14.5); White Blood Count 14.1 K/mm3 (4.5-10.0)
[2022-11-15 09:58] LABS: Alanine Aminotransferase 20 U/L (6-50); Albumin Level 2.6 g/dL (3.5-5.1); Alkaline Phosphatase 152 U/L (38-126); Anion Gap 6 mmol/L (8-16); Aspartate Amino Transferase 25 U/L (17-59); Bilirubin,Total 2.1 mg/dL (0.2-1.3); Blood Urea Nitrogen 8 mg/dL (9-20); Calcium 7.5 mg/dL (8.4-10.2); Carbon Dioxide 23 mmol/L (22-30); Chloride 104 mmol/L (98-107); Estimated CRCL calculation 53 ml/min; Estimated Glomerular Filt Rate > 60; Glucose 93 mg/dL (65-110); Potassium 3.6 mmol/L (3.4-5.0); Sodium 133 mmol/L (137-145)
[2022-11-15] MEDS: FERROUS SULFATE 324 MG TABLET PO ×2 (10:39→16:49)
[2022-11-15] MEDS: HYDROcodone/acetaminophen (*CRX) 5-325 MG TABLET 1 TAB PO (11:41)
[2022-11-15] MEDS: KETOROLAC 30 MG/ML VIAL (*BKC) IV PUSH (21:35)
[2022-11-16 00:22] VITALS: BP 138/83
[2022-11-16 06:00] VITALS: BP 145/80; PULSE 75; RESP 16; TEMP 37; O2SAT 96
[2022-11-16 06:06] LABS: Basophils Percent Auto 0.3 % (0.2-1.2); Eosinophils Percent Auto 0.3 % (0-4.4); Hematocrit 32.4 % (42.0-52.0); Hemoglobin 10.3 g/dL (14.0-18.0); Immature Granulocyte Absolute 0.06 K/mm3 (0.00-0.031); Immature Granulocyte Percent A 0.5 % (0-0.5); Lymphocytes Absolute Auto 0.84 K/mm3 (0.9-3.2); Lymphocytes Percent Auto 6.8 % (18.3-44.2); Mean Corpuscular HGB Conc 31.8 g/dl (32-36); Mean Corpuscular Hemoglobin 27.6 pg (26-34); Mean Corpuscular Volume 86.9 fl (80-100); Mean Platelet Volume 9.8 fl (7.4-10.4); Monocytes Absolute Auto 1.9 K/mm3 (0.1-0.6); Monocytes Percent Auto 15.6 % (2.6-8.5); Neutrophils Absolute Auto 9.4 K/mm3 (1.3-6.7); Neutrophils Percent Auto 76.5 % (45.5-73.1); Platelet Count Result 404 k/mm3 (150-375); Red Blood Count 3.73 M/mm3 (4.6-6.20); Red Cell Distribution Width 20.9 % (11.5-14.5); White Blood Count 12.3 K/mm3 (4.5-10.0)
[2022-11-16 06:16] LABS: Alanine Aminotransferase 18 U/L (6-50); Albumin Level 2.2 g/dL (3.5-5.1); Alkaline Phosphatase 131 U/L (38-126); Anion Gap 5 mmol/L (8-16); Aspartate Amino Transferase 37 U/L (17-59); Bilirubin,Total 1.8 mg/dL (0.2-1.3); Blood Urea Nitrogen 9 mg/dL (9-20); Calcium 7.3 mg/dL (8.4-10.2); Carbon Dioxide 28 mmol/L (22-30); Chloride 103 mmol/L (98-107); Estimated CRCL calculation 53 ml/min; Estimated Glomerular Filt Rate > 60; Glucose 67 mg/dL (65-110); Potassium 3.4 mmol/L (3.4-5.0); Sodium 136 mmol/L (137-145)
[2022-11-16] MEDS: HYDROcodone/acetaminophen (*CRX) 5-325 MG TABLET 1 TAB PO (07:53)
[2022-11-16 08:10] VITALS: O2SAT 97
[2022-11-16] MEDS: THIAMINE HCL 50 MG TABLET PO (08:37)
[2022-11-16] MEDS: FERROUS SULFATE 324 MG TABLET PO (08:37)
[2022-11-16] MEDS: THERAPEUTIC MULTIVITAMINS/MINERALS TAB (*BKC) 1 TABLET PO (08:37)
[2022-11-16] MEDS: FOLIC ACID 1 MG TABLET PO (08:37)
[2022-11-16] MEDS: PANTOPRAZOLE SODIUM IV 40 MG VIAL IV PUSH (08:37)
--- NOTE | 2022-11-16 09:19 | PM.DS ---
DS: Admitting Diagnosis Discharge Date 11/16/2022 Admitting Diagnosis Anemia KAT Dizziness Alcohol abuse Right wrist injury DS: Discharge Diagnosis Discharge Diagnosis (1) Anemia: Qualifiers: Anemia type: other cause Other causes of anemia: other cause, not classified Qualified Code(s): D64.89 - Other specified anemias Code(s): D64.9 - Anemia, unspecified Status: Acute Assessment and Plan: Stabilized after transfusion 3 units packed red blood cells (2) KAT (acute kidney injury): Code(s): N17.9 - Acute kidney failure, unspecified Status: Acute Assessment and Plan: Stabilized returned to normal renal function (3) Gastric AVM: Code(s): K31.819 - Angiodysplasia of stomach and duodenum without bleeding Status: Acute Assessment and Plan: Upper GI revealed multiple gastric AVMs, none actively bleeding (4) Alcohol abuse: Code(s): F10.10 - Alcohol abuse, uncomplicated Status: Acute Assessment and Plan: Patient on folic acid and thiamine at home, instructed to continue. Encouraged to decrease ETOH use. (5) Right wrist injury: Code(s): S69.91XA - Unspecified injury of right wrist, hand and finger(s), initial encounter Status: Acute Assessment and Plan: No fracture on imaging. Clif wrap in place upon discharge. Short course of oral [place] for severe pain. DS: Summary Hospital Course Reason for hospitalization: This is a 67-year-old male patient with complex past medical history including gastritis, gastric AVM, alcohol abuse who was admitted to the hospital for anemia. Hospital Course: This is a 67 year old gentleman with a PMH of ETOH abuse, CHF, GERD, PUD, and anemia who presents to the ED after having 4 days of diarrhea. He also reports two falls within the last 2 weeks resulting in right wrist pain. On admission he was found to have a hemoglobin of 5.9/19.3, WBC 14.5, NA 131, Cr 1.40, PT 19.3, and Alk phos 177. His urine and chest x-ray were negative for infectious process. He received a bolus of NS and was started on maintenance fluids at 150 ml per hour, he received 3 units of packed cells, and was started on Protonix. GI has been consulted for concerns of GI bleed. 11/14:Patient seen today resting in bed.? he says that his right wrist hurts. ? He states that he has had a couple falls in the last 1-2 weeks and this last time he fell he he landed on his right wrist.? He has been feeling dizzy, short of breath with exertion, and weak. ? He also states that he has had a poor appetite as of late.? He denies any blood in his stool, says it appears brown and is normal.? Denies nausea, vomiting and abdominal tenderness. ? I reviewed with him his past medical history.? He states that he has a drinker of alcohol, drinking 1-2 beers in 1-2 shots every 3-4 days.? He states he has never had any withdrawal wall admitted to the hospital.? He has had a rehab stay before for his alcoholism and during 1 of the stays he says he received some medication that caused him to go into cardiac arrest.? He was resuscitated and transferred to a hospital at that time.? He says that was about 4 years ago.? Other history includes pancreatitis, GERD, and peptic ulcer disease.? patient states that he had a similar presentation a couple of years ago when he was diagnosed with peptic ulcer disease.? He was not taking his Protonix as he should and he developed bloody vomiting and had black stools because of to present to the hospital.? He was seen by GI at that time and was found to have AVMs on EGD and colonoscopy just showed polyps and hemorrhoids. ? Right now his biggest concern is the pain he has in his right wrist, as well as limited mobility.? X-rays were obtained in the ER and were negative for fracture.? Will treat conservatively as a wrist sprain.? Will obviously avoid NSAIDs with concerns for bleeding, but will add [place], ice packs, and elevation.? Otherwise he continues on
--- NOTE | 2022-11-16 12:19 | PCPTNOTE ---
On 11/16/22, the student, [Lori German], provided care and completed [facility] documentation on this patient. I have reviewed the student's documentation and agree with the findings.
[2022-11-18 07:33] LABS: Reference Lab Test Name HGB A1C
[2022-11-18 07:34] LABS: Reference Lab Test Result 4.5
== END 2022-11-16 10:35 | disposition home or self-care (01) | DRG 392 ==
LOC: ANHED 22:29 → ANH3MEDSUR 11-14 00:13
PROVIDERS: Internal Medicine Gastroenterology; Nurse Practitioner Acute Care; Admitting Provider Internal Medicine; Emergency Provider Emergency Medicine; PCP Family Medicine; Visit Provider Nurse Practitioner
PROC: 0DJ08ZZ Inspection of Upper Intestinal Tract, Via Natural or Artificial Opening Endoscopic (ICD-10-PCS; CPT 43235; principal; 2022-11-15 07:30)
DX: K31.819 Angiodysplasia of stomach and duodenum without bleeding (principal); N17.9 Acute kidney failure, unspecified; D50.8 Other iron deficiency anemias; E86.0 Dehydration; F10.10 Alcohol abuse, uncomplicated; S63.501A Unspecified sprain of right wrist, initial encounter; W19.XXXA Unspecified fall, initial encounter; K21.9 Gastro-esophageal reflux disease without esophagitis; I11.0 Hypertensive heart disease with heart failure; I50.9 Heart failure, unspecified; F17.210 Nicotine dependence, cigarettes, uncomplicated; Z87.11 Personal history of peptic ulcer disease
CPT/HCPCS: 36415; 36430; 71045; 73110; 73130; 80053; 81001; 82247; 82248; 82274; 82607; 82728; 82746; 82948; 83036; 83540; 83550; 83615; 85014; 85018; 85025; 85610; 85730; 86850; 86900; 86901; 86923; 93005; 97161; 99285; A4565; A9270; C9113; J1885; J2704; J7030; J7050; J7120; P9016

== ENCOUNTER 2023-02-13 15:58 | Emergency (ER) | payer MEDICARE, MEDICAID, SELFPAY ==
[2023-02-13] VITALS (62 sets, daily range): BP systolic 56–117; BP diastolic 12–77; PULSE 48–139; RESP 14–21; TEMP 31.3–33.1; O2SAT 98–100
--- NOTE | ~2023-02-13 | CT_ITS ---
EXAMINATION: CT brain wo con DATE: 02/13/2023 18:27 INDICATION: cardiac arrest . TECHNIQUE: Computed tomography (CT) of the head was performed without intravenous contrast. The mA wa s adjusted according to patient size. Iterative reconstruction technique was employed. The dose-lengt h product was 983.67 mGy-cm. COMPARISON: 09/15/2020. FINDINGS: Motion artifact which required repeat imaging. No acute intracranial hemorrhage or extra-axial fluid collection. No hydrocephalus, mass, or herniation. No acute ischemic infarct. Unremarkable dural venous sinus attenuation. No acute osseous abnormality. Aerated secretions in the nasopharynx. Air-fluid levels in the sphenoid sinuses. Mucosal thickening a nd opacification in the ethmoid air cells and maxillary sinuses, the remaining aerated spaces are steven ar. Mild atrophy and chronic white matter change. Atherosclerotic intracranial calcification. Bilateral l ens replacements. IMPRESSION: No acute intracranial process. Reviewed, dictated and finalized at location K.
--- NOTE | ~2023-02-13 | XR_ITS ---
EXAMINATION: XR chest 1V portable Exam Date/Time: 02/13/2023 21:00 CDT HISTORY: eval for PTX Comparison: 02/13/2023 x-ray chest and x-ray abdomen. RESULT: Lines, tubes, and devices: Endotracheal tube and nasogastric tube remain in good position. Lungs and pleura: No pneumothorax. Increasing bilateral streaky linear opacities. Cardiomediastinal silhouette: Stable. Other: No acute osseous or upper abdominal finding. IMPRESSION: No pneumothorax detected. The abdominal radiograph findings were artifactual. Increasing bibasilar at electasis. Reviewed, dictated and finalized at location K. IMPRESSION: No pneumothorax detected. The abdominal radiograph findings were artifactual. I ncreasing bibasilar atelectasis.
--- NOTE | ~2023-02-13 | CT_ITS ---
EXAMINATION: CT chest abdomen pelvis w con DATE: 02/13/2023 18:32 INDICATION: cardiac arrest . TECHNIQUE: Computed tomography (CT) of the chest, abdomen, and pelvis was performed with 100 mL Omnip aque-350 intravenous contrast. Automated exposure control and iterative reconstruction technique were employed. The dose-length product was 509.60 mGy-cm. COMPARISON: None FINDINGS: CHEST: Thoracic aorta: No significant dilation or calcification. Lung parenchyma and airways: Emphysematous change. Bilateral dependent and medial lower lung consolid ation/scarring. Endotracheal tube terminates in the midthoracic trachea. Airway fluid debris and mult iple dependent lower lobe bronchi. Mild scattered tree-in-bud opacities, most evident in the right up per and lower lobes. Thoracic inlet, axillae and chest wall: No thyroid or soft tissue mass. No axillary lymphadenopathy. Diffuse body wall edema. Mediastinum: Esophageal varices. No mass or lymphadenopathy. Heart and pericardium: Normal heart size. No pericardial effusion. Coronary artery calcifications: Heavy. Pleura: No effusion or mass. Thoracic bones: Multiple nondisplaced complete and incomplete anterior and anterolateral bilateral ri b fractures. ABDOMEN/PELVIS: Liver: Small liver with a nodular border. Marked diffuse parenchymal low density. Tortuous vessels at the benjamín hepatis. Varices at the GE junction Biliary/Gallbladder: Gallbladder is normal. No bile duct dilation. Pancreas: Pancreatic atrophy. Spleen: Normal. Adrenals: Bilateral hyperenhancement. Kidneys: Patchy multifocal areas of hypoenhancement. GI tract: No small or large bowel dilation. Small bowel wall hyperemia with areas of mild scattered t hickening. Normal appendix. Mesentery/Peritoneum: Large volume ascites. Retroperitoneum: No mass Atherosclerotic abdominal aortic and/or arterial calcifications. Pelvis: The bladder is decompressed by Stephenson catheter. Right groin venous catheter, terminating in th e IVC. Soft Tissues: Soft tissues and body wall unremarkable. Abdominopelvic bones: No acute osseous finding in the abdomen/pelvis. IMPRESSION: Tree-in-bud opacities, most evident in the right lung, may represent atypical infection or aspiration . Bilateral medial lower lung atelectasis/consolidation with airway debris, may reflect a component of acute/chronic aspiration. Cirrhosis, severe steatosis, cavernous transformation, and portal hypertension. CT hypoperfusion complex. Multiple suspected renal infarcts. Massive ascites. Multiple nondisplaced complete and incomplete anterior and anterolateral bilateral rib fractures. Reviewed, dictated and finalized at location K. IMPRESSION: Tree-in-bud opacities, most evident in the right lung, may represent atypical i nfection or aspiration. Bilateral medial lower lung atelectasis/consolidation with airway debris, may r eflect a component of acute/chronic aspiration. Cirrhosis, severe steatosis, cavernous transformation, and portal hypertension. CT hypoperfusion complex. Multiple suspected renal infarcts. Massive ascites. Multiple nondisplaced complete and incomplete anterior and anterolateral bilate ral rib fractures.
--- NOTE | ~2023-02-13 | XR_ITS ---
EXAMINATION: XR chest ET placement Exam Date/Time: 02/13/2023 16:20 CDT HISTORY: s/p intubuation, et tube placement Comparison: 11/13/2022. RESULT: Lines, tubes, and devices: Defibrillator pad. Endotracheal tube, terminating 4.2 cm above the royer . Lungs and pleura: Streaky, linear bilateral lower lung opacities. Minimal left costophrenic angle bl unting. Cardiomediastinal silhouette: Stable. Other: No acute osseous or upper abdominal finding. IMPRESSION: Endotracheal tube in good position. Bilateral lower lung atelectasis/scar. Possible trace left pleura l effusion. Reviewed, dictated and finalized at location K. IMPRESSION: Endotracheal tube in good position. Bilateral lower lung atelectasis/scar. Poss ible trace left pleural effusion.
--- NOTE | ~2023-02-13 | XR_ITS ---
EXAM: [id number]_CR DATE: 02/13/2023 20:05 HISTORY: ng tube placement . COMPARISON: X-ray chest and CT cap, same date. FINDINGS: NG tube, tip and side port project over the expected location of the stomach. Paucity of small bowel and large bowel gas. Centralization of bowel gas loops. Bibasilar atelectasis/consolidation. Right mi dlung lucency. IMPRESSION: NG tube, in good position. Apparent right lung lucency, possibly artifactual. Recommend x-ray of the chest to exclude a new pneu mothorax. Reviewed, dictated and finalized at location K. IMPRESSION: NG tube, in good position. Apparent right lung lucency, possibly artifactual. Recommend x-ray of the chest to exclude a new pneumothorax.
--- NOTE | 2023-02-13 16:13 | ED.CPR ---
HPI - CPR General Chief Complaint: Cardiac Arrest/CPR Stated Complaint: post cariac arrest History of Present Illness HPI narrative: 67-year-old male presenting after cardiac arrest. History is limited secondary to acuity of condition. History is provided by EMS. They received a call for an unresponsive male. They found him on the floor of his bathroom in [place]. CPR was performed for approximately 15 minutes and patient received 2-3 doses of epinephrine prior to ROSC. I-gel was placed and patient transported to the ER. On arrival, patient is unresponsive with profuse bloody oral secretions. Related Data Allergies Allergy/AdvReac Type Severity Reaction Status Date / Time No Known Allergies Allergy Unknown Verified 11/15/22 06:37 Review of Systems Review of Systems: ROS unobtainable: Yes unobtainable due to medical condition PMFSH Past Medical History Medical History Acute on chronic blood loss anemia Acute on chronic pancreatitis Alcohol abuse Cardiac arrest CHF (congestive heart failure) Coagulopathy Coffee ground emesis Gastric ulcer Gastritis Gastroesophageal reflux disease Hepatic encephalopathy History of tobacco use Pancreatitis (~04/2003) Peptic ulcer disease Portal vein thrombosis Severe anemia Shock liver Thrombocytopenia Tobacco abuse Transaminitis Surgical History Surgical History History of chest tube placement History of esophagogastroduodenoscopy (~04/2003) EGD showed gastritis and edema of the duodenum with prominent veins in the gastric body though no true varices. History of resection of small bowel Related to peptic ulcer disease. Family History Family History Other Unknown family medical history Social History Social History Social History: The patient lives in [place] with his sister who is epileptic. They both help each other at the house. A brother who lived with them has recently and family members took turns caring for him before he passed. Patient admits to ongoing smoking of a pack per day. Patient admits to drinking up to a fifth to pint of various alcohol per day. He has a longstanding history of alcohol abuse, reportedly drinking 28 alcoholic beverages a week. Prior history of marijuana use. He has a brother who is his emergency contact. Smoking packs per day: 0.5 Smoking cigarettes per day: 10.0 Years smoked: 50 Smoking pack-years: 25.00 Smoking status: Current every day smoker Tobacco type: cigarettes Second hand tobacco smoke exposure: Yes Alcohol intake: current Drinks per week: 1 Substance use: never Substance use type: does not use Lack of Transportation: YES Lack of Food: Never True Current Housing: I Have Housing Concerned About Future Housing: No Difficulty Paying Gas/Electric Bills: No Difficulty Paying for Meds: No Currently Unemployed: No Education: Grade School Difficulty w/ Childcare or Family Care: No Gender identity (if verbalized by the patient): Male Spiritual care concerns: No Exam Narrative: GENERAL: Unresponsive HEAD: Normocephalic EYES: Pupils 5 mm, minimally reactive ENT: I-gel in place with brown respiratory secretions NECK: No gross abnormalities CHEST: Supraglottic device in place, frothy brown secretions present, coarse breath sounds bilaterally HEART: Tachycardic, regular rhythm, positive femoral pulses ABDOMEN: Soft, slightly distended EXTREMITIES: No edema lower extremities SKIN: Cool, dry NEURO: Unresponsive PSYCH: Unable to assess Course Vital Signs Vital signs: Vital Signs Pulse Rate 115 H 02/13/23 15:52 Respiratory Rate 14 02/13/23 15:52 Blood Pressure 56/12 L 02/13/23 15:52 Temperature 91.6 F L 02/13/23 22:21
[2023-02-13] MEDS: NOREPINEPHRINE 8 MG/D5W 250 ML 8 MG/250 ML BAG 9.38 MG IV CONT (16:25)
[2023-02-13 16:48] LABS: Alveolar/Arterial O2 Gradient 574.3 mmHg; Base Excess ABG -14.8 mEq/l (+/-2.0); Fractional Inspired Oxygen 100 %; HCO3 ABG 15.7 mEq/l (22.0-26.0); Oxygen Content ABG 5.2 %vol (16.0-22.0); PO2 ABG 64.6 mmHg (80.0-100.0); PO2 FiO2 Ratio Arterial Blood 0.65 %
[2023-02-13 16:50] LABS: Oxygen Saturation ABG 76.2 % (95.0-100.0); PCO2 ABG 74.1 mmHg (35.0-45.0); pH ABG 6.945 (7.350-7.450)
[2023-02-13 16:51] LABS: Oxyhemoglobin 68.7 % THb (90.0-100.0); Site Drawn RIGHT BRACHIAL; Total Hemoglobin 5.2 g/dL (12.0-18.0)
[2023-02-13 16:52] LABS: Arterial Blood Gas Vent Mode CMV; Arterial Blood Gas Ventilator rate 14 /MIN; Device VENTILATOR
[2023-02-13 16:53] LABS: Arterial Blood Gas PEEP 5 cmH2O; Arterial Blood Gas Tidal Volume 380 ml
[2023-02-13] MEDS: PANTOPRAZOLE SODIUM IV 80 MG in SODIUM CHLORIDE 0.9% IV 500 ML 50 MG IV CONT (16:53)
[2023-02-13] MEDS: FENTANYL 2,500MCG/NS250ML(*CRX 2,500 MCG/250 ML BAG 10 MCG IV CONT (17:25)
[2023-02-13 17:45] LABS: Eosinophils Percent Auto 0.2 % (0-4.4); Immature Granulocyte Absolute 0.05 K/mm3 (0.00-0.031); Immature Granulocyte Percent A 1.1 % (0-0.5); Immature Platelet Fraction Pct 5.3 % (0.9-11.2); Lymphocytes Absolute Auto 1.06 K/mm3 (0.9-3.2); Lymphocytes Percent Auto 23.8 % (18.3-44.2); Mean Corpuscular HGB Conc 28.8 g/dl (32-36); Mean Corpuscular Hemoglobin 27.1 pg (26-34); Mean Corpuscular Volume 94.1 fl (80-100); Monocytes Absolute Auto 0.3 K/mm3 (0.1-0.6); Monocytes Percent Auto 6.3 % (2.6-8.5); Neutrophils Absolute Auto 3.1 K/mm3 (1.3-6.7); Neutrophils Percent Auto 68.6 % (45.5-73.1); Nucleated Red Blood Cells Absolute Auto 0.1 K/mm3 (0.0-0.012); Platelet Count Result 56 k/mm3 (150-375); Red Cell Distribution Width 23.4 % (11.5-14.5); White Blood Count 4.5 K/mm3 (4.5-10.0)
[2023-02-13 17:52] LABS: INR 3.3
[2023-02-13 17:54] LABS: Ethanol < 10 mg/dL (<10)
[2023-02-13 17:54] LABS: Partial Thromboplastin Time 94.8 SECONDS (22.3-36.8)
--- NOTE | 2023-02-13 17:59 | PC.NURSE ---
20mg etomidate given IVP at 1606. 100mg rocc given IVP @ 1606. Pt intubated at 1608 with 7.0 ett, 22cm @ lip by Dr. Marino.
[2023-02-13 18:02] LABS: Albumin Level 1.7 g/dL (3.5-5.1); Alkaline Phosphatase 114 U/L (38-126); Anion Gap 21 mmol/L (8-16); Aspartate Amino Transferase 64 U/L (17-59); Bilirubin,Total 0.9 mg/dL (0.2-1.3); Blood Urea Nitrogen 50 mg/dL (9-20); Calcium 7.3 mg/dL (8.4-10.2); Carbon Dioxide 17 mmol/L (22-30); Chloride 102 mmol/L (98-107); Estimated CRCL calculation 15 ml/min; Estimated Glomerular Filt Rate 21; Glucose 60 mg/dL (65-110); Lipase 121 U/L (23-300); Magnesium 1.6 mg/dL (1.6-2.3); Sodium 140 mmol/L (137-145)
[2023-02-13 18:04] LABS: Hemoglobin 4.6 g/dL (14.0-18.0)
[2023-02-13 18:06] LABS: Platelet Estimate Decreased (Adequate); Schistocytes None Seen (NORMAL)
[2023-02-13 18:07] LABS: Hypochromasia 2+ (NORMAL)
[2023-02-13 18:08] LABS: Anisocytosis 3+ (NORMAL)
[2023-02-13 18:10] LABS: Alanine Aminotransferase 38 U/L (6-50); NT Pro B Type Natriuretic Pept 2830 pg/mL (19.9-100); Troponin I 0.047 ng/mL (0.000-0.034)
[2023-02-13 18:11] LABS: Lactic Acid Reflex 14.6 mmol/L (0.7-2.0)
[2023-02-13 18:18] LABS: Influenza A QL RT-PCR Negative (Negative); Influenza B QL RT-PCR Negative (Negative); SARS-CoV-2 RNA PCR Negative (Negative)
[2023-02-13] MEDS: SODIUM CHLORIDE 0.9% IV 250 ML 30 ML IV CONT ×2 (18:50→21:34)
[2023-02-13] MEDS: VANCOMYCIN 750 MG/NS 250 ML 750 MG/250 ML BAG 250 MG IVPB (18:51)
[2023-02-13] MEDS: EPINEPHrine INJ 1 MG in DEXTROSE 5% IN WATER 250 ML 15.06 MG IV CONT (18:52)
[2023-02-13] MEDS: PIPERACILLIN/TAZ 4.5G/NS 100ML 4.5 GM/100 ML BAG IVPB (19:02)
[2023-02-13] MEDS: SODIUM CHLORIDE 0.9% IV 1,000 ML 999 ML IV CONT (19:02)
[2023-02-13] MEDS: NOREPINEPHRINE 8 MG/D5W 250 ML 8 MG/250 ML BAG 56.25 MG IV CONT (20:30)
[2023-02-13] MEDS: CRASH CART LOCKS 1 EACH XX (20:32)
[2023-02-13] MEDS: TUBING, BLOOD SET 1 EACH XX ×3 (20:32→21:34)
[2023-02-13 20:36] LABS: Reflex Lactic Acid Yes or No Add Lactic
[2023-02-13 20:37] LABS: Troponin I 0.327 ng/mL (0.000-0.034)
[2023-02-13 21:23] LABS: Lactic Acid 7.2 mmol/L (0.7-2.0)
--- NOTE | 2023-02-13 23:04 | PCRCNOTE ---
Rt attempted to print pt ABG [employer] sticker when ABG order was received, however pt ABG order was not showing up in [employer]. MD notified and stated it was DC'd due to pt getting transferred.
--- NOTE | 2023-02-14 06:54 | ECG_ITS ---
Measurements Intervals [place] Rate: 88 P: HI: 0 QRS: 22 QRSD: 98 T: -23 QT: 352 QTc: 427 Interpretive Statements SINUS RHYTHM WITH FIRST DEGREE AV BLOCK INFERIOR MYOCARDIAL INFARCTION , PROBABLY RECENT [40+ ms Q WAVE AND/OR ST/T ABNORMALITY IN II/aVF] ACUTE DE COMPARED TO ECG 11/13/2022 20:31:14 MYOCARDIAL INFARCT FINDING NOW PRESENT Electronically Signed On 02-14-2023 12:35:31 CDT by Crista NAZARIO
== END 2023-02-13 22:50 | disposition short-term general hospital (02) ==
LOC: ANHED 16:05
PROVIDERS: Emergency Provider Emergency Medicine; PCP Family Medicine
DX: I46.9 Cardiac arrest, cause unspecified (principal); N17.9 Acute kidney failure, unspecified; R57.8 Other shock; E87.6 Hypokalemia; K92.2 Gastrointestinal hemorrhage, unspecified; R77.8 Other specified abnormalities of plasma proteins; Z11.52 Encounter for screening for COVID-19; I50.9 Heart failure, unspecified; K86.1 Other chronic pancreatitis; K21.9 Gastro-esophageal reflux disease without esophagitis; K76.82 Hepatic encephalopathy; D69.6 Thrombocytopenia, unspecified; D50.0 Iron deficiency anemia secondary to blood loss (chronic); F17.210 Nicotine dependence, cigarettes, uncomplicated; F10.10 Alcohol abuse, uncomplicated; Y90.0 Blood alcohol level of less than 20 mg/100 ml; Z87.11 Personal history of peptic ulcer disease; Z79.84 Long term (current) use of oral hypoglycemic drugs; K74.60 Unspecified cirrhosis of liver; K76.6 Portal hypertension; R18.8 Other ascites; K76.0 Fatty (change of) liver, not elsewhere classified; I44.0 Atrioventricular block, first degree; R94.31 Abnormal electrocardiogram [ECG] [EKG]
CPT/HCPCS: 31500; 36415; 36430; 36556; 36600; 70450; 71045; 71260; 74177; 80053; 80307; 82805; 83605; 83690; 83735; 83880; 84484; 85025; 85055; 85610; 85730; 86850; 86900; 86901; 86920; 86923; 87040; 87636; 92950; 93005; 96361; 96365; 96366; 96367; 96368; 99285; C1751; C9113; J0171; J2354; J2543; J3010; J3370; J7030; J7040; J7050; J7060; P9016; P9017; Q9967